=== PATIENT | female | born 1930 | race African-American/Black ===

== ENCOUNTER 2016-12-18 08:49 | Inpatient (IN) | payer MEDICARE, BC, MEDICAID ==
[~2016-12-18] VITALS: Ht 165.1 cm; Wt 68.0 kg
[~2016-12-18 08:49] MED LIST: AMLO10TA4 GT; ASPI-1035 GT; ATOR10TA GT; CLON0.1T GT; DOCU-138 GT; DORZ10DR12 EACHEYE; FERR-63 GT; KEPP250 GT; LACT10SO7 GT; LANS30CA55 GT; MAG355OR39 GT; MEMA10TA11 GT; TRAVO EACHEYE; XALAO EACHEYE
[2016-12-18] MEDS ORDERED: PIPERACILLIN/TAZ 3.375G PREMIX 50 ML IV ONE (09:45)
[2016-12-18] MEDS ORDERED: VANCOMYCIN 1 G PREMIX 200 ML IV ONE (09:45)
[2016-12-18 10:14] LABS: BASOPHILS % 0.6 % (0.0-2.0); HEMATOCRIT. 45.6 % (36.0-48.0); LYMPHOCYTES % 26.1 % (20.0-50.0); MEAN CORPUSCULAR HEMOGLOBIN 27.8 pg (28.0-32.0); MEAN CORPUSCULAR VOLUME 84.3 fL (81.0-99.0); MEAN PLATELET VOLUME 9.8 fl (7.4-10.4); MONOCYTES % 8.7 % (2.0-8.0); NEUTROPHILS % 61.6 % (40.0-76.0); PLATELET 202 x1000/uL (130-400); RED BLOOD CELL COUNT 5.42 mill/uL (4.2-5.4); RED CELL DISTRIBUTION WIDTH 14.7 % (11.6-14.6)
[2016-12-18 10:21] LABS: CHLORIDE 109 mEq/L (98-107); INDEX HEMOLYSI 1 (1-3); INDEX ICTERIC 1 (1-4); INDEX LIPEMIC 1 (1-3)
[2016-12-18 10:32] LABS: ALANINE AMINOTRANSFERASE 19 IU/L (13-61); ALBUMIN 3.6 g/dL (3.4-5.0); ANION GAP 11; CALCIUM 9.2 mg/dL (8.5-10.1); CARBON DIOXIDE 31 mEq/L (21-32); TROPONIN I < 0.02 ng/mL (0.00-0.04); UREA NITROGEN BLOOD 9 mg/dL (7-21); eGFR > 60 mL/min (>60)
[2016-12-18 10:34] LABS: PARTIAL THROMBOPLASTIN TIME 27.8 sec (24.0-34.0); PROTHROMBIN TIME 10.8 sec
[2016-12-18 11:12] LABS: CLARITY URINE CLOUDY (CLEAR); COLOR URINE YELLOW (YELLOW); GLUCOSE URINE NEGATIVE (NEGATIVE); KETONES URINE NEGATIVE (NEGATIVE); LEUKOCYTE ESTERASE URINE NEGATIVE (NEGATIVE); NITRITE URINE NEGATIVE (NEGATIVE); OCCULT BLOOD URINE NEGATIVE (NEGATIVE); PH URINE 7.5 (4.5-8.0); PROTEIN URINE NEGATIVE (NEGATIVE); SPECIFIC GRAVITY URINE 1.011 (1.005-1.030)
[2016-12-18 11:28] LABS: AMORPHOUS SEDIMENT URINE 3+ /lpf; BACTERIA URINE TRACE; RBC URINE NONE SEEN /hpf (0-2); SQUAMOUS EPITHELIAL CELL URINE 2+ /lpf (RARE/1+); WBC URINE 0-2 /hpf (0-2)
[2016-12-18] MEDS: PANTOPRAZOLE SODIUM 40 MG/VIAL IV SCH (12:41)
[2016-12-18] MEDS ORDERED: HYDROMORPHONE HCL/PF 2MG/ML CPJ IV PRN (13:30)
[2016-12-18] MEDS ORDERED: GUAIFENESIN 200MG/10ML SUGAR FREE UDC PO PRN (13:30)
[2016-12-18] MEDS ORDERED: DOCUSATE SODIUM 100MG CAPSULE PO PRN (13:30)
[2016-12-18] MEDS ORDERED: LORAZEPAM 2MG/ML CPJ IV PRN (13:30)
[2016-12-18] MEDS ORDERED: MAGNESIUM/ALUMINUM HYDROXIDE/SIMETHICONE 30ML UDC PO PRN (13:30)
[2016-12-18] MEDS ORDERED: DIPHENHYDRAMINE 50MG/ML VIAL IV PRN (13:30)
[2016-12-18] MEDS ORDERED: CLONIDINE 0.1MG TABLET PO PRN (13:30)
[2016-12-18] MEDS ORDERED: ONDANSETRON HCL 4MG/2ML VIAL IV PRN (13:30)
[2016-12-18] MEDS ORDERED: ACETAMINOPHEN 325MG TABLET PO PRN (13:30)
[2016-12-18] MEDS ORDERED: HYDROCODONE/ACETAMINOPHEN 5/325MG TABLET PO PRN (13:30)
[2016-12-18] MEDS ORDERED: IPRATROPIUM/ALBUTEROL 0.5-3(2.5)MG/3ML NEB INH PRN (13:30)
[2016-12-18] MEDS ORDERED: IBUPROFEN 600MG TABLET PO ONE (13:45)
[2016-12-18] MEDS ORDERED: NA PHOS,M-B/NA PHOS,DI-BA ENEMA 118ML PR PRN (14:30)
[2016-12-18] MEDS ORDERED: ENOXAPARIN 40MG/0.4ML SYR SUBCUT SCH (15:00)
[2016-12-18 16:00] VITALS: BP 128/82
[2016-12-18] MEDS: DEXT 5%/0.45% NACL 1000ML 1,000 ML IV SCH (16:39)
[2016-12-18] MEDS: PIPERACILLIN/TAZ 3.375G PREMIX 50 ML IV SCH (19:02)
[2016-12-18 19:13] LABS: CHLORIDE 111 mEq/L (98-107); INDEX HEMOLYSI 1 (1-3); INDEX ICTERIC 1 (1-4); INDEX LIPEMIC 1 (1-3)
[2016-12-18 19:19] LABS: ANION GAP 11; CALCIUM 8.8 mg/dL (8.5-10.1); CARBON DIOXIDE 27 mEq/L (21-32); UREA NITROGEN BLOOD 9 mg/dL (7-21); eGFR > 60 mL/min (>60)
[2016-12-18 20:00] VITALS: BP_SYST 117; BP_SYST 140; BP_DIAS 77; BP_DIAS 86
[2016-12-19] VITALS: BP 140/86
[2016-12-19] MEDS: PIPERACILLIN/TAZ 3.375G PREMIX 50 ML IV SCH ×3 (02:01→19:02)
[2016-12-19 04:00] VITALS: BP 135/90
[2016-12-19] MEDS ORDERED: CEFAZOLIN 1000MG PREMIX 50 ML IV NR (05:00)
[2016-12-19 07:19] LABS: INR 1.1; PARTIAL THROMBOPLASTIN TIME 25.6 sec (24.0-34.0)
[2016-12-19 07:27] LABS: BASOPHILS % 0.6 % (0.0-2.0); EOSINOPHILS % 2.6 % (0.0-5.0); HEMATOCRIT. 41.9 % (36.0-48.0); HEMOGLOBIN. 13.5 g/dL (12.0-16.0); LYMPHOCYTES % 25.3 % (20.0-50.0); MEAN CORPUSCULAR HEMOGLOBIN 27.4 pg (28.0-32.0); MEAN CORPUSCULAR HGB CONC 32.1 g/dL (31.0-37.0); MEAN CORPUSCULAR VOLUME 85.5 fL (81.0-99.0); MEAN PLATELET VOLUME 10.2 fl (7.4-10.4); MONOCYTES % 7.7 % (2.0-8.0); NEUTROPHILS % 63.8 % (40.0-76.0); PLATELET 190 x1000/uL (130-400); RED CELL DISTRIBUTION WIDTH 15.4 % (11.6-14.6); WHITE BLOOD COUNT 8.4 x1000/uL (4.5-11.0)
[2016-12-19 08:00] VITALS: BP 153/92
[2016-12-19 08:27] LABS: ALANINE AMINOTRANSFERASE 15 IU/L (13-61); ALBUMIN 3.2 g/dL (3.4-5.0); ANION GAP 10; CALCIUM 8.7 mg/dL (8.5-10.1); CARBON DIOXIDE 29 mEq/L (21-32); CHLORIDE 111 mEq/L (98-107); HDL CHOLESTEROL 53 mg/dL (40-59); INDEX HEMOLYSI 4 (1-3); INDEX ICTERIC 1 (1-4); INDEX LIPEMIC 1 (1-3); LDL CHOLESTEROL 87 mg/dL (5-100); TRIGLYCERIDE 131 mg/dL (0-150); UREA NITROGEN BLOOD 7 mg/dL (7-21); eGFR > 60 mL/min (>60)
[2016-12-19] MEDS ORDERED: VANCOMYCIN 1 G PREMIX 200 ML IV SCH (09:00)
[2016-12-19] MEDS: DEXT 5%/0.45% NACL 1000ML 1,000 ML IV SCH ×2 (10:05→22:17)
[2016-12-19] MEDS: VANCOMYCIN 1 G PREMIX 200 ML IV SCH (10:06)
[2016-12-19] MEDS: PANTOPRAZOLE SODIUM 40 MG/VIAL IV SCH (10:07)
[2016-12-19] MEDS ORDERED: SIMETHICONE 40 MG/0.6 ML 30ML ONE ×2 (11:45→13:22)
[2016-12-19] MEDS ORDERED: SODIUM CHLORIDE 0.9% 10ML VIAL ONE (11:45)
[2016-12-19 12:00] VITALS: BP 140/73
[2016-12-19] MEDS ORDERED: FENTANYL CITRATE/PF 50MCG/ML 2ML VIAL ONE (13:22)
[2016-12-19] MEDS ORDERED: MIDAZOLAM HCL 5 MG/5 ML VIAL ONE (13:23)
[2016-12-19] MEDS ORDERED: MIDAZOLAM HCL 2 MG/2 ML VIAL IV PRN (13:36)
[2016-12-19 16:00] VITALS: BP 128/78
[2016-12-19] MEDS ORDERED: LACTULOSE 20G/30ML UDC GT PRN (16:30)
[2016-12-19] MEDS ORDERED: MAGNESIUM/ALUMINUM HYDROXIDE/SIMETHICONE 30ML UDC GT SCH (16:30)
[2016-12-19] MEDS ORDERED: CLONIDINE 0.1MG TABLET GT PRN (16:30)
[2016-12-19] MEDS ORDERED: LANSOPRAZOLE 30MG DR CAPSULE GT SCH (17:20)
[2016-12-19] MEDS: DORZOLAM/TIMOLOL 2.23/0.68% OPHTH DROPS 10ML EACHEYE SCH (19:02)
[2016-12-19 20:00] VITALS: BP 129/64
[2016-12-19] MEDS: ATORVASTATIN CALCIUM 10MG TABLET GT SCH (22:17)
[2016-12-19] MEDS: LEVETIRACETAM 500MG/5ML CUP GT SCH (22:17)
[2016-12-19] MEDS: MEMANTINE HCL 10MG TABLET GT SCH (22:17)
[2016-12-20] VITALS: BP 119/67
[2016-12-20] MEDS: LATANOPROST 0.005% OPHTH DROPS 2.5ML EACHEYE SCH ×2 (01:12→20:10)
[2016-12-20] MEDS: PIPERACILLIN/TAZ 3.375G PREMIX 50 ML IV SCH ×3 (01:12→18:44)
[2016-12-20 04:00] VITALS: BP 142/78
[2016-12-20 08:00] VITALS: BP 186/92
[2016-12-20] MEDS ORDERED: TRAVOPROST EACHEYE SCH (09:00)
[2016-12-20 09:39] LABS: BASOPHILS % 0.7 % (0.0-2.0); HEMATOCRIT. 41.2 % (36.0-48.0); HEMOGLOBIN. 13.3 g/dL (12.0-16.0); LYMPHOCYTES % 23.8 % (20.0-50.0); MEAN CORPUSCULAR HEMOGLOBIN 27.3 pg (28.0-32.0); MEAN CORPUSCULAR HGB CONC 32.3 g/dL (31.0-37.0); MEAN CORPUSCULAR VOLUME 84.5 fL (81.0-99.0); MEAN PLATELET VOLUME 9.8 fl (7.4-10.4); MONOCYTES % 8.1 % (2.0-8.0); NEUTROPHILS % 64.4 % (40.0-76.0); PLATELET 182 x1000/uL (130-400); RED BLOOD CELL COUNT 4.88 mill/uL (4.2-5.4); RED CELL DISTRIBUTION WIDTH 14.8 % (11.6-14.6); WHITE BLOOD COUNT 7.5 x1000/uL (4.5-11.0)
[2016-12-20] MEDS: PANTOPRAZOLE SODIUM 40 MG/VIAL IV SCH (09:47)
[2016-12-20] MEDS: MEMANTINE HCL 10MG TABLET GT SCH ×2 (09:47→20:10)
[2016-12-20] MEDS: VANCOMYCIN 1 G PREMIX 200 ML IV SCH (09:47)
[2016-12-20] MEDS: DOCUSATE SODIUM 100MG CAPSULE GT SCH (09:47)
[2016-12-20] MEDS: LEVETIRACETAM 500MG/5ML CUP GT SCH ×2 (09:48→20:10)
[2016-12-20] MEDS: DORZOLAM/TIMOLOL 2.23/0.68% OPHTH DROPS 10ML EACHEYE SCH ×2 (09:48→18:44)
[2016-12-20] MEDS: AMLODIPINE 10MG TABLET GT SCH (09:48)
[2016-12-20] MEDS: DEXT 5%/0.45% NACL 1000ML 1,000 ML IV SCH (09:54)
[2016-12-20 10:19] LABS: ANION GAP 10; CALCIUM 8.2 mg/dL (8.5-10.1); CARBON DIOXIDE 27 mEq/L (21-32); CHLORIDE 109 mEq/L (98-107); INDEX HEMOLYSI 2 (1-3); INDEX ICTERIC 1 (1-4); INDEX LIPEMIC 1 (1-3); UREA NITROGEN BLOOD 9 mg/dL (7-21); eGFR > 60 mL/min (>60)
[2016-12-20 12:00] VITALS: BP 167/112
[2016-12-20 16:00] VITALS: BP 128/92
[2016-12-20 20:00] VITALS: BP 156/98
[2016-12-20] MEDS ORDERED: POTASSIUM CHLORIDE 20MEQ TABLET SR PO NR (20:00)
[2016-12-20] MEDS: ATORVASTATIN CALCIUM 10MG TABLET GT SCH (20:10)
[2016-12-21] VITALS: BP 155/88
[2016-12-21] MEDS: PIPERACILLIN/TAZ 3.375G PREMIX 50 ML IV SCH ×3 (02:12→17:38)
[2016-12-21] MEDS: DEXT 5%/0.45% NACL 1000ML 1,000 ML IV SCH ×2 (02:13→16:11)
[2016-12-21 04:00] VITALS: BP 149/85
[2016-12-21 06:58] LABS: HEMATOCRIT. 40.5 % (36.0-48.0); HEMOGLOBIN. 13.5 g/dL (12.0-16.0); MEAN CORPUSCULAR HGB CONC 33.4 g/dL (31.0-37.0); PLATELET 194 x1000/uL (130-400); RED BLOOD CELL COUNT 4.82 mill/uL (4.2-5.4); RED CELL DISTRIBUTION WIDTH 14.9 % (11.6-14.6); WHITE BLOOD COUNT 8.4 x1000/uL (4.5-11.0)
[2016-12-21 07:17] LABS: ANION GAP 10; CALCIUM 8.1 mg/dL (8.5-10.1); CARBON DIOXIDE 26 mEq/L (21-32); CHLORIDE 111 mEq/L (98-107); INDEX HEMOLYSI 1 (1-3); INDEX ICTERIC 1 (1-4); INDEX LIPEMIC 1 (1-3); UREA NITROGEN BLOOD 6 mg/dL (7-21); eGFR > 60 mL/min (>60)
[2016-12-21 08:00] VITALS: BP 152/96
[2016-12-21] MEDS: PANTOPRAZOLE SODIUM 40 MG/VIAL IV SCH (08:50)
[2016-12-21] MEDS: MEMANTINE HCL 10MG TABLET GT SCH (08:51)
[2016-12-21] MEDS: VANCOMYCIN 1 G PREMIX 200 ML IV SCH (08:51)
[2016-12-21] MEDS: DORZOLAM/TIMOLOL 2.23/0.68% OPHTH DROPS 10ML EACHEYE SCH ×2 (08:51→17:38)
[2016-12-21] MEDS: DOCUSATE SODIUM 100MG CAPSULE GT SCH (08:51)
[2016-12-21] MEDS: AMLODIPINE 10MG TABLET GT SCH (08:51)
[2016-12-21] MEDS: LEVETIRACETAM 500MG/5ML CUP GT SCH (08:52)
[2016-12-21 10:20] LABS: PLATELET ESTIMATE NORMAL
[2016-12-21 12:00] VITALS: BP 148/83
[2016-12-21 16:00] VITALS: BP 146/77
[2016-12-21 17:58] VITALS: BP 146/77
[2016-12-21] MEDS ORDERED: VANCOMYCIN 750 MG PREMIX 150 ML IV SCH (21:00)
== END 2016-12-21 19:10 | DRG 393 ==
LOC: ER 08:57 → 6EST 10:26
PROVIDERS: ADMIT Internal Medicine; ATTEND Internal Medicine
PROC: 0D20XUZ Change Feeding Device in Upper Intestinal Tract, External Approach (ICD-10-PCS; principal; 2016-12-19 13:00)
DX: K94.23 Gastrostomy malfunction (principal); I63.9 Cerebral infarction, unspecified; L03.311 Cellulitis of abdominal wall; E46 Unspecified protein-calorie malnutrition; E87.0 Hyperosmolality and hypernatremia; E86.0 Dehydration; E78.00 Pure hypercholesterolemia, unspecified; E78.5 Hyperlipidemia, unspecified; F02.80 Dementia in other diseases classified elsewhere, unspecified severity, without behavioral disturbance, psychotic disturbance, mood disturbance, and anxiety; G30.9 Alzheimer's disease, unspecified; K20.9 Esophagitis, unspecified; G40.909 Epilepsy, unspecified, not intractable, without status epilepticus; H40.9 Unspecified glaucoma; I10 Essential (primary) hypertension; I77.810 Thoracic aortic ectasia; Z86.73 Personal history of transient ischemic attack (TIA), and cerebral infarction without residual deficits; Z79.899 Other long term (current) drug therapy; Z68.25 Body mass index [BMI] 25.0-25.9, adult
CPT/HCPCS: 36415; 51702; 71010; 80048; 80053; 80061; 80202; 81001; 83605; 84484; 85007; 85025; 85027; 85610; 85730; 87040; 87070; 87077; 87086; 87186; 87205; 93005; 96365; 96367; 96375; 99285; A4216; C1893; C9113; J0690; J2250; J2543; J3010; J3370

== ENCOUNTER 2016-12-29 08:31 | Inpatient (IN) | payer MEDICARE, BC, MEDICAID ==
[~2016-12-29] VITALS: Ht 154.9 cm; Wt 61.7 kg
[2016-12-29 09:13] LABS: BASOPHILS % 1.1 % (0.0-2.0); EOSINOPHILS % 4.8 % (0.0-5.0); HEMATOCRIT. 42.7 % (36.0-48.0); HEMOGLOBIN. 13.9 g/dL (12.0-16.0); LYMPHOCYTES % 22.4 % (20.0-50.0); MEAN CORPUSCULAR HEMOGLOBIN 27.8 pg (28.0-32.0); MEAN CORPUSCULAR HGB CONC 32.6 g/dL (31.0-37.0); MEAN CORPUSCULAR VOLUME 85.2 fL (81.0-99.0); MEAN PLATELET VOLUME 10.1 fl (7.4-10.4); MONOCYTES % 7.4 % (2.0-8.0); NEUTROPHILS % 64.3 % (40.0-76.0); PLATELET 166 x1000/uL (130-400); RED BLOOD CELL COUNT 5.01 mill/uL (4.2-5.4); RED CELL DISTRIBUTION WIDTH 15.4 % (11.6-14.6); WHITE BLOOD COUNT 9.7 x1000/uL (4.5-11.0)
[2016-12-29 09:23] LABS: ALBUMIN 3.1 g/dL (3.4-5.0); ANION GAP 10; CALCIUM 8.7 mg/dL (8.5-10.1); CARBON DIOXIDE 30 mEq/L (21-32); CHLORIDE 110 mEq/L (98-107); INDEX HEMOLYSI 1 (1-3); INDEX ICTERIC 1 (1-4); INDEX LIPEMIC 1 (1-3); UREA NITROGEN BLOOD 17 mg/dL (7-21)
[2016-12-29 09:28] LABS: ALANINE AMINOTRANSFERASE 19 IU/L (13-61); eGFR > 60 mL/min (>60)
[2016-12-29 09:31] LABS: PROTHROMBIN TIME 10.5 sec
[2016-12-29 10:32] LABS: CLARITY URINE CLOUDY (CLEAR); COLOR URINE YELLOW (YELLOW); GLUCOSE URINE NEGATIVE (NEGATIVE); KETONES URINE NEGATIVE (NEGATIVE); LEUKOCYTE ESTERASE URINE TRACE (NEGATIVE); NITRITE URINE NEGATIVE (NEGATIVE); OCCULT BLOOD URINE NEGATIVE (NEGATIVE); PROTEIN URINE NEGATIVE (NEGATIVE); SPECIFIC GRAVITY URINE 1.022 (1.005-1.030)
[2016-12-29] MEDS ORDERED: HYDROMORPHONE HCL/PF 2MG/ML CPJ IV PRN (10:45)
[2016-12-29] MEDS ORDERED: DOCUSATE SODIUM 100MG CAPSULE PO PRN (10:45)
[2016-12-29] MEDS ORDERED: DIPHENHYDRAMINE 50MG/ML VIAL IV PRN (10:45)
[2016-12-29] MEDS ORDERED: IPRATROPIUM/ALBUTEROL 0.5-3(2.5)MG/3ML NEB INH PRN (10:45)
[2016-12-29] MEDS ORDERED: ACETAMINOPHEN 325MG TABLET PO PRN (10:45)
[2016-12-29] MEDS ORDERED: ONDANSETRON HCL 4MG/2ML VIAL IV PRN (10:45)
[2016-12-29] MEDS ORDERED: MAGNESIUM/ALUMINUM HYDROXIDE/SIMETHICONE 30ML UDC PO PRN (10:45)
[2016-12-29] MEDS ORDERED: CLONIDINE 0.1MG TABLET PO PRN (10:45)
[2016-12-29] MEDS ORDERED: NA PHOS,M-B/NA PHOS,DI-BA ENEMA 118ML PR PRN (10:45)
[2016-12-29] MEDS ORDERED: GUAIFENESIN 200MG/10ML SUGAR FREE UDC PO PRN (10:45)
[2016-12-29] MEDS ORDERED: LORAZEPAM 2MG/ML CPJ IV PRN (10:45)
[2016-12-29] MEDS ORDERED: HYDROCODONE/ACETAMINOPHEN 5/325MG TABLET PO PRN (10:45)
[2016-12-29 10:46] LABS: SQUAMOUS EPITHELIAL CELL URINE 1+ /lpf (RARE/1+)
[2016-12-29 10:47] LABS: RBC URINE 0-2 /hpf (0-2)
[2016-12-29 10:48] LABS: AMORPHOUS SEDIMENT URINE 2+ /lpf; BACTERIA URINE 1+
[2016-12-29 10:57] VITALS: BP 142/87
[2016-12-29 12:00] VITALS: BP 142/87
[2016-12-29] MEDS: ENOXAPARIN 40MG/0.4ML SYR SUBCUT SCH (12:00)
[2016-12-29 16:00] VITALS: BP 177/103
[2016-12-29 20:00] VITALS: BP 147/99
[2016-12-29] MEDS ORDERED: MAGNESIUM/ALUMINUM HYDROXIDE/SIMETHICONE 30ML UDC GT PRN (20:15)
[2016-12-29] MEDS ORDERED: CLONIDINE 0.1MG TABLET GT PRN (20:15)
[2016-12-29] MEDS: LEVETIRACETAM 250MG TABLET GT SCH (20:15)
[2016-12-29] MEDS ORDERED: AMLODIPINE 10MG TABLET GT SCH (20:30)
[2016-12-29] MEDS: MEMANTINE HCL 10MG TABLET GT SCH (21:00)
[2016-12-29] MEDS: ATORVASTATIN CALCIUM 10MG TABLET PO SCH (21:00)
[2016-12-30] VITALS: BP 137/96
[2016-12-30 04:00] VITALS: BP 145/98
[2016-12-30] MEDS: DEXT 5%/0.45% NACL 1000ML 1,000 ML IV SCH ×2 (04:37→22:44)
[2016-12-30 08:00] VITALS: BP 134/99
[2016-12-30] MEDS: LEVETIRACETAM 250MG TABLET GT SCH ×2 (08:15→22:43)
[2016-12-30] MEDS: AMLODIPINE 10MG TABLET PO SCH (09:00)
[2016-12-30] MEDS: ENOXAPARIN 40MG/0.4ML SYR SUBCUT SCH (09:00)
[2016-12-30 10:11] LABS: BASOPHILS % 0.5 % (0.0-2.0); EOSINOPHILS % 2.5 % (0.0-5.0); HEMATOCRIT. 43.9 % (36.0-48.0); HEMOGLOBIN. 14.1 g/dL (12.0-16.0); LYMPHOCYTES % 21.5 % (20.0-50.0); MEAN CORPUSCULAR HEMOGLOBIN 27.5 pg (28.0-32.0); MEAN CORPUSCULAR HGB CONC 32.2 g/dL (31.0-37.0); MEAN CORPUSCULAR VOLUME 85.6 fL (81.0-99.0); MEAN PLATELET VOLUME 10.8 fl (7.4-10.4); MONOCYTES % 6.9 % (2.0-8.0); NEUTROPHILS % 68.6 % (40.0-76.0); PLATELET 164 x1000/uL (130-400); RED BLOOD CELL COUNT 5.13 mill/uL (4.2-5.4); RED CELL DISTRIBUTION WIDTH 15.2 % (11.6-14.6); WHITE BLOOD COUNT 7.9 x1000/uL (4.5-11.0)
[2016-12-30] MEDS: MEMANTINE HCL 10MG TABLET GT SCH ×2 (10:39→22:43)
[2016-12-30 10:45] LABS: ALANINE AMINOTRANSFERASE 17 IU/L (13-61); ALBUMIN 2.9 g/dL (3.4-5.0); ANION GAP 11; CALCIUM 8.4 mg/dL (8.5-10.1); CARBON DIOXIDE 25 mEq/L (21-32); CHLORIDE 113 mEq/L (98-107); HDL CHOLESTEROL 51 mg/dL (40-59); INDEX HEMOLYSI 1 (1-3); INDEX ICTERIC 1 (1-4); INDEX LIPEMIC 1 (1-3); LDL CHOLESTEROL 112 mg/dL (5-100); TRIGLYCERIDE 111 mg/dL (0-150); UREA NITROGEN BLOOD 10 mg/dL (7-21); eGFR > 60 mL/min (>60)
[2016-12-30 12:00] VITALS: BP 138/99
[2016-12-30] MEDS ORDERED: DIATR MEGLU/DIATRIZOATE SOLN 120ML ONE (13:22)
[2016-12-30 16:00] VITALS: BP 127/85
[2016-12-30] MEDS: ATORVASTATIN CALCIUM 10MG TABLET PO SCH (22:43)
[2016-12-30] MEDS: ENOXAPARIN 30MG/0.3ML SYR SUBCUT SCH (22:43)
[2016-12-31 00:03] VITALS: BP 148/93
[2016-12-31 04:00] VITALS: BP 154/98
[2016-12-31 07:31] LABS: BASOPHILS % 0.5 % (0.0-2.0); EOSINOPHILS % 1.7 % (0.0-5.0); HEMATOCRIT. 44.7 % (36.0-48.0); HEMOGLOBIN. 14.6 g/dL (12.0-16.0); LYMPHOCYTES % 23.8 % (20.0-50.0); MEAN CORPUSCULAR HEMOGLOBIN 27.6 pg (28.0-32.0); MEAN CORPUSCULAR HGB CONC 32.6 g/dL (31.0-37.0); MEAN CORPUSCULAR VOLUME 84.7 fL (81.0-99.0); MEAN PLATELET VOLUME 11.1 fl (7.4-10.4); MONOCYTES % 6.1 % (2.0-8.0); NEUTROPHILS % 67.9 % (40.0-76.0); PLATELET 189 x1000/uL (130-400); RED BLOOD CELL COUNT 5.27 mill/uL (4.2-5.4); RED CELL DISTRIBUTION WIDTH 15.3 % (11.6-14.6); WHITE BLOOD COUNT 7.5 x1000/uL (4.5-11.0)
[2016-12-31 07:58] LABS: ANION GAP 13; CALCIUM 9.2 mg/dL (8.5-10.1); CARBON DIOXIDE 25 mEq/L (21-32); CHLORIDE 112 mEq/L (98-107); INDEX HEMOLYSI 1 (1-3); INDEX ICTERIC 1 (1-4); INDEX LIPEMIC 1 (1-3); UREA NITROGEN BLOOD 11 mg/dL (7-21); eGFR > 60 mL/min (>60)
[2016-12-31 08:00] VITALS: BP 139/77
[2016-12-31] MEDS: LEVETIRACETAM 250MG TABLET GT SCH ×2 (08:53→22:24)
[2016-12-31] MEDS: AMLODIPINE 10MG TABLET PO SCH (08:53)
[2016-12-31] MEDS: DOCUSATE SODIUM 100MG CAPSULE GT SCH (08:53)
[2016-12-31] MEDS: MEMANTINE HCL 10MG TABLET GT SCH ×2 (08:53→22:27)
[2016-12-31 12:00] VITALS: BP 145/95
[2016-12-31] MEDS ORDERED: PROPOFOL 200MG/20ML VIAL IV ONE (12:51)
[2016-12-31] MEDS ORDERED: FENTANYL CITRATE/PF 50MCG/ML 2ML VIAL ONE (12:52)
[2016-12-31] MEDS ORDERED: MIDAZOLAM HCL 2 MG/2 ML VIAL ONE (12:52)
[2016-12-31] MEDS: DEXT 5%/0.45% NACL 1000ML 1,000 ML IV SCH (14:16)
[2016-12-31 16:00] VITALS: BP 146/88
[2016-12-31] MEDS ORDERED: ACETAMINOPHEN 325MG TABLET GT PRN (16:46)
[2016-12-31] MEDS ORDERED: AMLODIPINE 10MG TABLET GT SCH (16:55)
[2016-12-31] MEDS ORDERED: ATORVASTATIN CALCIUM 10MG TABLET GT SCH (16:56)
[2016-12-31] MEDS ORDERED: CLONIDINE 0.1MG TABLET GT PRN (16:59)
[2016-12-31] MEDS ORDERED: GUAIFENESIN 200MG/10ML SUGAR FREE UDC GT PRN (17:00)
[2016-12-31 20:04] VITALS: BP 152/97
[2016-12-31] MEDS: ENOXAPARIN 30MG/0.3ML SYR SUBCUT SCH (22:24)
[2016-12-31] MEDS: ATORVASTATIN CALCIUM 10MG TABLET GT SCH (22:24)
[2017-01-01 00:10] VITALS: BP 159/97
[2017-01-01 03:59] VITALS: BP 155/108
[2017-01-01 08:00] VITALS: BP 131/92
[2017-01-01] MEDS: DOCUSATE SODIUM 100MG CAPSULE GT SCH (09:57)
[2017-01-01] MEDS: LEVETIRACETAM 250MG TABLET GT SCH ×2 (09:57→22:09)
[2017-01-01] MEDS: AMLODIPINE 10MG TABLET GT SCH (09:58)
[2017-01-01] MEDS: MEMANTINE HCL 10MG TABLET GT SCH ×2 (09:58→22:09)
[2017-01-01 12:00] VITALS: BP 146/101
[2017-01-01 16:00] VITALS: BP 132/90
[2017-01-01] MEDS: ATORVASTATIN CALCIUM 10MG TABLET GT SCH (22:09)
[2017-01-01] MEDS: ENOXAPARIN 30MG/0.3ML SYR SUBCUT SCH (22:11)
[2017-01-02] VITALS: BP 140/82
[2017-01-02 04:00] VITALS: BP 148/75
[2017-01-02] MEDS: DEXT 5%/0.45% NACL 1000ML 1,000 ML IV SCH ×2 (06:50→09:19)
[2017-01-02 08:00] VITALS: BP 152/84
[2017-01-02] MEDS: DOCUSATE SODIUM 100MG CAPSULE GT SCH (08:52)
[2017-01-02] MEDS: LEVETIRACETAM 250MG TABLET GT SCH (08:53)
[2017-01-02] MEDS: MEMANTINE HCL 10MG TABLET GT SCH (08:53)
[2017-01-02] MEDS: AMLODIPINE 10MG TABLET GT SCH (08:53)
[2017-01-02 12:00] VITALS: BP 128/85
[2017-01-02 12:11] VITALS: BP 128/85
== END 2017-01-02 14:00 | DRG 919 ==
LOC: ER 08:41 → 6EST 08:57
PROVIDERS: ADMIT Internal Medicine; ATTEND Internal Medicine
PROC: 0DJ08ZZ Inspection of Upper Intestinal Tract, Via Natural or Artificial Opening Endoscopic (ICD-10-PCS; 2016-12-31)
PROC: 0D20XUZ Change Feeding Device in Upper Intestinal Tract, External Approach (ICD-10-PCS; principal; 2016-12-31 11:30)
DX: T85.528A Displacement of other gastrointestinal prosthetic devices, implants and grafts, initial encounter (principal); E43 Unspecified severe protein-calorie malnutrition; E78.5 Hyperlipidemia, unspecified; F02.80 Dementia in other diseases classified elsewhere, unspecified severity, without behavioral disturbance, psychotic disturbance, mood disturbance, and anxiety; I10 Essential (primary) hypertension; E86.0 Dehydration; G30.9 Alzheimer's disease, unspecified; F01.50 Vascular dementia, unspecified severity, without behavioral disturbance, psychotic disturbance, mood disturbance, and anxiety; G40.909 Epilepsy, unspecified, not intractable, without status epilepticus; I25.10 Atherosclerotic heart disease of native coronary artery without angina pectoris; Y83.3 Surgical operation with formation of external stoma as the cause of abnormal reaction of the patient, or of later complication, without mention of misadventure at the time of the procedure; Z93.1 Gastrostomy status; Z86.73 Personal history of transient ischemic attack (TIA), and cerebral infarction without residual deficits; Z74.01 Bed confinement status; Z68.25 Body mass index [BMI] 25.0-25.9, adult; Y92.89 Other specified places as the place of occurrence of the external cause
CPT/HCPCS: 36415; 74000; 80048; 80053; 80061; 81001; 85025; 85610; 87493; 99285; A6261; C1893; J1650; J2250; J2704; J3010; Q9963

== ENCOUNTER 2017-01-08 13:18 | Emergency (ER) | payer MEDICARE, BC, MEDICAID ==
[~2017-01-08] VITALS: Ht 165.1 cm; Wt 65.0 kg
[2017-01-08] MEDS ORDERED: LIDOCAINE HCL/EPINEPHRINE 1%-EPI 1:100,000 20 ML VIAL MC ONE (14:00)
[2017-01-08 16:49] VITALS: BP 119/74
== END 2017-01-08 17:07 | disposition home or self-care (01) ==
LOC: ER 13:32
DX: L02.413 Cutaneous abscess of right upper limb (principal); M62.48 Contracture of muscle, other site; R03.0 Elevated blood-pressure reading, without diagnosis of hypertension; G93.40 Encephalopathy, unspecified; R13.10 Dysphagia, unspecified; E78.00 Pure hypercholesterolemia, unspecified; K21.9 Gastro-esophageal reflux disease without esophagitis; H40.9 Unspecified glaucoma; D64.9 Anemia, unspecified; Z79.82 Long term (current) use of aspirin; Z79.899 Other long term (current) drug therapy
CPT/HCPCS: 10060; 99283; J3490

== ENCOUNTER 2017-04-16 11:00 | Inpatient (IN) | payer MEDICARE, BC ==
[~2017-04-16] VITALS: Ht 162.6 cm; Wt 83.5 kg
[2017-04-16] VITALS (14 sets, daily range): BP systolic 79–121; BP diastolic 34–73
[~2017-04-16 11:00] MED LIST changes: -AMLO10TA4 GT; -ASPI-1035 GT; +ASPI-1159 GT; -ATOR10TA GT; -LACT10SO7 GT; -MAG355OR39 GT
[2017-04-16] MEDS ORDERED: SODIUM CHLORIDE 0.9% 1,000 ML IV ONE (11:20)
[2017-04-16] MEDS ORDERED: ACETAMINOPHEN 650MG SUPP PR STA (11:20)
[2017-04-16] MEDS ORDERED: PIPERACILLIN/TAZ 3.375G PREMIX 50 ML IV ONE (11:30)
[2017-04-16] MEDS ORDERED: VANCOMYCIN 1 G PREMIX 200 ML IV ONE (11:30)
[2017-04-16 11:45] LABS: BASOPHILS % 0.6 % (0.0-2.0); HEMATOCRIT. 47.2 % (36.0-48.0); HEMOGLOBIN. 14.2 g/dL (12.0-16.0); LYMPHOCYTES % 11.2 % (20.0-50.0); MEAN CORPUSCULAR HEMOGLOBIN 26.5 pg (28.0-32.0); MEAN CORPUSCULAR VOLUME 88.1 fL (81.0-99.0); MEAN PLATELET VOLUME 11.4 fl (7.4-10.4); MONOCYTES % 4.2 % (2.0-8.0); PLATELET 228 x1000/uL (130-400); RED BLOOD CELL COUNT 5.35 mill/uL (4.2-5.4); RED CELL DISTRIBUTION WIDTH 21.9 % (11.6-14.6)
[2017-04-16 11:54] LABS: INR 1.2; PROTHROMBIN TIME 12.4 sec
[2017-04-16 12:01] LABS: CARBON DIOXIDE 26 mEq/L (21-32); CHLORIDE 128 mEq/L (98-107)
[2017-04-16 12:08] LABS: TROPONIN I 0.62 ng/mL (0.00-0.04)
[2017-04-16 12:23] LABS: BG BASE EXCESS -1.5 mmol/L (-2.0-2.0); BG CARBOXYHEMOGLOBIN 0.2 % (0.5-1.5); BG DEOXYHEMOGLOBIN 0.9 % (0.0-5.0); BG FRACTION INSPIRED OXYGEN 99.8; BG HCO3 ACT 19.4 mmol/L (22.0-26.0); BG METHEMOGLOBIN 0.2 % (0.0-1.5); BG OXYGEN SATURATION 99.1 % (92.0-98.5); BG OXYHEMOGLOBIN 98.7 % (94.0-97.0); BG PCO2 23.6 mmHg (35.0-45.0); BG PH 7.533 (7.350-7.450); BG PO2 183.7 mmHg (75.0-100.0); BG SAMPLE SITE RIGHT RADIAL; BG TOTAL HEMOGLOBIN 13.1 g/dL (12.0-18.0); BG VENT MODE MASK - NRB
[2017-04-16] MEDS ORDERED: KETOROLAC 15MG/ML VIAL IV ONE (14:15)
[2017-04-16] MEDS ORDERED: LEVOFLOXACIN 500MG PREMIX 100 ML IV SCH (14:45)
[2017-04-16] MEDS ORDERED: IPRATROPIUM/ALBUTEROL 0.5-3(2.5)MG/3ML NEB HHN PRN (14:45)
[2017-04-16] MEDS ORDERED: ACETAMINOPHEN 650MG SUPP PR ONE (16:00)
[2017-04-16 16:15] LABS: CLARITY URINE CLOUDY (CLEAR); COLOR URINE DARK YELLOW (YELLOW); GLUCOSE URINE NEGATIVE (NEGATIVE); KETONES URINE TRACE (NEGATIVE); LEUKOCYTE ESTERASE URINE 2+ (NEGATIVE); NITRITE URINE NEGATIVE (NEGATIVE); OCCULT BLOOD URINE NEGATIVE (NEGATIVE); PROTEIN URINE 2+ (NEGATIVE); SPECIFIC GRAVITY URINE 1.024 (1.005-1.030)
[2017-04-16] MEDS ORDERED: ZOSYN IVPB XX SCH (17:15)
[2017-04-16] MEDS: PIPERACILLIN/TAZ 3.375G PREMIX 50 ML IV SCH (21:10)
[2017-04-16] MEDS ORDERED: SODIUM CHLORIDE 0.9% 500 ML IV ONE (22:45)
[2017-04-16] MEDS ORDERED: SODIUM CHLORIDE 0.9% 1,000 ML IV SCH (22:50)
[2017-04-17] VITALS (12 sets, daily range): BP systolic 96–132; BP diastolic 54–74
[2017-04-17] MEDS: PIPERACILLIN/TAZ 3.375G PREMIX 50 ML IV SCH ×4 (03:19→21:55)
[2017-04-17] MEDS: VANCOMYCIN 750 MG PREMIX 150 ML IV SCH ×2 (04:36→23:08)
[2017-04-17] MEDS ORDERED: DIATR MEGLU/DIATRIZOATE SOLN 30ML PO SCH (09:00)
[2017-04-17] MEDS: PANTOPRAZOLE SODIUM 40 MG/VIAL IV SCH (09:14)
[2017-04-17] MEDS: DEXTROSE 5% WATER 1,000 ML IV SCH (09:15)
[2017-04-17 09:58] LABS: HEMATOCRIT. 33.2 % (36.0-48.0); HEMOGLOBIN. 10.1 g/dL (12.0-16.0); MEAN CORPUSCULAR HEMOGLOBIN 26.7 pg (28.0-32.0); MEAN CORPUSCULAR VOLUME 87.9 fL (81.0-99.0); MEAN PLATELET VOLUME 11.4 fl (7.4-10.4); PLATELET 121 x1000/uL (130-400); RED BLOOD CELL COUNT 3.78 mill/uL (4.2-5.4); RED CELL DISTRIBUTION WIDTH 21.2 % (11.6-14.6)
[2017-04-17 10:10] LABS: CHLORIDE 133 mEq/L (98-107)
[2017-04-17 10:17] LABS: CARBON DIOXIDE 24 mEq/L (21-32)
[2017-04-17 11:40] LABS: NUCLEATED RED BLOOD CELLS 1 /100 WBC
[2017-04-17 12:24] LABS: T4 FREE 0.86 ng/dL (0.76-1.46)
[2017-04-17] MEDS: ENOXAPARIN 40MG/0.4ML SYR SUBCUT SCH (14:53)
[2017-04-17 16:29] LABS: CREATINE KINASE MB FRACTION 2.7 ng/mL (0.5-3.6); TROPONIN I 0.26 ng/mL (0.00-0.04)
[2017-04-18] VITALS (19 sets, daily range): BP systolic 90–147; BP diastolic 53–75
[2017-04-18 00:57] LABS: CREATINE KINASE MB FRACTION 2.4 ng/mL (0.5-3.6); TROPONIN I 0.22 ng/mL (0.00-0.04)
[2017-04-18] MEDS: DEXTROSE 5% WATER 1,000 ML IV SCH ×3 (03:44→20:49)
[2017-04-18] MEDS: PIPERACILLIN/TAZ 3.375G PREMIX 50 ML IV SCH ×4 (03:46→22:58)
[2017-04-18 06:58] LABS: BASOPHILS % 0.3 % (0.0-2.0); EOSINOPHILS % 1.4 % (0.0-5.0); HEMATOCRIT. 32.6 % (36.0-48.0); HEMOGLOBIN. 9.8 g/dL (12.0-16.0); LYMPHOCYTES % 9.9 % (20.0-50.0); MEAN CORPUSCULAR HEMOGLOBIN 26.6 pg (28.0-32.0); MEAN CORPUSCULAR VOLUME 88.3 fL (81.0-99.0); MEAN PLATELET VOLUME 11.4 fl (7.4-10.4); MONOCYTES % 2.7 % (2.0-8.0); NEUTROPHILS % 85.7 % (40.0-76.0); PLATELET 104 x1000/uL (130-400); RED CELL DISTRIBUTION WIDTH 21.2 % (11.6-14.6)
[2017-04-18 08:01] LABS: CARBON DIOXIDE 24 mEq/L (21-32); CHLORIDE 124 mEq/L (98-107)
[2017-04-18 08:03] LABS: CREATINE KINASE 528 IU/L (26-192); CREATINE KINASE MB FRACTION 1.7 ng/mL (0.5-3.6); TROPONIN I 0.12 ng/mL (0.00-0.04)
[2017-04-18] MEDS: ENOXAPARIN 40MG/0.4ML SYR SUBCUT SCH (08:47)
[2017-04-18] MEDS ORDERED: POTASSIUM CHLORIDE 20MEQ TABLET SR PO NR (09:15)
[2017-04-18] MEDS ORDERED: POTASSIUM CHLORIDE INJ 40 MEQ in DEXT 5% WATER 250 ML IV SCH (10:00)
[2017-04-18] MEDS: VANCOMYCIN 750 MG PREMIX 150 ML IV SCH (18:06)
[2017-04-19] VITALS (12 sets, daily range): BP systolic 107–149; BP diastolic 54–93
[2017-04-19] MEDS ORDERED: POTASSIUM CHLORIDE 20MEQ TABLET SR PO SCH
[2017-04-19] MEDS ORDERED: POTASSIUM CHLORIDE 20MEQ/PACKET PO SCH
[2017-04-19] MEDS: PIPERACILLIN/TAZ 3.375G PREMIX 50 ML IV SCH ×2 (03:56→09:20)
[2017-04-19 06:25] LABS: CARBON DIOXIDE 25 mEq/L (21-32); CHLORIDE 118 mEq/L (98-107)
[2017-04-19 06:29] LABS: BASOPHILS % 0.5 % (0.0-2.0); EOSINOPHILS % 2.9 % (0.0-5.0); HEMATOCRIT. 32.3 % (36.0-48.0); LYMPHOCYTES % 10.7 % (20.0-50.0); MEAN CORPUSCULAR VOLUME 86.7 fL (81.0-99.0); MEAN PLATELET VOLUME 11.7 fl (7.4-10.4); MONOCYTES % 2.7 % (2.0-8.0); NEUTROPHILS % 83.2 % (40.0-76.0); PLATELET 116 x1000/uL (130-400); RED BLOOD CELL COUNT 3.72 mill/uL (4.2-5.4); RED CELL DISTRIBUTION WIDTH 20.8 % (11.6-14.6)
[2017-04-19] MEDS: PANTOPRAZOLE SODIUM 40 MG/VIAL IV SCH (08:02)
[2017-04-19] MEDS: ENOXAPARIN 40MG/0.4ML SYR SUBCUT SCH (08:02)
[2017-04-19] MEDS ORDERED: POTASSIUM CHLORIDE INJ 60 MEQ in DEXT 5% WATER 500 ML IV SCH (09:00)
[2017-04-19] MEDS ORDERED: MEROPENEM 1,000 MG in SODIUM CHLORIDE 0.9% 100 ML IV SCH (11:00)
[2017-04-19] MEDS: MEROPENEM 1,000 MG in SODIUM CHLORIDE 0.9% 100 ML IV SCH ×2 (11:24→23:09)
[2017-04-19] MEDS ORDERED: DIATR MEGLU/DIATRIZOATE SOLN 120ML ONE (13:44)
[2017-04-19] MEDS: DEXTROSE 5% WATER 1,000 ML IV SCH (17:01)
[2017-04-19] MEDS: POTASSIUM CHLORIDE 20MEQ/PACKET PO SCH (23:20)
[2017-04-20] VITALS (12 sets, daily range): BP systolic 119–146; BP diastolic 69–83
[2017-04-20] MEDS: DEXTROSE 5% WATER 1,000 ML IV SCH ×3 (02:09→22:02)
[2017-04-20] MEDS: POTASSIUM CHLORIDE 20MEQ/PACKET PO SCH (06:12)
[2017-04-20 06:29] LABS: BASOPHILS % 0.6 % (0.0-2.0); EOSINOPHILS % 2.4 % (0.0-5.0); HEMATOCRIT. 34.9 % (36.0-48.0); HEMOGLOBIN. 10.8 g/dL (12.0-16.0); LYMPHOCYTES % 14.1 % (20.0-50.0); MEAN CORPUSCULAR HEMOGLOBIN 26.6 pg (28.0-32.0); MEAN CORPUSCULAR VOLUME 85.7 fL (81.0-99.0); MONOCYTES % 4.5 % (2.0-8.0); NEUTROPHILS % 78.4 % (40.0-76.0); PLATELET 128 x1000/uL (130-400); RED BLOOD CELL COUNT 4.07 mill/uL (4.2-5.4); RED CELL DISTRIBUTION WIDTH 20.9 % (11.6-14.6)
[2017-04-20 06:52] LABS: CARBON DIOXIDE 26 mEq/L (21-32); CHLORIDE 115 mEq/L (98-107)
[2017-04-20] MEDS: PANTOPRAZOLE SODIUM 40 MG/VIAL IV SCH (09:56)
[2017-04-20] MEDS: POTASSIUM CHLORIDE 20MEQ TABLET SR PO SCH (09:56)
[2017-04-20] MEDS: ENOXAPARIN 40MG/0.4ML SYR SUBCUT SCH (09:57)
[2017-04-20] MEDS ORDERED: POTASSIUM PHOS,M-BASIC-D-BASIC 15 MMOL in DEXT 5% WATER 245 ML IV SCH (10:00)
[2017-04-20] MEDS ORDERED: MAGNESIUM 2 G PREMIX 50 ML IV SCH (10:00)
[2017-04-20] MEDS: MEROPENEM 1,000 MG in SODIUM CHLORIDE 0.9% 100 ML IV SCH ×2 (12:19→22:00)
[2017-04-21] VITALS (17 sets, daily range): BP systolic 2–148; BP diastolic 1–86
[2017-04-21 06:56] LABS: BASOPHILS % 0.4 % (0.0-2.0); EOSINOPHILS % 1.5 % (0.0-5.0); HEMATOCRIT. 32.9 % (36.0-48.0); HEMOGLOBIN. 10.3 g/dL (12.0-16.0); LYMPHOCYTES % 16.8 % (20.0-50.0); MEAN CORPUSCULAR HEMOGLOBIN 26.7 pg (28.0-32.0); MEAN CORPUSCULAR VOLUME 85.3 fL (81.0-99.0); MONOCYTES % 5.7 % (2.0-8.0); NEUTROPHILS % 75.6 % (40.0-76.0); RED BLOOD CELL COUNT 3.86 mill/uL (4.2-5.4); RED CELL DISTRIBUTION WIDTH 20.8 % (11.6-14.6)
[2017-04-21 07:06] LABS: CARBON DIOXIDE 27 mEq/L (21-32); CHLORIDE 111 mEq/L (98-107); PHOSPHORUS 1.1 mg/dL (2.5-4.9)
[2017-04-21] MEDS: ENOXAPARIN 40MG/0.4ML SYR SUBCUT SCH (08:40)
[2017-04-21] MEDS: POTASSIUM CHLORIDE 20MEQ TABLET SR PO SCH ×2 (08:40→18:22)
[2017-04-21] MEDS: PANTOPRAZOLE SODIUM 40 MG/VIAL IV SCH (08:40)
[2017-04-21] MEDS: DEXTROSE 5% WATER 1,000 ML IV SCH (08:45)
[2017-04-21] MEDS: MEROPENEM 1,000 MG in SODIUM CHLORIDE 0.9% 100 ML IV SCH ×2 (11:13→22:47)
[2017-04-21] MEDS ORDERED: KCL 20MEQ/100ML PREMIX 100 ML IV NR (12:30)
[2017-04-21] MEDS ORDERED: POTASSIUM PHOS,M-BASIC-D-BASIC 20 MMOL in DEXT 5% WATER 243.3333 ML IV NR (15:00)
[2017-04-21] MEDS: POTASSIUM CHLORIDE INJ 40 MEQ in DEXTROSE 5% WATER 1,000 ML IV SCH (15:20)
[2017-04-22] VITALS (16 sets, daily range): BP systolic 95–147; BP diastolic 60–77
[2017-04-22 07:44] LABS: CARBON DIOXIDE 26 mEq/L (21-32); CHLORIDE 114 mEq/L (98-107); PHOSPHORUS 1.3 mg/dL (2.5-4.9)
[2017-04-22] MEDS: ENOXAPARIN 40MG/0.4ML SYR SUBCUT SCH (08:34)
[2017-04-22] MEDS: PANTOPRAZOLE SODIUM 40 MG/VIAL IV SCH (08:34)
[2017-04-22] MEDS: POTASSIUM CHLORIDE 20MEQ TABLET SR PO SCH ×2 (08:35→17:00)
[2017-04-22 09:21] LABS: BASOPHILS % 0.5 % (0.0-2.0); EOSINOPHILS % 2.2 % (0.0-5.0); HEMATOCRIT. 32.7 % (36.0-48.0); HEMOGLOBIN. 10.1 g/dL (12.0-16.0); LYMPHOCYTES % 20.6 % (20.0-50.0); MEAN CORPUSCULAR HEMOGLOBIN 26.6 pg (28.0-32.0); MEAN CORPUSCULAR VOLUME 85.7 fL (81.0-99.0); MEAN PLATELET VOLUME 10.7 fl (7.4-10.4); MONOCYTES % 8.3 % (2.0-8.0); NEUTROPHILS % 68.4 % (40.0-76.0); PLATELET 172 x1000/uL (130-400); RED BLOOD CELL COUNT 3.82 mill/uL (4.2-5.4); RED CELL DISTRIBUTION WIDTH 21.1 % (11.6-14.6)
[2017-04-22] MEDS: POTASSIUM CHLORIDE INJ 40 MEQ in DEXTROSE 5% WATER 1,000 ML IV SCH (11:19)
[2017-04-22] MEDS: MEROPENEM 1,000 MG in SODIUM CHLORIDE 0.9% 100 ML IV SCH (11:19)
[2017-04-22] MEDS ORDERED: POTASSIUM-SODIUM PHOSPHATE POWDER PACKET PO SCH (12:45)
[2017-04-22] MEDS ORDERED: POTASSIUM PHOS,M-BASIC-D-BASIC 20 MMOL in DEXT 5% WATER 243.3333 ML IV NR (14:30)
[2017-04-22] MEDS ORDERED: LORAZEPAM 2MG/ML CPJ IV NR (21:00)
[2017-04-22] MEDS ORDERED: LORAZEPAM 1MG TABLET PO NR (21:15)
== END 2017-04-22 22:30 | DRG 871 ==
LOC: ER 11:02 → 5EST 12:56 → EDBEDREQ 12:57 → EDBEDREQTM 12:57 → ENRESERV 15:20
PROVIDERS: ADMIT Internal Medicine; ATTEND Internal Medicine
PROC: 02HV33Z Insertion of Infusion Device into Superior Vena Cava, Percutaneous Approach (ICD-10-PCS; principal; 2017-04-17)
PROC: B548ZZA Ultrasonography of Superior Vena Cava, Guidance (ICD-10-PCS; 2017-04-17)
DX: A41.59 Other Gram-negative sepsis (principal); E43 Unspecified severe protein-calorie malnutrition; G93.41 Metabolic encephalopathy; J15.0 Pneumonia due to Klebsiella pneumoniae; I50.33 Acute on chronic diastolic (congestive) heart failure; E87.0 Hyperosmolality and hypernatremia; N17.9 Acute kidney failure, unspecified; N39.0 Urinary tract infection, site not specified; D64.9 Anemia, unspecified; D69.6 Thrombocytopenia, unspecified; E11.9 Type 2 diabetes mellitus without complications; E78.00 Pure hypercholesterolemia, unspecified; E78.5 Hyperlipidemia, unspecified; E83.39 Other disorders of phosphorus metabolism; E83.42 Hypomagnesemia; E86.0 Dehydration; E86.1 Hypovolemia; E87.6 Hypokalemia; F03.90 Unspecified dementia, unspecified severity, without behavioral disturbance, psychotic disturbance, mood disturbance, and anxiety; G40.909 Epilepsy, unspecified, not intractable, without status epilepticus; I11.0 Hypertensive heart disease with heart failure; I25.10 Atherosclerotic heart disease of native coronary artery without angina pectoris; H40.9 Unspecified glaucoma; J44.9 Chronic obstructive pulmonary disease, unspecified; K21.9 Gastro-esophageal reflux disease without esophagitis; R47.02 Dysphasia; Z86.73 Personal history of transient ischemic attack (TIA), and cerebral infarction without residual deficits; Z74.01 Bed confinement status; I25.2 Old myocardial infarction; Z68.31 Body mass index [BMI] 31.0-31.9, adult; Z79.899 Other long term (current) drug therapy
CPT/HCPCS: 36415; 36569; 36600; 51702; 70450; 71010; 74000; 74176; 76700; 76937; 80048; 80053; 80061; 80202; 81001; 82375; 82550; 82553; 82805; 83036; 83605; 83690; 83735; 83880; 84100; 84132; 84295; 84439; 84443; 84484; 85025; 85379; 85610; 87040; 87077; 87086; 87186; 87804; 93005; 93306; 93970; 96365; 96368; 96375; 99291; C1725; C9113; J1650; J1885; J2185; J2543; J3370; J3475; J3480; J3490; J7030; J7040; J7050; J7060; J7070; J7620; Q9963; A4315

== ENCOUNTER 2017-04-25 09:28 | Emergency (ER) | payer MEDICARE, BC ==
[~2017-04-25] VITALS: Ht 167.6 cm; Wt 90.0 kg
[2017-04-25] MEDS ORDERED: DIATR MEGLU/DIATRIZOATE SOLN 120ML ONE (13:51)
[2017-04-25 14:19] VITALS: BP 145/95
== END 2017-04-25 14:05 | disposition home or self-care (01) ==
LOC: ER 09:41
DX: K94.23 Gastrostomy malfunction (principal); F03.90 Unspecified dementia, unspecified severity, without behavioral disturbance, psychotic disturbance, mood disturbance, and anxiety; H40.9 Unspecified glaucoma; K21.9 Gastro-esophageal reflux disease without esophagitis; I10 Essential (primary) hypertension; E78.00 Pure hypercholesterolemia, unspecified; R56.9 Unspecified convulsions; Z79.82 Long term (current) use of aspirin
CPT/HCPCS: 74000; 99283; Q9963

== ENCOUNTER 2017-06-30 12:10 | Inpatient (IN) | payer MEDICARE, BC ==
[~2017-06-30] VITALS: Ht 167.6 cm; Wt 79.4 kg
[~2017-06-30 12:10] MED LIST changes: -MEMA10TA11 GT; +MEMA10TA2 GT
[2017-06-30] MEDS ORDERED: ACETAMINOPHEN 650MG SUPP PR ONE (12:45)
[2017-06-30] MEDS ORDERED: PIPERACILLIN/TAZ 3.375G PREMIX 50 ML IV ONE (12:45)
[2017-06-30] MEDS ORDERED: VANCOMYCIN 1 G PREMIX 200 ML IV ONE (12:45)
[2017-06-30] MEDS ORDERED: SODIUM CHLORIDE 0.9% 1000ML BAG (SEPSIS BOLUS) IV ONE (12:45)
[2017-06-30 13:33] LABS: BASOPHILS % 1.2 % (0.0-2.0); EOSINOPHILS % 0.5 % (0.0-5.0); HEMATOCRIT. 42.8 % (36.0-48.0); HEMOGLOBIN. 13.5 g/dL (12.0-16.0); LYMPHOCYTES % 17.8 % (20.0-50.0); MEAN CORPUSCULAR HEMOGLOBIN 26.5 pg (28.0-32.0); MEAN CORPUSCULAR VOLUME 83.6 fL (81.0-99.0); MONOCYTES % 5.1 % (2.0-8.0); NEUTROPHILS % 75.4 % (40.0-76.0); PLATELET 220 x1000/uL (130-400); RED BLOOD CELL COUNT 5.12 mill/uL (4.2-5.4); RED CELL DISTRIBUTION WIDTH 18.6 % (11.6-14.6)
[2017-06-30 13:38] LABS: PROTHROMBIN TIME 10.5 sec (9.4-11.6)
[2017-06-30 13:46] LABS: CARBON DIOXIDE 35 mEq/L (21-32); CHLORIDE 107 mEq/L (98-107)
[2017-06-30 13:48] LABS: CREATINE KINASE 82 IU/L (26-192); TROPONIN I 0.05 ng/mL (0.00-0.04)
[2017-06-30 14:07] LABS: BG BASE EXCESS 6.9 mmol/L (-2.0-2.0); BG CARBOXYHEMOGLOBIN 1.3 % (0.5-1.5); BG FRACTION INSPIRED OXYGEN 26; BG HCO3 ACT 31.6 mmol/L (22.0-26.0); BG METHEMOGLOBIN 0.3 % (0.0-1.5); BG OXYHEMOGLOBIN 95.4 % (94.0-97.0); BG PCO2 45.5 mmHg (35.0-45.0); BG PO2 92.2 mmHg (75.0-100.0); BG SAMPLE SITE LEFT RADIAL; BG TOTAL HEMOGLOBIN 13.3 g/dL (12.0-18.0); BG VENT MODE NASAL CANNULA
[2017-06-30 14:28] LABS: GLUCOSE URINE NEGATIVE (NEGATIVE); KETONES URINE NEGATIVE (NEGATIVE); LEUKOCYTE ESTERASE URINE 1+ (NEGATIVE); NITRITE URINE NEGATIVE (NEGATIVE); OCCULT BLOOD URINE 2+ (NEGATIVE); PH URINE 6.5 (4.5-8.0); PROTEIN URINE 1+ (NEGATIVE); SPECIFIC GRAVITY URINE 1.019 (1.005-1.030)
[2017-06-30 14:29] LABS: CLARITY URINE CLEAR (CLEAR); COLOR URINE YELLOW (YELLOW)
[2017-06-30] MEDS ORDERED: MORPHINE SULFATE 4 MG/ML CPJ (NOT FOR IM USE) IV PRN (16:30)
[2017-06-30] MEDS ORDERED: NITROGLYCERIN 0.4MG TABLET SL SL PRN (16:30)
[2017-06-30] MEDS ORDERED: DOCUSATE SODIUM 100MG CAPSULE PO PRN (16:30)
[2017-06-30] MEDS ORDERED: PIPERACILLIN/TAZ 3.375G PREMIX 50 ML IV SCH (16:30)
[2017-06-30] MEDS ORDERED: CLONIDINE 0.1MG TABLET PO PRN (16:30)
[2017-06-30] MEDS ORDERED: VANCOMYCIN 1 G PREMIX 200 ML IV SCH (16:30)
[2017-06-30] MEDS ORDERED: DIPHENHYDRAMINE 50MG/ML VIAL IV PRN (16:30)
[2017-06-30] MEDS ORDERED: GUAIFENESIN 200MG/10ML SUGAR FREE UDC PO PRN (16:30)
[2017-06-30] MEDS ORDERED: TRAMADOL 50MG TABLET PO PRN (16:30)
[2017-06-30] MEDS ORDERED: ZOLPIDEM TARTRATE 5MG TABLET PO PRN (16:30)
[2017-06-30] MEDS ORDERED: NA PHOS,M-B/NA PHOS,DI-BA ENEMA 118ML PR PRN (16:30)
[2017-06-30] MEDS ORDERED: MAGNESIUM/ALUMINUM HYDROXIDE/SIMETHICONE 30ML UDC PO PRN (16:30)
[2017-06-30] MEDS ORDERED: ONDANSETRON HCL 4MG/2ML VIAL IV PRN (16:30)
[2017-06-30] MEDS ORDERED: IPRATROPIUM/ALBUTEROL 0.5-3(2.5)MG/3ML NEB INH PRN (16:30)
[2017-06-30] MEDS ORDERED: DEXTROSE 50% WATER 50ML SYRINGE IV PRN (17:45)
[2017-06-30] MEDS: INSULIN LISPRO 100 UNITS/ML SUBCUT SCH ×2 (18:20→21:00)
[2017-06-30 20:00] VITALS: BP 179/100
[2017-06-30] MEDS ORDERED: METOPROLOL TARTRATE 25MG TABLET PO SCH (21:00)
[2017-06-30] MEDS ORDERED: LEVETIRACETAM 500MG TABLET PO SCH (21:00)
[2017-06-30] MEDS: GUAIFENESIN/DM 600MG/30MG ER TAB 12HR PO SCH (21:28)
[2017-06-30] MEDS: BLOOD SUGAR DIAGNOSTIC STRIP TEST SCH (21:33)
[2017-06-30 22:00] VITALS: BP_SYST 145; BP_SYST 171; BP_DIAS 100; BP_DIAS 103
[2017-06-30] MEDS ORDERED: VANCOMYCIN 750 MG PREMIX 150 ML IV NR (22:00)
[2017-06-30] MEDS: DEXT 5%/0.45% NACL KCL 20MEQ/L 1,000 ML IV SCH (23:06)
[2017-07-01] VITALS (15 sets, daily range): BP systolic 114–168; BP diastolic 62–104
[2017-07-01] MEDS: PIPERACILLIN/TAZ 3.375G PREMIX 50 ML IV SCH ×4 (00:29→17:05)
[2017-07-01 01:09] LABS: CREATINE KINASE MB FRACTION 1.8 ng/mL (0.5-3.6); TROPONIN I 0.03 ng/mL (0.00-0.04)
[2017-07-01] MEDS: BLOOD SUGAR DIAGNOSTIC STRIP TEST SCH ×3 (07:26→17:02)
[2017-07-01 07:58] LABS: BASOPHILS % 0.7 % (0.0-2.0); EOSINOPHILS % 1.2 % (0.0-5.0); HEMATOCRIT. 36.9 % (36.0-48.0); HEMOGLOBIN. 11.7 g/dL (12.0-16.0); LYMPHOCYTES % 13.9 % (20.0-50.0); MEAN CORPUSCULAR HEMOGLOBIN 26.5 pg (28.0-32.0); MEAN CORPUSCULAR VOLUME 83.7 fL (81.0-99.0); NEUTROPHILS % 79.2 % (40.0-76.0); PLATELET 165 x1000/uL (130-400); RED BLOOD CELL COUNT 4.41 mill/uL (4.2-5.4); RED CELL DISTRIBUTION WIDTH 19.1 % (11.6-14.6)
[2017-07-01] MEDS: INSULIN LISPRO 100 UNITS/ML SUBCUT SCH ×3 (08:00→17:08)
[2017-07-01] MEDS: GUAIFENESIN/DM 600MG/30MG ER TAB 12HR PO SCH ×2 (08:51→21:01)
[2017-07-01] MEDS: ASPIRIN 325MG TABLET PO SCH (08:58)
[2017-07-01] MEDS: ZINC SULFATE 220 MG ( 50 ) CAPSULE GT SCH (08:58)
[2017-07-01] MEDS: LEVETIRACETAM 500MG/5ML CUP GT SCH ×2 (08:58→20:59)
[2017-07-01] MEDS: FAMOTIDINE 20MG/2ML VIAL IV SCH (08:59)
[2017-07-01] MEDS: ENOXAPARIN 40MG/0.4ML SYR SUBCUT SCH (08:59)
[2017-07-01] MEDS: METOPROLOL TARTRATE 25MG TABLET GT SCH ×2 (08:59→21:01)
[2017-07-01] MEDS ORDERED: ZINC SULFATE 220 MG ( 50 ) CAPSULE PO SCH (09:00)
[2017-07-01] MEDS ORDERED: MAGNESIUM/ALUMINUM HYDROXIDE/SIMETHICONE 30ML UDC GT PRN (09:00)
[2017-07-01] MEDS ORDERED: ASPIRIN 325MG EC TABLET PO SCH (09:00)
[2017-07-01 09:22] LABS: CARBON DIOXIDE 31 mEq/L (21-32); CHLORIDE 112 mEq/L (98-107); CREATINE KINASE 93 IU/L (26-192); TROPONIN I 0.02 ng/mL (0.00-0.04)
[2017-07-01] MEDS ORDERED: TRAMADOL 50MG TABLET GT PRN (10:30)
[2017-07-01] MEDS ORDERED: POTASSIUM CHLORIDE 20MEQ/PACKET PO SCH (11:00)
[2017-07-01] MEDS: DEXT 5%/0.45% NACL KCL 20MEQ/L 1,000 ML IV SCH ×2 (11:20→22:43)
[2017-07-01] MEDS ORDERED: GUAIFENESIN 200MG/10ML SUGAR FREE UDC GT PRN (12:30)
[2017-07-01] MEDS: VANCOMYCIN 1 G PREMIX 200 ML IV SCH (17:42)
[2017-07-01] MEDS ORDERED: ZOLPIDEM TARTRATE 5MG TABLET GT PRN (21:00)
[2017-07-02] VITALS (10 sets, daily range): BP systolic 121–164; BP diastolic 68–100
[2017-07-02] MEDS: PIPERACILLIN/TAZ 3.375G PREMIX 50 ML IV SCH ×2 (00:15→06:38)
[2017-07-02] MEDS: INSULIN LISPRO 100 UNITS/ML SUBCUT SCH ×4 (06:00→17:56)
[2017-07-02] MEDS: BLOOD SUGAR DIAGNOSTIC STRIP TEST SCH ×4 (06:48→17:50)
[2017-07-02] MEDS: CLONIDINE 0.1MG TABLET GT PRN ×2 (07:15→16:43)
[2017-07-02] MEDS: ASPIRIN 325MG TABLET PO SCH (08:31)
[2017-07-02] MEDS: LEVETIRACETAM 500MG/5ML CUP GT SCH ×2 (08:31→20:49)
[2017-07-02] MEDS: GUAIFENESIN/DM 600MG/30MG ER TAB 12HR PO SCH ×2 (08:32→20:49)
[2017-07-02] MEDS: METOPROLOL TARTRATE 25MG TABLET GT SCH ×2 (08:32→20:49)
[2017-07-02] MEDS: ZINC SULFATE 220 MG ( 50 ) CAPSULE GT SCH (08:32)
[2017-07-02] MEDS: ENOXAPARIN 40MG/0.4ML SYR SUBCUT SCH (08:33)
[2017-07-02] MEDS: FAMOTIDINE 20MG/2ML VIAL IV SCH (08:33)
[2017-07-02] MEDS: VANCOMYCIN 1 G PREMIX 200 ML IV SCH (15:14)
[2017-07-02] MEDS: DEXT 5%/0.45% NACL KCL 20MEQ/L 1,000 ML IV SCH (15:26)
[2017-07-02] MEDS: MEROPENEM 1000MG in NORMAL SALINE 100ML IV SCH (16:35)
[2017-07-03] VITALS (12 sets, daily range): BP systolic 125–168; BP diastolic 68–92
[2017-07-03] MEDS: DEXT 5%/0.45% NACL KCL 20MEQ/L 1,000 ML IV SCH ×2 (03:24→16:47)
[2017-07-03] MEDS: MEROPENEM 1000MG in NORMAL SALINE 100ML IV SCH ×2 (04:44→16:47)
[2017-07-03] MEDS: INSULIN LISPRO 100 UNITS/ML SUBCUT SCH ×4 (05:22→17:17)
[2017-07-03] MEDS: BLOOD SUGAR DIAGNOSTIC STRIP TEST SCH ×5 (05:22→23:59)
[2017-07-03] MEDS: VANCOMYCIN 1 G PREMIX 200 ML IV SCH (06:04)
[2017-07-03] MEDS: FAMOTIDINE 20MG/2ML VIAL IV SCH (08:35)
[2017-07-03] MEDS: ENOXAPARIN 40MG/0.4ML SYR SUBCUT SCH (08:36)
[2017-07-03] MEDS: ZINC SULFATE 220 MG ( 50 ) CAPSULE GT SCH (08:36)
[2017-07-03] MEDS: LEVETIRACETAM 500MG/5ML CUP GT SCH ×2 (08:36→20:11)
[2017-07-03] MEDS: ASPIRIN 325MG TABLET PO SCH (08:36)
[2017-07-03] MEDS: METOPROLOL TARTRATE 25MG TABLET GT SCH ×2 (08:37→20:12)
[2017-07-03] MEDS: GUAIFENESIN/DM 600MG/30MG ER TAB 12HR PO SCH ×2 (08:37→20:12)
[2017-07-03] MEDS: CLONIDINE 0.1MG TABLET GT PRN (14:47)
[2017-07-04] VITALS (12 sets, daily range): BP systolic 131–184; BP diastolic 74–104
[2017-07-04] MEDS: VANCOMYCIN 1 G PREMIX 200 ML IV SCH (00:01)
[2017-07-04] MEDS: CLONIDINE 0.1MG TABLET GT PRN ×3 (00:20→17:32)
[2017-07-04] MEDS: MEROPENEM 1000MG in NORMAL SALINE 100ML IV SCH ×2 (03:07→16:23)
[2017-07-04] MEDS: BLOOD SUGAR DIAGNOSTIC STRIP TEST SCH ×2 (05:23→12:00)
[2017-07-04] MEDS: INSULIN LISPRO 100 UNITS/ML SUBCUT SCH ×3 (05:23→12:00)
[2017-07-04] MEDS: DEXT 5%/0.45% NACL KCL 20MEQ/L 1,000 ML IV SCH (06:50)
[2017-07-04] MEDS: FAMOTIDINE 20MG/2ML VIAL IV SCH (08:45)
[2017-07-04] MEDS: ZINC SULFATE 220 MG ( 50 ) CAPSULE GT SCH (08:45)
[2017-07-04] MEDS: ASPIRIN 325MG TABLET PO SCH (08:45)
[2017-07-04] MEDS: METOPROLOL TARTRATE 25MG TABLET GT SCH (08:45)
[2017-07-04] MEDS: LEVETIRACETAM 500MG/5ML CUP GT SCH (08:45)
[2017-07-04] MEDS: GUAIFENESIN/DM 600MG/30MG ER TAB 12HR PO SCH (08:45)
[2017-07-04] MEDS: ENOXAPARIN 40MG/0.4ML SYR SUBCUT SCH (08:46)
[2017-07-04 11:10] LABS: EOSINOPHILS % 1.6 % (0.0-5.0); HEMATOCRIT. 35.5 % (36.0-48.0); HEMOGLOBIN. 11.4 g/dL (12.0-16.0); LYMPHOCYTES % 19.1 % (20.0-50.0); MEAN CORPUSCULAR HEMOGLOBIN 26.6 pg (28.0-32.0); MEAN PLATELET VOLUME 9.3 fl (7.4-10.4); NEUTROPHILS % 73.3 % (40.0-76.0); PLATELET 124 x1000/uL (130-400); RED BLOOD CELL COUNT 4.28 mill/uL (4.2-5.4); RED CELL DISTRIBUTION WIDTH 18.8 % (11.6-14.6)
[2017-07-04 11:32] LABS: CARBON DIOXIDE 32 mEq/L (21-32); CHLORIDE 108 mEq/L (98-107)
[2017-07-04] MEDS ORDERED: POTASSIUM CHLORIDE 20MEQ/PACKET PO SCH (13:15)
[2017-07-04] MEDS ORDERED: DEXT 5%/0.45% NACL KCL 40MEQ/L 1,000 ML IV SCH (14:00)
[2017-07-04] MEDS ORDERED: VANCOMYCIN 1 G PREMIX 200 ML IV SCH (17:00)
== END 2017-07-04 18:00 | DRG 871 ==
LOC: ER 12:17 → ENRESERV 15:16 → CANRESERV 15:16 → 5EST 15:28 → EDBEDREQTM 15:31 → EDBEDREQ 15:31 → SUPCPDRO 16:27 → ENRESERV 18:03
PROVIDERS: ADMIT Internal Medicine; ATTEND Internal Medicine
PROC: 05HA33Z Insertion of Infusion Device into Left Brachial Vein, Percutaneous Approach (ICD-10-PCS; principal; 2017-07-02)
PROC: B54NZZA Ultrasonography of Left Upper Extremity Veins, Guidance (ICD-10-PCS; 2017-07-02)
DX: A41.9 Sepsis, unspecified organism (principal); J18.9 Pneumonia, unspecified organism; J96.00 Acute respiratory failure, unspecified whether with hypoxia or hypercapnia; G92 Toxic encephalopathy; E87.0 Hyperosmolality and hypernatremia; N39.0 Urinary tract infection, site not specified; E44.0 Moderate protein-calorie malnutrition; I11.9 Hypertensive heart disease without heart failure; F03.90 Unspecified dementia, unspecified severity, without behavioral disturbance, psychotic disturbance, mood disturbance, and anxiety; E11.9 Type 2 diabetes mellitus without complications; B96.20 Unspecified Escherichia coli [E. coli] as the cause of diseases classified elsewhere; E87.1 Hypo-osmolality and hyponatremia; Y95 Nosocomial condition; E87.6 Hypokalemia; G40.909 Epilepsy, unspecified, not intractable, without status epilepticus; Z74.01 Bed confinement status; Z79.4 Long term (current) use of insulin; Z79.899 Other long term (current) drug therapy
CPT/HCPCS: 36415; 36569; 36600; 51702; 70450; 71010; 76937; 80053; 80061; 80202; 81001; 82375; 82550; 82553; 82805; 82962; 83036; 83605; 83880; 84132; 84484; 85025; 85610; 87040; 87077; 87086; 87186; 93005; 93306; 93970; 96361; 96365; 96367; 99285; C1725; J1650; J2185; J2543; J3370; J3490; J7030; J7050; A4315

== ENCOUNTER 2017-07-08 05:46 | Inpatient (IN) | payer MEDICARE, BC ==
[~2017-07-08] VITALS: Ht 165.1 cm; Wt 80.3 kg
[2017-07-08] VITALS (58 sets, daily range): BP systolic 67–129; BP diastolic 44–79
[2017-07-08] MEDS ORDERED: PIPERACILLIN/TAZ 3.375G PREMIX 50 ML IV ONE (06:15)
[2017-07-08] MEDS ORDERED: VANCOMYCIN 1 G PREMIX 200 ML IV ONE (06:15)
[2017-07-08] MEDS ORDERED: SUCCINYLCHOLINE CHLORIDE 200MG/10ML VIAL IV ONE ×2 (06:15→09:05)
[2017-07-08] MEDS ORDERED: PROPOFOL 10MG/ML 100ML 100 ML IV ONE (06:15)
[2017-07-08] MEDS ORDERED: ETOMIDATE 2MG/ML 10ML VIAL IV ONE ×2 (06:15→09:05)
[2017-07-08] MEDS ORDERED: SODIUM CHLORIDE 0.9% 1000ML BAG (SEPSIS BOLUS) IV ONE (06:15)
[2017-07-08 07:03] LABS: BG BASE EXCESS 3.8 mmol/L (-2.0-2.0); BG CARBOXYHEMOGLOBIN 0.4 % (0.5-1.5); BG DEOXYHEMOGLOBIN 1.3 % (0.0-5.0); BG FRACTION INSPIRED OXYGEN 50; BG HCO3 ACT 25.9 mmol/L (22.0-26.0); BG METHEMOGLOBIN 0.3 % (0.0-1.5); BG OXYGEN SATURATION 98.7 % (92.0-98.5); BG PCO2 31.3 mmHg (35.0-45.0); BG PH 7.535 (7.350-7.450); BG PO2 139.1 mmHg (75.0-100.0); BG SAMPLE SITE RIGHT BRACHIAL; BG TIDAL VOLUME(mL) 550 mL; BG TOTAL HEMOGLOBIN 13.8 g/dL (12.0-18.0); BG VENT MODE VENT - A/C; BG VENT RATE 12 set
[2017-07-08 07:14] LABS: BASOPHILS % 0.7 % (0.0-2.0); EOSINOPHILS % 0.1 % (0.0-5.0); LYMPHOCYTES % 15.5 % (20.0-50.0); MEAN CORPUSCULAR HEMOGLOBIN 26.4 pg (28.0-32.0); MEAN CORPUSCULAR VOLUME 83.7 fL (81.0-99.0); MEAN PLATELET VOLUME 9.4 fl (7.4-10.4); MONOCYTES % 8.7 % (2.0-8.0); PLATELET 168 x1000/uL (130-400); RED BLOOD CELL COUNT 4.53 mill/uL (4.2-5.4)
[2017-07-08 07:26] LABS: INR 1.1; PROTHROMBIN TIME 11.5 sec (9.4-11.6)
[2017-07-08 07:38] LABS: CARBON DIOXIDE 30 mEq/L (21-32); CHLORIDE 110 mEq/L (98-107)
[2017-07-08] MEDS ORDERED: PROPOFOL 10MG/ML 100ML 100 ML IV PRN (10:45)
[2017-07-08] MEDS ORDERED: ALBUTEROL (0.5%) 2.5MG/0.5ML NEB HHN PRN (10:45)
[2017-07-08] MEDS ORDERED: NOREPINEPHRINE 8 MG in DEXT 5% WATER 242 ML IV PRN (10:45)
[2017-07-08] MEDS ORDERED: KCL 20MEQ/100ML PREMIX 100 ML IV NR (12:00)
[2017-07-08 12:03] LABS: CLARITY URINE CLOUDY (CLEAR); COLOR URINE DARK YELLOW (YELLOW); GLUCOSE URINE NEGATIVE (NEGATIVE); KETONES URINE TRACE (NEGATIVE); LEUKOCYTE ESTERASE URINE TRACE (NEGATIVE); NITRITE URINE NEGATIVE (NEGATIVE); OCCULT BLOOD URINE 2+ (NEGATIVE); PROTEIN URINE 1+ (NEGATIVE); SPECIFIC GRAVITY URINE 1.035 (1.005-1.030)
[2017-07-08] MEDS: IPRATROPIUM/ALBUTEROL 0.5-3(2.5)MG/3ML NEB HHN SCH ×3 (12:19→20:27)
[2017-07-08] MEDS: DEXT 5%/0.45% NACL KCL 20MEQ/L 1,000 ML IV SCH (12:30)
[2017-07-08] MEDS ORDERED: VANCOMYCIN 500 MG PREMIX 100 ML IV SCH (13:00)
[2017-07-08] MEDS: ENOXAPARIN 60MG/0.6ML SYR SUBCUT SCH (13:59)
[2017-07-08] MEDS: PIPERACILLIN/TAZ 3.375G PREMIX 50 ML IV SCH ×2 (15:33→23:53)
[2017-07-08 16:00] LABS: CREATINE KINASE MB FRACTION 1.7 ng/mL (0.5-3.6); TROPONIN I 0.28 ng/mL (0.00-0.04)
[2017-07-08] MEDS ORDERED: HYDROCODONE/ACETAMINOPHEN 5/325MG TABLET PO PRN (18:45)
[2017-07-08] MEDS ORDERED: ONDANSETRON HCL 4MG/2ML VIAL IV PRN (18:45)
[2017-07-08] MEDS ORDERED: LORAZEPAM 2MG/ML CPJ IV PRN (19:15)
[2017-07-08] MEDS: ACETAMINOPHEN 650MG/20.3ML UDC PEG PRN (20:35)
[2017-07-08] MEDS ORDERED: PANTOPRAZOLE SODIUM 40 MG/VIAL IV NR (20:45)
[2017-07-08] MEDS ORDERED: LEVETIRACETAM 500 MG in SODIUM CHLORIDE 0.9% 100 ML IV NR (21:00)
[2017-07-08] MEDS ORDERED: LEVETIRACETAM 500 MG in SODIUM CHLORIDE 0.9% 100 ML IV SCH (21:00)
[2017-07-08] MEDS ORDERED: ENOXAPARIN 40MG/0.4ML SYR SUBCUT SCH (21:00)
[2017-07-08] MEDS ORDERED: INSULIN LISPRO 100 UNITS/ML SUBCUT SCH (21:00)
[2017-07-08] MEDS ORDERED: SODIUM CHLORIDE 0.45% 1,000 ML IV SCH (23:00)
[2017-07-08 23:38] LABS: CREATINE KINASE MB FRACTION 0.9 ng/mL (0.5-3.6); TROPONIN I 0.15 ng/mL (0.00-0.04)
[2017-07-09] VITALS (90 sets, daily range): BP systolic 90–158; BP diastolic 51–91
[2017-07-09] MEDS: BLOOD SUGAR DIAGNOSTIC STRIP TEST SCH ×5 (00:01→23:13)
[2017-07-09] MEDS: INSULIN LISPRO 100 UNITS/ML SUBCUT SCH ×5 (00:03→23:13)
[2017-07-09] MEDS: DEXT 5%/0.45% NACL KCL 20MEQ/L 1,000 ML IV SCH ×2 (00:42→14:07)
[2017-07-09] MEDS: ENOXAPARIN 60MG/0.6ML SYR SUBCUT SCH (00:43)
[2017-07-09 05:46] LABS: BASOPHILS % 0.8 % (0.0-2.0); HEMATOCRIT. 31.9 % (36.0-48.0); HEMOGLOBIN. 10.1 g/dL (12.0-16.0); LYMPHOCYTES % 22.5 % (20.0-50.0); MEAN CORPUSCULAR HEMOGLOBIN 26.6 pg (28.0-32.0); MEAN CORPUSCULAR VOLUME 83.9 fL (81.0-99.0); MEAN PLATELET VOLUME 10.7 fl (7.4-10.4); MONOCYTES % 8.7 % (2.0-8.0); PLATELET 125 x1000/uL (130-400)
[2017-07-09] MEDS ORDERED: VANCOMYCIN 750 MG PREMIX 150 ML IV SCH (06:00)
[2017-07-09 06:11] LABS: CARBON DIOXIDE 28 mEq/L (21-32); CHLORIDE 107 mEq/L (98-107)
[2017-07-09 06:18] LABS: CREATINE KINASE 156 IU/L (26-192); CREATINE KINASE MB FRACTION 0.7 ng/mL (0.5-3.6); TROPONIN I 0.09 ng/mL (0.00-0.04)
[2017-07-09 06:37] LABS: CLARITY URINE CLOUDY (CLEAR); COLOR URINE DARK YELLOW (YELLOW); GLUCOSE URINE NEGATIVE (NEGATIVE); KETONES URINE TRACE (NEGATIVE); LEUKOCYTE ESTERASE URINE NEGATIVE (NEGATIVE); NITRITE URINE NEGATIVE (NEGATIVE); OCCULT BLOOD URINE NEGATIVE (NEGATIVE); PROTEIN URINE 1+ (NEGATIVE); SPECIFIC GRAVITY URINE 1.036 (1.005-1.030)
[2017-07-09 07:19] LABS: *AMPHETAMINES SCREEN URINE NEGATIVE (NEGATIVE); *BARBITURATES SCREEN URINE NEGATIVE (NEGATIVE); *BENZODIAZEPINES SCREEN URINE PRESUMTIVE POSITIVE (NEGATIVE); *COCAINE SCREEN URINE NEGATIVE (NEGATIVE); CANNABINOID URINE SCREEN NEGATIVE (NEGATIVE); METHADONE URINE SCREEN NEGATIVE (NEGATIVE); OPIATES URINE SCREEN NEGATIVE (NEGATIVE); PHENCYCLIDINE URINE SCREEN NEGATIVE (NEGATIVE)
[2017-07-09] MEDS: PIPERACILLIN/TAZ 3.375G PREMIX 50 ML IV SCH ×3 (08:26→23:58)
[2017-07-09] MEDS: FOLIC ACID 1MG TABLET PO SCH (08:26)
[2017-07-09] MEDS: LEVETIRACETAM 500MG/5ML CUP PO SCH ×2 (08:26→21:08)
[2017-07-09] MEDS: PANTOPRAZOLE SODIUM 40 MG/VIAL IV SCH (08:26)
[2017-07-09] MEDS: IPRATROPIUM/ALBUTEROL 0.5-3(2.5)MG/3ML NEB HHN SCH ×4 (08:33→19:49)
[2017-07-09] MEDS ORDERED: LORAZEPAM 2MG/ML CPJ IV PRN (11:45)
[2017-07-09] MEDS ORDERED: MORPHINE SULFATE 4 MG/ML CPJ (NOT FOR IM USE) IV PRN ×2 (11:45)
[2017-07-09] MEDS: DEXTROSE 50% WATER 50ML SYRINGE IV PRN ×2 (12:20→18:13)
[2017-07-09 12:27] LABS: BG CARBOXYHEMOGLOBIN 0.3 % (0.5-1.5); BG DEOXYHEMOGLOBIN 1.1 % (0.0-5.0); BG FRACTION INSPIRED OXYGEN 55; BG HCO3 ACT 26.8 mmol/L (22.0-26.0); BG METHEMOGLOBIN 0.5 % (0.0-1.5); BG OXYGEN SATURATION 98.9 % (92.0-98.5); BG OXYHEMOGLOBIN 98.1 % (94.0-97.0); BG PCO2 37.6 mmHg (35.0-45.0); BG PO2 204.9 mmHg (75.0-100.0); BG SAMPLE SITE RIGHT BRACHIAL; BG TIDAL VOLUME(mL) 550 mL; BG TOTAL HEMOGLOBIN 10.6 g/dL (12.0-18.0); BG VENT MODE VENT - A/C; BG VENT RATE 8 set
[2017-07-09] MEDS ORDERED: POTASSIUM CHLORIDE 20MEQ/PACKET PO NR (18:00)
[2017-07-09] MEDS ORDERED: PROPOFOL 10MG/ML 100ML 100 ML IV PRN (18:00)
[2017-07-09] MEDS: ACETAMINOPHEN 650MG/20.3ML UDC PEG PRN (19:47)
[2017-07-09] MEDS ORDERED: DEXTROSE 5% WATER 1,000 ML IV SCH (20:00)
[2017-07-09] MEDS: VANCOMYCIN 1 G PREMIX 200 ML IV SCH (21:08)
[2017-07-09] MEDS: ENOXAPARIN 40MG/0.4ML SYR SUBCUT SCH (21:09)
[2017-07-10] VITALS (45 sets, daily range): BP systolic 90–156; BP diastolic 39–99
[2017-07-10] MEDS: INSULIN LISPRO 100 UNITS/ML SUBCUT SCH ×3 (06:00→18:00)
[2017-07-10] MEDS: DEXTROSE 50% WATER 50ML SYRINGE IV PRN ×3 (06:12→18:43)
[2017-07-10] MEDS: BLOOD SUGAR DIAGNOSTIC STRIP TEST SCH ×3 (06:15→18:00)
[2017-07-10] MEDS ORDERED: DEXT 10% WATER 1,000 ML IV ONE (07:15)
[2017-07-10 08:03] LABS: BG BASE EXCESS 3.9 mmol/L (-2.0-2.0); BG CARBOXYHEMOGLOBIN 0.2 % (0.5-1.5); BG HCO3 ACT 27.5 mmol/L (22.0-26.0); BG METHEMOGLOBIN 0.3 % (0.0-1.5); BG OXYHEMOGLOBIN 97.5 % (94.0-97.0); BG PCO2 37.5 mmHg (35.0-45.0); BG PH 7.483 (7.350-7.450); BG PO2 117.7 mmHg (75.0-100.0); BG SAMPLE SITE RIGHT RADIAL; BG TIDAL VOLUME(mL) 500 mL; BG TOTAL HEMOGLOBIN 9.9 g/dL (12.0-18.0); BG VENT MODE VENT - A/C; BG VENT RATE 8 set
[2017-07-10] MEDS: IPRATROPIUM/ALBUTEROL 0.5-3(2.5)MG/3ML NEB HHN SCH ×4 (08:04→20:20)
[2017-07-10] MEDS: PIPERACILLIN/TAZ 3.375G PREMIX 50 ML IV SCH ×2 (08:31→16:48)
[2017-07-10] MEDS: VANCOMYCIN 1 G PREMIX 200 ML IV SCH ×2 (08:50→21:27)
[2017-07-10] MEDS: PANTOPRAZOLE SODIUM 40 MG/VIAL IV SCH (08:50)
[2017-07-10] MEDS: LEVETIRACETAM 500MG/5ML CUP PO SCH ×2 (08:50→21:26)
[2017-07-10] MEDS: FOLIC ACID 1MG TABLET PO SCH (08:50)
[2017-07-10 08:51] LABS: CARBON DIOXIDE 26 mEq/L (21-32); CHLORIDE 105 mEq/L (98-107)
[2017-07-10 08:56] LABS: BASOPHILS % 0.9 % (0.0-2.0); EOSINOPHILS % 2.7 % (0.0-5.0); HEMATOCRIT. 30.7 % (36.0-48.0); HEMOGLOBIN. 9.7 g/dL (12.0-16.0); LYMPHOCYTES % 18.3 % (20.0-50.0); MEAN CORPUSCULAR HEMOGLOBIN 26.6 pg (28.0-32.0); MEAN CORPUSCULAR VOLUME 84.8 fL (81.0-99.0); MEAN PLATELET VOLUME 10.6 fl (7.4-10.4); MONOCYTES % 5.7 % (2.0-8.0); NEUTROPHILS % 72.4 % (40.0-76.0); PLATELET 125 x1000/uL (130-400); RED BLOOD CELL COUNT 3.62 mill/uL (4.2-5.4); RED CELL DISTRIBUTION WIDTH 19.3 % (11.6-14.6)
[2017-07-10] MEDS ORDERED: FENTANYL CITRATE/PF 500 MCG in SODIUM CHLORIDE 0.9% 40 ML IV PRN (09:30)
[2017-07-10] MEDS ORDERED: MIDAZOLAM HCL 100 MG in DEXT 5% WATER 80 ML IV PRN (09:30)
[2017-07-10] MEDS ORDERED: PHENYTOIN SODIUM 500 MG in SODIUM CHLORIDE 0.9% 50 ML IV SCH (10:00)
[2017-07-10] MEDS: PHENYTOIN SODIUM 100MG/2ML VIAL IV SCH ×2 (14:20→21:27)
[2017-07-10] MEDS: THIAMINE HCL 100MG TABLET PO SCH (14:20)
[2017-07-10] MEDS: ENOXAPARIN 40MG/0.4ML SYR SUBCUT SCH (21:27)
[2017-07-11] VITALS (43 sets, daily range): BP systolic 92–170; BP diastolic 52–95
[2017-07-11] MEDS: PIPERACILLIN/TAZ 3.375G PREMIX 50 ML IV SCH ×4 (00:25→21:58)
[2017-07-11] MEDS: BLOOD SUGAR DIAGNOSTIC STRIP TEST SCH ×3 (05:26→11:57)
[2017-07-11] MEDS: PHENYTOIN SODIUM 100MG/2ML VIAL IV SCH ×3 (05:35→21:57)
[2017-07-11] MEDS: DEXTROSE 50% WATER 50ML SYRINGE IV PRN ×2 (05:35→12:06)
[2017-07-11] MEDS: INSULIN LISPRO 100 UNITS/ML SUBCUT SCH ×4 (05:36→12:00)
[2017-07-11 06:09] LABS: CARBON DIOXIDE 28 mEq/L (21-32); CHLORIDE 108 mEq/L (98-107)
[2017-07-11] MEDS: PANTOPRAZOLE SODIUM 40 MG/VIAL IV SCH (08:19)
[2017-07-11] MEDS: FOLIC ACID 1MG TABLET PO SCH (08:20)
[2017-07-11] MEDS: LEVETIRACETAM 500MG/5ML CUP PO SCH ×2 (08:20→21:57)
[2017-07-11] MEDS: THIAMINE HCL 100MG TABLET PO SCH (08:20)
[2017-07-11] MEDS: POTASSIUM CHLORIDE 20MEQ TABLET SR PO SCH ×3 (08:20→16:41)
[2017-07-11 08:24] LABS: BG BASE EXCESS 4.1 mmol/L (-2.0-2.0); BG CARBOXYHEMOGLOBIN 0.3 % (0.5-1.5); BG DEOXYHEMOGLOBIN 1.4 % (0.0-5.0); BG FRACTION INSPIRED OXYGEN 40; BG HCO3 ACT 27.9 mmol/L (22.0-26.0); BG METHEMOGLOBIN 0.1 % (0.0-1.5); BG OXYGEN SATURATION 98.6 % (92.0-98.5); BG OXYHEMOGLOBIN 98.2 % (94.0-97.0); BG PCO2 38.4 mmHg (35.0-45.0); BG PH 7.479 (7.350-7.450); BG PO2 146.6 mmHg (75.0-100.0); BG SAMPLE SITE RIGHT RADIAL; BG TIDAL VOLUME(mL) 500 mL; BG TOTAL HEMOGLOBIN 9.2 g/dL (12.0-18.0); BG VENT MODE VENT - A/C; BG VENT RATE 8 set
[2017-07-11] MEDS: IPRATROPIUM/ALBUTEROL 0.5-3(2.5)MG/3ML NEB HHN SCH ×4 (08:49→20:55)
[2017-07-11] MEDS: VANCOMYCIN 1 G PREMIX 200 ML IV SCH (09:05)
[2017-07-11] MEDS: ACETYLCYSTEINE 100MG/ML 10% VIAL 4ML INH SCH ×3 (12:00→20:56)
[2017-07-11] MEDS: VANCOMYCIN 750 MG PREMIX 150 ML IV SCH (21:58)
[2017-07-11] MEDS: ENOXAPARIN 40MG/0.4ML SYR SUBCUT SCH (21:58)
[2017-07-12] VITALS (39 sets, daily range): BP systolic 113–161; BP diastolic 62–121
[2017-07-12] MEDS: ACETYLCYSTEINE 100MG/ML 10% VIAL 4ML INH SCH ×5 (00:45→20:27)
[2017-07-12] MEDS: IPRATROPIUM/ALBUTEROL 0.5-3(2.5)MG/3ML NEB HHN SCH ×4 (00:46→20:27)
[2017-07-12] MEDS: INSULIN LISPRO 100 UNITS/ML SUBCUT SCH ×6 (03:03→23:28)
[2017-07-12] MEDS: PIPERACILLIN/TAZ 3.375G PREMIX 50 ML IV SCH ×4 (04:00→22:07)
[2017-07-12] MEDS: ALBUTEROL (0.083%) 2.5MG/3ML NEB HHN PRN (04:47)
[2017-07-12] MEDS: BLOOD SUGAR DIAGNOSTIC STRIP TEST SCH ×5 (05:48→23:28)
[2017-07-12] MEDS: PHENYTOIN SODIUM 100MG/2ML VIAL IV SCH ×3 (05:48→22:07)
[2017-07-12] MEDS: POTASSIUM CHLORIDE 20MEQ TABLET SR PO SCH ×2 (09:07→13:39)
[2017-07-12] MEDS: THIAMINE HCL 100MG TABLET PO SCH (09:07)
[2017-07-12] MEDS: PANTOPRAZOLE SODIUM 40 MG/VIAL IV SCH (09:07)
[2017-07-12] MEDS: VANCOMYCIN 750 MG PREMIX 150 ML IV SCH ×2 (09:07→20:25)
[2017-07-12] MEDS: FOLIC ACID 1MG TABLET PO SCH (09:07)
[2017-07-12] MEDS: LEVETIRACETAM 500MG/5ML CUP PO SCH ×2 (09:08→20:25)
[2017-07-12] MEDS: CLONIDINE 0.1MG TABLET GT PRN (13:39)
[2017-07-12] MEDS: ENOXAPARIN 40MG/0.4ML SYR SUBCUT SCH (20:26)
[2017-07-13] VITALS (35 sets, daily range): BP systolic 123–169; BP diastolic 70–93
[2017-07-13] MEDS: ACETYLCYSTEINE 100MG/ML 10% VIAL 4ML INH SCH ×7 (00:11→20:12)
[2017-07-13] MEDS: ALBUTEROL (0.083%) 2.5MG/3ML NEB HHN PRN ×2 (00:11→04:22)
[2017-07-13] MEDS: PIPERACILLIN/TAZ 3.375G PREMIX 50 ML IV SCH ×4 (03:38→22:06)
[2017-07-13 05:55] LABS: BASOPHILS % 0.5 % (0.0-2.0); EOSINOPHILS % 1.5 % (0.0-5.0); HEMATOCRIT. 27.1 % (36.0-48.0); HEMOGLOBIN. 8.5 g/dL (12.0-16.0); LYMPHOCYTES % 13.3 % (20.0-50.0); MEAN CORPUSCULAR HEMOGLOBIN 26.7 pg (28.0-32.0); MEAN CORPUSCULAR VOLUME 84.6 fL (81.0-99.0); MEAN PLATELET VOLUME 10.1 fl (7.4-10.4); NEUTROPHILS % 78.7 % (40.0-76.0); PLATELET 162 x1000/uL (130-400); RED CELL DISTRIBUTION WIDTH 19.5 % (11.6-14.6)
[2017-07-13] MEDS: INSULIN LISPRO 100 UNITS/ML SUBCUT SCH ×3 (06:00→17:54)
[2017-07-13] MEDS: BLOOD SUGAR DIAGNOSTIC STRIP TEST SCH ×3 (06:05→17:53)
[2017-07-13] MEDS: PHENYTOIN SODIUM 100MG/2ML VIAL IV SCH ×3 (06:05→22:06)
[2017-07-13] MEDS: CLONIDINE 0.1MG TABLET GT PRN ×2 (06:06→22:06)
[2017-07-13 06:54] LABS: CARBON DIOXIDE 27 mEq/L (21-32); CHLORIDE 113 mEq/L (98-107)
[2017-07-13] MEDS: IPRATROPIUM/ALBUTEROL 0.5-3(2.5)MG/3ML NEB HHN SCH ×4 (08:15→20:13)
[2017-07-13] MEDS: VANCOMYCIN 750 MG PREMIX 150 ML IV SCH ×2 (09:01→20:31)
[2017-07-13] MEDS: THIAMINE HCL 100MG TABLET PO SCH (09:01)
[2017-07-13] MEDS: LEVETIRACETAM 500MG/5ML CUP PO SCH ×2 (09:01→20:31)
[2017-07-13] MEDS: PANTOPRAZOLE SODIUM 40 MG/VIAL IV SCH (09:01)
[2017-07-13] MEDS: FOLIC ACID 1MG TABLET PO SCH (09:01)
[2017-07-13] MEDS: ACETAMINOPHEN 650MG/20.3ML UDC PEG PRN (18:06)
[2017-07-13] MEDS: ENOXAPARIN 40MG/0.4ML SYR SUBCUT SCH (20:32)
[2017-07-14] VITALS (44 sets, daily range): BP systolic 125–178; BP diastolic 75–108
[2017-07-14] MEDS: ALBUTEROL (0.083%) 2.5MG/3ML NEB HHN PRN ×2 (00:24→04:36)
[2017-07-14] MEDS: ACETYLCYSTEINE 100MG/ML 10% VIAL 4ML INH SCH ×6 (00:24→20:33)
[2017-07-14] MEDS: PIPERACILLIN/TAZ 3.375G PREMIX 50 ML IV SCH ×4 (03:41→22:57)
[2017-07-14] MEDS: CLONIDINE 0.1MG TABLET GT PRN ×4 (04:38→23:59)
[2017-07-14] MEDS: BLOOD SUGAR DIAGNOSTIC STRIP TEST SCH ×4 (05:16→18:15)
[2017-07-14] MEDS: PHENYTOIN SODIUM 100MG/2ML VIAL IV SCH ×3 (05:17→22:10)
[2017-07-14] MEDS: INSULIN LISPRO 100 UNITS/ML SUBCUT SCH ×4 (05:17→18:00)
[2017-07-14 05:40] LABS: BASOPHILS % 0.6 % (0.0-2.0); EOSINOPHILS % 2.6 % (0.0-5.0); HEMATOCRIT. 30.5 % (36.0-48.0); HEMOGLOBIN. 9.7 g/dL (12.0-16.0); LYMPHOCYTES % 15.8 % (20.0-50.0); MEAN CORPUSCULAR HEMOGLOBIN 26.9 pg (28.0-32.0); MEAN CORPUSCULAR VOLUME 84.9 fL (81.0-99.0); MEAN PLATELET VOLUME 9.9 fl (7.4-10.4); MONOCYTES % 8.6 % (2.0-8.0); NEUTROPHILS % 72.4 % (40.0-76.0); PLATELET 197 x1000/uL (130-400); RED CELL DISTRIBUTION WIDTH 19.5 % (11.6-14.6)
[2017-07-14 05:57] LABS: CARBON DIOXIDE 29 mEq/L (21-32); CHLORIDE 112 mEq/L (98-107)
[2017-07-14 08:33] LABS: BG BASE EXCESS 1.6 mmol/L (-2.0-2.0); BG CARBOXYHEMOGLOBIN 0.1 % (0.5-1.5); BG DEOXYHEMOGLOBIN 1.7 % (0.0-5.0); BG FRACTION INSPIRED OXYGEN 30; BG HCO3 ACT 25.6 mmol/L (22.0-26.0); BG METHEMOGLOBIN 0.3 % (0.0-1.5); BG OXYGEN SATURATION 98.3 % (92.0-98.5); BG OXYHEMOGLOBIN 97.9 % (94.0-97.0); BG PCO2 37.7 mmHg (35.0-45.0); BG PO2 119.9 mmHg (75.0-100.0); BG SAMPLE SITE RIGHT RADIAL; BG TIDAL VOLUME(mL) 500 mL; BG TOTAL HEMOGLOBIN 9.7 g/dL (12.0-18.0); BG VENT MODE VENT - A/C; BG VENT RATE 8 set
[2017-07-14] MEDS: THIAMINE HCL 100MG TABLET PO SCH (08:48)
[2017-07-14] MEDS: FOLIC ACID 1MG TABLET PO SCH (08:48)
[2017-07-14] MEDS: LEVETIRACETAM 500MG/5ML CUP PO SCH ×2 (08:48→20:34)
[2017-07-14] MEDS: PANTOPRAZOLE SODIUM 40 MG/VIAL IV SCH (08:48)
[2017-07-14] MEDS: VANCOMYCIN 750 MG PREMIX 150 ML IV SCH ×2 (08:49→20:34)
[2017-07-14] MEDS: IPRATROPIUM/ALBUTEROL 0.5-3(2.5)MG/3ML NEB HHN SCH ×4 (08:58→20:32)
[2017-07-14] MEDS: ENOXAPARIN 40MG/0.4ML SYR SUBCUT SCH (20:33)
[2017-07-15] VITALS (46 sets, daily range): BP systolic 114–179; BP diastolic 67–96
[2017-07-15] MEDS: ACETYLCYSTEINE 100MG/ML 10% VIAL 4ML INH SCH ×6 (00:37→20:35)
[2017-07-15] MEDS: ALBUTEROL (0.083%) 2.5MG/3ML NEB HHN PRN ×2 (00:38→05:01)
[2017-07-15] MEDS: PIPERACILLIN/TAZ 3.375G PREMIX 50 ML IV SCH ×4 (04:13→22:51)
[2017-07-15] MEDS: LORAZEPAM 2MG/ML CPJ IV PRN ×2 (05:36→19:18)
[2017-07-15] MEDS: PHENYTOIN SODIUM 100MG/2ML VIAL IV SCH ×3 (05:50→22:51)
[2017-07-15] MEDS: BLOOD SUGAR DIAGNOSTIC STRIP TEST SCH ×4 (05:50→17:44)
[2017-07-15] MEDS: INSULIN LISPRO 100 UNITS/ML SUBCUT SCH ×4 (06:00→17:44)
[2017-07-15] MEDS: CLONIDINE 0.1MG TABLET GT PRN (06:02)
[2017-07-15 08:01] LABS: BG BASE EXCESS 2.1 mmol/L (-2.0-2.0); BG CARBOXYHEMOGLOBIN 0.3 % (0.5-1.5); BG DEOXYHEMOGLOBIN 1.7 % (0.0-5.0); BG FRACTION INSPIRED OXYGEN 30; BG HCO3 ACT 25.2 mmol/L (22.0-26.0); BG METHEMOGLOBIN 0.1 % (0.0-1.5); BG OXYGEN SATURATION 98.3 % (92.0-98.5); BG OXYHEMOGLOBIN 97.9 % (94.0-97.0); BG PCO2 33.2 mmHg (35.0-45.0); BG PH 7.498 (7.350-7.450); BG SAMPLE SITE LEFT RADIAL; BG TIDAL VOLUME(mL) 500 mL; BG TOTAL HEMOGLOBIN 9.3 g/dL (12.0-18.0); BG VENT MODE VENT - A/C; BG VENT RATE 8 set
[2017-07-15] MEDS: PANTOPRAZOLE SODIUM 40 MG/VIAL IV SCH (08:21)
[2017-07-15] MEDS: LEVETIRACETAM 500MG/5ML CUP PO SCH ×2 (08:21→20:09)
[2017-07-15] MEDS: FOLIC ACID 1MG TABLET PO SCH (08:21)
[2017-07-15] MEDS: THIAMINE HCL 100MG TABLET PO SCH (08:21)
[2017-07-15] MEDS: VANCOMYCIN 750 MG PREMIX 150 ML IV SCH (08:22)
[2017-07-15] MEDS: IPRATROPIUM/ALBUTEROL 0.5-3(2.5)MG/3ML NEB HHN SCH ×4 (08:25→20:35)
[2017-07-15] MEDS ORDERED: MORPHINE SULFATE 2 MG/ML CPJ (NOT FOR IM USE) IV PRN (10:00)
[2017-07-15] MEDS: AMLODIPINE 10MG TABLET PO SCH (10:49)
[2017-07-15 10:57] LABS: EOSINOPHILS % 1.9 % (0.0-5.0); HEMATOCRIT. 29.6 % (36.0-48.0); HEMOGLOBIN. 9.3 g/dL (12.0-16.0); LYMPHOCYTES % 15.5 % (20.0-50.0); MEAN CORPUSCULAR HEMOGLOBIN 26.8 pg (28.0-32.0); MEAN CORPUSCULAR VOLUME 85.5 fL (81.0-99.0); MEAN PLATELET VOLUME 10.2 fl (7.4-10.4); NEUTROPHILS % 74.6 % (40.0-76.0); PLATELET 231 x1000/uL (130-400); RED BLOOD CELL COUNT 3.47 mill/uL (4.2-5.4); RED CELL DISTRIBUTION WIDTH 19.9 % (11.6-14.6)
[2017-07-15 11:04] LABS: CARBON DIOXIDE 24 mEq/L (21-32); CHLORIDE 110 mEq/L (98-107)
[2017-07-15] MEDS ORDERED: POTASSIUM CHLORIDE 20MEQ/PACKET PEG SCH (13:30)
[2017-07-15] MEDS ORDERED: VANCOMYCIN 1 G PREMIX 200 ML IV SCH (16:00)
[2017-07-15] MEDS: ENOXAPARIN 40MG/0.4ML SYR SUBCUT SCH (20:06)
[2017-07-15] MEDS: ACETAMINOPHEN 650MG/20.3ML UDC PEG PRN (20:09)
[2017-07-16] VITALS (49 sets, daily range): BP systolic 111–183; BP diastolic 60–146
[2017-07-16] MEDS: BLOOD SUGAR DIAGNOSTIC STRIP TEST SCH ×4 (00:11→17:48)
[2017-07-16] MEDS: DEXT 5%/0.45% NACL 1000ML 1,000 ML IV SCH ×2 (00:13→15:28)
[2017-07-16] MEDS: ACETYLCYSTEINE 100MG/ML 10% VIAL 4ML INH SCH ×4 (00:13→12:03)
[2017-07-16] MEDS: PIPERACILLIN/TAZ 3.375G PREMIX 50 ML IV SCH ×4 (04:25→22:19)
[2017-07-16] MEDS: MORPHINE SULFATE 4 MG/ML CPJ (NOT FOR IM USE) IV PRN ×2 (05:10→14:46)
[2017-07-16] MEDS: INSULIN LISPRO 100 UNITS/ML SUBCUT SCH ×4 (05:42→18:00)
[2017-07-16] MEDS: VANCOMYCIN 1 G PREMIX 200 ML IV SCH ×2 (06:19→23:00)
[2017-07-16] MEDS: PHENYTOIN SODIUM 100MG/2ML VIAL IV SCH ×3 (06:21→22:02)
[2017-07-16] MEDS: PANTOPRAZOLE SODIUM 40 MG/VIAL IV SCH (08:10)
[2017-07-16] MEDS: AMLODIPINE 10MG TABLET PO SCH (08:17)
[2017-07-16] MEDS: LEVETIRACETAM 500MG/5ML CUP PO SCH ×2 (08:17→21:13)
[2017-07-16] MEDS: FOLIC ACID 1MG TABLET PO SCH (08:17)
[2017-07-16] MEDS: THIAMINE HCL 100MG TABLET PO SCH (08:17)
[2017-07-16] MEDS: IPRATROPIUM/ALBUTEROL 0.5-3(2.5)MG/3ML NEB HHN SCH ×4 (08:21→20:02)
[2017-07-16] MEDS: CLONIDINE 0.1MG TABLET GT PRN (09:02)
[2017-07-16] MEDS ORDERED: PHENYTOIN SODIUM 1,000 MG in SODIUM CHLORIDE 0.9% 100 ML IV NR (16:30)
[2017-07-16] MEDS ORDERED: VECURONIUM BROMIDE 10 MG/VIAL IV ONE (17:22)
[2017-07-16] MEDS ORDERED: SODIUM CHLORIDE 0.9% 10ML VIAL ONE (17:22)
[2017-07-16] MEDS: DEXTROSE 50% WATER 50ML SYRINGE IV PRN (17:50)
[2017-07-16] MEDS: ENOXAPARIN 40MG/0.4ML SYR SUBCUT SCH (21:13)
[2017-07-17] VITALS (24 sets, daily range): BP systolic 116–174; BP diastolic 64–99
[2017-07-17] MEDS: MORPHINE SULFATE 4 MG/ML CPJ (NOT FOR IM USE) IV PRN (03:59)
[2017-07-17] MEDS: PIPERACILLIN/TAZ 3.375G PREMIX 50 ML IV SCH ×4 (04:02→21:24)
[2017-07-17] MEDS: BLOOD SUGAR DIAGNOSTIC STRIP TEST SCH ×4 (05:43→17:18)
[2017-07-17] MEDS: PHENYTOIN SODIUM 100MG/2ML VIAL IV SCH ×3 (05:43→21:23)
[2017-07-17] MEDS: INSULIN LISPRO 100 UNITS/ML SUBCUT SCH ×4 (06:00→18:15)
[2017-07-17 06:18] LABS: BASOPHILS % 0.4 % (0.0-2.0); EOSINOPHILS % 2.7 % (0.0-5.0); HEMATOCRIT. 31.7 % (36.0-48.0); LYMPHOCYTES % 10.9 % (20.0-50.0); MEAN CORPUSCULAR HEMOGLOBIN 27.1 pg (28.0-32.0); MEAN CORPUSCULAR VOLUME 86.3 fL (81.0-99.0); MEAN PLATELET VOLUME 9.4 fl (7.4-10.4); MONOCYTES % 7.4 % (2.0-8.0); NEUTROPHILS % 78.6 % (40.0-76.0); PLATELET 273 x1000/uL (130-400); RED BLOOD CELL COUNT 3.68 mill/uL (4.2-5.4); RED CELL DISTRIBUTION WIDTH 20.6 % (11.6-14.6)
[2017-07-17 06:34] LABS: CARBON DIOXIDE 26 mEq/L (21-32); CHLORIDE 111 mEq/L (98-107); PHOSPHORUS 1.7 mg/dL (2.5-4.9)
[2017-07-17] MEDS: DEXT 5%/0.45% NACL 1000ML 1,000 ML IV SCH ×2 (07:00→15:09)
[2017-07-17] MEDS: AMLODIPINE 10MG TABLET PO SCH (08:14)
[2017-07-17] MEDS: LEVETIRACETAM 500MG/5ML CUP PO SCH ×2 (08:14→20:44)
[2017-07-17] MEDS: THIAMINE HCL 100MG TABLET PO SCH (08:14)
[2017-07-17] MEDS: FOLIC ACID 1MG TABLET PO SCH (08:14)
[2017-07-17] MEDS: CLONIDINE 0.1MG TABLET GT PRN ×2 (08:14→14:24)
[2017-07-17] MEDS: PANTOPRAZOLE SODIUM 40 MG/VIAL IV SCH (08:14)
[2017-07-17] MEDS: IPRATROPIUM/ALBUTEROL 0.5-3(2.5)MG/3ML NEB HHN SCH ×4 (08:34→20:05)
[2017-07-17 09:23] LABS: BG BASE EXCESS 2.2 mmol/L (-2.0-2.0); BG CARBOXYHEMOGLOBIN 0.5 % (0.5-1.5); BG DEOXYHEMOGLOBIN 2.3 % (0.0-5.0); BG FRACTION INSPIRED OXYGEN 30; BG HCO3 ACT 25.7 mmol/L (22.0-26.0); BG METHEMOGLOBIN 0.3 % (0.0-1.5); BG OXYGEN SATURATION 97.7 % (92.0-98.5); BG OXYHEMOGLOBIN 96.9 % (94.0-97.0); BG PCO2 35.5 mmHg (35.0-45.0); BG PH 7.477 (7.350-7.450); BG PO2 97.1 mmHg (75.0-100.0); BG SAMPLE SITE RIGHT RADIAL; BG TIDAL VOLUME(mL) 500 mL; BG TOTAL HEMOGLOBIN 9.9 g/dL (12.0-18.0); BG VENT MODE VENT - A/C; BG VENT RATE 8 set
[2017-07-17] MEDS: VANCOMYCIN 1 G PREMIX 200 ML IV SCH (16:01)
[2017-07-17] MEDS: ENOXAPARIN 40MG/0.4ML SYR SUBCUT SCH (20:44)
[2017-07-18] VITALS (14 sets, daily range): BP systolic 140–166; BP diastolic 67–99
[2017-07-18] MEDS: DEXT 5%/0.45% NACL 1000ML 1,000 ML IV SCH ×2 (02:55→17:00)
[2017-07-18] MEDS: PIPERACILLIN/TAZ 3.375G PREMIX 50 ML IV SCH ×4 (03:28→21:50)
[2017-07-18] MEDS: PHENYTOIN SODIUM 100MG/2ML VIAL IV SCH ×3 (05:49→21:57)
[2017-07-18] MEDS: CLONIDINE 0.1MG TABLET GT PRN (05:51)
[2017-07-18] MEDS: INSULIN LISPRO 100 UNITS/ML SUBCUT SCH ×4 (06:00→17:34)
[2017-07-18] MEDS: BLOOD SUGAR DIAGNOSTIC STRIP TEST SCH ×4 (06:03→17:00)
[2017-07-18 07:12] LABS: CARBON DIOXIDE 26 mEq/L (21-32); CHLORIDE 111 mEq/L (98-107)
[2017-07-18] MEDS: IPRATROPIUM/ALBUTEROL 0.5-3(2.5)MG/3ML NEB HHN SCH ×4 (08:40→19:59)
[2017-07-18] MEDS: THIAMINE HCL 100MG TABLET PO SCH (10:46)
[2017-07-18] MEDS: LEVETIRACETAM 500MG/5ML CUP PO SCH ×2 (10:46→20:33)
[2017-07-18] MEDS: FOLIC ACID 1MG TABLET PO SCH (10:46)
[2017-07-18] MEDS: PANTOPRAZOLE SODIUM 40 MG/VIAL IV SCH (10:46)
[2017-07-18] MEDS: AMLODIPINE 10MG TABLET PO SCH (10:46)
[2017-07-18] MEDS ORDERED: POTASSIUM CHLORIDE 20MEQ/PACKET PO SCH (13:30)
[2017-07-18] MEDS: VANCOMYCIN 1 G PREMIX 200 ML IV SCH (14:52)
[2017-07-18] MEDS: ENOXAPARIN 40MG/0.4ML SYR SUBCUT SCH (20:33)
[2017-07-18] MEDS: ACETAMINOPHEN 650MG/20.3ML UDC PEG PRN (20:35)
[2017-07-19] VITALS (14 sets, daily range): BP systolic 133–172; BP diastolic 71–91
[2017-07-19] MEDS: BLOOD SUGAR DIAGNOSTIC STRIP TEST SCH ×6 (05:53→23:09)
[2017-07-19] MEDS: INSULIN LISPRO 100 UNITS/ML SUBCUT SCH ×5 (06:00→23:10)
[2017-07-19] MEDS: PHENYTOIN SODIUM 100MG/2ML VIAL IV SCH ×3 (06:01→22:59)
[2017-07-19 07:10] LABS: BASOPHILS % 0.6 % (0.0-2.0); EOSINOPHILS % 2.8 % (0.0-5.0); HEMATOCRIT. 29.8 % (36.0-48.0); HEMOGLOBIN. 9.6 g/dL (12.0-16.0); LYMPHOCYTES % 20.8 % (20.0-50.0); MEAN CORPUSCULAR VOLUME 83.7 fL (81.0-99.0); MEAN PLATELET VOLUME 9.1 fl (7.4-10.4); MONOCYTES % 7.2 % (2.0-8.0); NEUTROPHILS % 68.6 % (40.0-76.0); PLATELET 280 x1000/uL (130-400); RED BLOOD CELL COUNT 3.56 mill/uL (4.2-5.4)
[2017-07-19] MEDS: IPRATROPIUM/ALBUTEROL 0.5-3(2.5)MG/3ML NEB HHN SCH ×4 (08:13→20:32)
[2017-07-19 08:33] LABS: CARBON DIOXIDE 25 mEq/L (21-32); CHLORIDE 110 mEq/L (98-107)
[2017-07-19 09:09] LABS: PHOSPHORUS 0.9 mg/dL (2.5-4.9)
[2017-07-19] MEDS: PANTOPRAZOLE SODIUM 40 MG/VIAL IV SCH (09:12)
[2017-07-19] MEDS: DEXT 5%/0.45% NACL 1000ML 1,000 ML IV SCH ×2 (09:12→20:31)
[2017-07-19] MEDS: LEVETIRACETAM 500MG/5ML CUP PO SCH ×2 (09:13→20:02)
[2017-07-19] MEDS: FOLIC ACID 1MG TABLET PO SCH (09:14)
[2017-07-19] MEDS: THIAMINE HCL 100MG TABLET PO SCH (09:14)
[2017-07-19] MEDS: AMLODIPINE 10MG TABLET PO SCH (09:14)
[2017-07-19] MEDS: CLONIDINE 0.1MG TABLET GT PRN ×2 (10:35→16:56)
[2017-07-19] MEDS: POTASSIUM CHLORIDE 20MEQ/PACKET GT SCH ×2 (10:35→20:01)
[2017-07-19] MEDS ORDERED: MAGNESIUM 2 G PREMIX 50 ML IV NR (12:00)
[2017-07-19] MEDS ORDERED: POTASSIUM PHOS,M-BASIC-D-BASIC 20 MMOL in DEXT 5% WATER 243.3333 ML IV NR (12:30)
[2017-07-19] MEDS: ENOXAPARIN 40MG/0.4ML SYR SUBCUT SCH (20:03)
[2017-07-20] VITALS (12 sets, daily range): BP systolic 140–167; BP diastolic 74–90
[2017-07-20] MEDS: CLONIDINE 0.1MG TABLET GT PRN ×2 (00:59→19:16)
[2017-07-20] MEDS: BLOOD SUGAR DIAGNOSTIC STRIP TEST SCH ×3 (06:00→18:59)
[2017-07-20] MEDS: INSULIN LISPRO 100 UNITS/ML SUBCUT SCH ×3 (06:00→18:00)
[2017-07-20] MEDS: PHENYTOIN SODIUM 100MG/2ML VIAL IV SCH ×3 (06:50→21:08)
[2017-07-20] MEDS: IPRATROPIUM/ALBUTEROL 0.5-3(2.5)MG/3ML NEB HHN SCH ×4 (08:01→20:23)
[2017-07-20] MEDS: FOLIC ACID 1MG TABLET PO SCH (09:00)
[2017-07-20] MEDS: THIAMINE HCL 100MG TABLET PO SCH (09:00)
[2017-07-20] MEDS: PANTOPRAZOLE SODIUM 40 MG/VIAL IV SCH (10:34)
[2017-07-20] MEDS: AMLODIPINE 10MG TABLET PO SCH (10:35)
[2017-07-20] MEDS: LEVETIRACETAM 500MG/5ML CUP PO SCH ×2 (10:36→20:36)
[2017-07-20] MEDS: DEXT 5%/0.45% NACL 1000ML 1,000 ML IV SCH (10:37)
[2017-07-20] MEDS: ACETAMINOPHEN 650MG/20.3ML UDC PEG PRN ×2 (10:38→20:37)
[2017-07-20] MEDS: ENOXAPARIN 40MG/0.4ML SYR SUBCUT SCH (20:37)
[2017-07-21] VITALS (15 sets, daily range): BP systolic 139–171; BP diastolic 75–95
[2017-07-21] MEDS: DEXT 5%/0.45% NACL 1000ML 1,000 ML IV SCH (00:37)
[2017-07-21] MEDS: BLOOD SUGAR DIAGNOSTIC STRIP TEST SCH ×5 (00:37→23:01)
[2017-07-21] MEDS: PHENYTOIN SODIUM 100MG/2ML VIAL IV SCH ×3 (05:05→21:12)
[2017-07-21] MEDS: INSULIN LISPRO 100 UNITS/ML SUBCUT SCH ×5 (05:09→23:02)
[2017-07-21 06:46] LABS: BASOPHILS % 0.7 % (0.0-2.0); EOSINOPHILS % 3.3 % (0.0-5.0); HEMATOCRIT. 31.7 % (36.0-48.0); HEMOGLOBIN. 10.3 g/dL (12.0-16.0); LYMPHOCYTES % 15.9 % (20.0-50.0); MEAN CORPUSCULAR HEMOGLOBIN 27.5 pg (28.0-32.0); MEAN CORPUSCULAR VOLUME 84.7 fL (81.0-99.0); MEAN PLATELET VOLUME 9.1 fl (7.4-10.4); MONOCYTES % 5.6 % (2.0-8.0); NEUTROPHILS % 74.5 % (40.0-76.0); PLATELET 331 x1000/uL (130-400); RED BLOOD CELL COUNT 3.74 mill/uL (4.2-5.4); RED CELL DISTRIBUTION WIDTH 19.9 % (11.6-14.6)
[2017-07-21 07:18] LABS: CARBON DIOXIDE 25 mEq/L (21-32); CHLORIDE 108 mEq/L (98-107)
[2017-07-21] MEDS: IPRATROPIUM/ALBUTEROL 0.5-3(2.5)MG/3ML NEB HHN SCH ×4 (07:48→20:49)
[2017-07-21] MEDS: PANTOPRAZOLE SODIUM 40 MG/VIAL IV SCH (09:19)
[2017-07-21] MEDS: LEVETIRACETAM 500MG/5ML CUP PO SCH ×2 (09:19→21:11)
[2017-07-21] MEDS: FOLIC ACID 1MG TABLET PO SCH (09:20)
[2017-07-21] MEDS: THIAMINE HCL 100MG TABLET PO SCH (09:20)
[2017-07-21] MEDS: AMLODIPINE 10MG TABLET PO SCH (09:20)
[2017-07-21] MEDS: CLONIDINE 0.1MG TABLET GT PRN ×3 (09:21→21:34)
[2017-07-21] MEDS: ACETAMINOPHEN 650MG/20.3ML UDC PEG PRN (12:39)
[2017-07-21] MEDS: POTASSIUM CHLORIDE 20MEQ/PACKET GT SCH (12:47)
[2017-07-21] MEDS: CEFEPIME 1,000 MG in DEXTROSE 5% WATER 50 ML IV SCH ×2 (16:02→22:44)
[2017-07-21] MEDS: ENOXAPARIN 40MG/0.4ML SYR SUBCUT SCH (21:12)
[2017-07-22] VITALS (9 sets, daily range): BP systolic 148–181; BP diastolic 83–94
[2017-07-22] MEDS: ACETAMINOPHEN 650MG/20.3ML UDC PEG PRN ×3 (03:21→21:44)
[2017-07-22] MEDS: INSULIN LISPRO 100 UNITS/ML SUBCUT SCH ×3 (05:14→18:00)
[2017-07-22] MEDS: PHENYTOIN SODIUM 100MG/2ML VIAL IV SCH ×3 (05:14→21:44)
[2017-07-22] MEDS: BLOOD SUGAR DIAGNOSTIC STRIP TEST SCH ×3 (05:14→18:14)
[2017-07-22] MEDS: IPRATROPIUM/ALBUTEROL 0.5-3(2.5)MG/3ML NEB HHN SCH ×4 (07:55→20:18)
[2017-07-22] MEDS: POTASSIUM CHLORIDE 20MEQ/PACKET GT SCH (08:53)
[2017-07-22] MEDS: THIAMINE HCL 100MG TABLET PO SCH (08:53)
[2017-07-22] MEDS: FOLIC ACID 1MG TABLET PO SCH (08:53)
[2017-07-22] MEDS: PANTOPRAZOLE SODIUM 40 MG/VIAL IV SCH (08:53)
[2017-07-22] MEDS ORDERED: POTASSIUM CHLORIDE 20MEQ/PACKET GT SCH (09:00)
[2017-07-22] MEDS: AMLODIPINE 10MG TABLET PO SCH (09:51)
[2017-07-22] MEDS: CEFEPIME 1,000 MG in DEXTROSE 5% WATER 50 ML IV SCH ×2 (09:51→21:45)
[2017-07-22] MEDS: LEVETIRACETAM 500MG/5ML CUP PO SCH ×2 (12:09→21:44)
[2017-07-22 17:25] LABS: BASOPHILS % 0.9 % (0.0-2.0); EOSINOPHILS % 3.1 % (0.0-5.0); HEMATOCRIT. 33.7 % (36.0-48.0); HEMOGLOBIN. 10.7 g/dL (12.0-16.0); LYMPHOCYTES % 18.8 % (20.0-50.0); MEAN CORPUSCULAR HEMOGLOBIN 27.1 pg (28.0-32.0); MEAN CORPUSCULAR VOLUME 85.4 fL (81.0-99.0); MEAN PLATELET VOLUME 8.6 fl (7.4-10.4); MONOCYTES % 7.6 % (2.0-8.0); NEUTROPHILS % 69.6 % (40.0-76.0); PLATELET 367 x1000/uL (130-400); RED BLOOD CELL COUNT 3.94 mill/uL (4.2-5.4); RED CELL DISTRIBUTION WIDTH 20.2 % (11.6-14.6)
[2017-07-22 17:48] LABS: CARBON DIOXIDE 27 mEq/L (21-32); CHLORIDE 115 mEq/L (98-107)
[2017-07-22] MEDS: ENOXAPARIN 40MG/0.4ML SYR SUBCUT SCH (21:44)
[2017-07-23] VITALS (12 sets, daily range): BP systolic 132–158; BP diastolic 65–94
[2017-07-23] MEDS: BLOOD SUGAR DIAGNOSTIC STRIP TEST SCH ×5 (00:21→23:22)
[2017-07-23] MEDS: CLONIDINE 0.1MG TABLET GT PRN (03:49)
[2017-07-23] MEDS: ACETAMINOPHEN 650MG/20.3ML UDC PEG PRN ×3 (04:13→23:09)
[2017-07-23] MEDS: PHENYTOIN SODIUM 100MG/2ML VIAL IV SCH ×3 (05:48→21:55)
[2017-07-23 06:00] LABS: BASOPHILS % 0.6 % (0.0-2.0); EOSINOPHILS % 2.2 % (0.0-5.0); HEMATOCRIT. 36.2 % (36.0-48.0); HEMOGLOBIN. 11.4 g/dL (12.0-16.0); LYMPHOCYTES % 18.9 % (20.0-50.0); MEAN CORPUSCULAR HEMOGLOBIN 26.9 pg (28.0-32.0); MEAN CORPUSCULAR VOLUME 85.2 fL (81.0-99.0); MEAN PLATELET VOLUME 9.2 fl (7.4-10.4); MONOCYTES % 7.2 % (2.0-8.0); NEUTROPHILS % 71.1 % (40.0-76.0); PLATELET 386 x1000/uL (130-400); RED BLOOD CELL COUNT 4.25 mill/uL (4.2-5.4); RED CELL DISTRIBUTION WIDTH 20.6 % (11.6-14.6)
[2017-07-23] MEDS: INSULIN LISPRO 100 UNITS/ML SUBCUT SCH ×5 (06:11→23:22)
[2017-07-23 06:29] LABS: CARBON DIOXIDE 26 mEq/L (21-32); CHLORIDE 113 mEq/L (98-107)
[2017-07-23 07:28] LABS: CLARITY URINE CLEAR (CLEAR); COLOR URINE YELLOW (YELLOW); GLUCOSE URINE NEGATIVE (NEGATIVE); KETONES URINE NEGATIVE (NEGATIVE); LEUKOCYTE ESTERASE URINE NEGATIVE (NEGATIVE); NITRITE URINE NEGATIVE (NEGATIVE); OCCULT BLOOD URINE NEGATIVE (NEGATIVE); PH URINE 5.5 (4.5-8.0); PROTEIN URINE TRACE (NEGATIVE); SPECIFIC GRAVITY URINE 1.016 (1.005-1.030); UROBILINOGEN URINE 0.2 E.U./dL (0.2-1.0)
[2017-07-23] MEDS: AMLODIPINE 10MG TABLET PO SCH (08:17)
[2017-07-23] MEDS: LEVETIRACETAM 500MG/5ML CUP PO SCH ×2 (08:17→20:24)
[2017-07-23] MEDS: POTASSIUM CHLORIDE 20MEQ/PACKET GT SCH (08:17)
[2017-07-23] MEDS: THIAMINE HCL 100MG TABLET PO SCH (08:17)
[2017-07-23] MEDS: PANTOPRAZOLE SODIUM 40 MG/VIAL IV SCH (08:17)
[2017-07-23] MEDS: CEFEPIME 1,000 MG in DEXTROSE 5% WATER 50 ML IV SCH ×2 (08:18→20:21)
[2017-07-23] MEDS: FOLIC ACID 1MG TABLET PO SCH (08:18)
[2017-07-23] MEDS: IPRATROPIUM/ALBUTEROL 0.5-3(2.5)MG/3ML NEB HHN SCH ×4 (09:00→20:05)
[2017-07-23] MEDS: ENOXAPARIN 40MG/0.4ML SYR SUBCUT SCH (20:24)
[2017-07-24] VITALS (11 sets, daily range): BP systolic 124–152; BP diastolic 64–101
[2017-07-24] MEDS: INSULIN LISPRO 100 UNITS/ML SUBCUT SCH ×4 (05:05→23:22)
[2017-07-24] MEDS: BLOOD SUGAR DIAGNOSTIC STRIP TEST SCH ×4 (05:05→23:22)
[2017-07-24] MEDS: PHENYTOIN SODIUM 100MG/2ML VIAL IV SCH ×3 (05:17→21:03)
[2017-07-24] MEDS: IPRATROPIUM/ALBUTEROL 0.5-3(2.5)MG/3ML NEB HHN SCH ×4 (08:05→20:07)
[2017-07-24] MEDS: FOLIC ACID 1MG TABLET PO SCH (09:41)
[2017-07-24] MEDS: POTASSIUM CHLORIDE 20MEQ/PACKET GT SCH (09:41)
[2017-07-24] MEDS: THIAMINE HCL 100MG TABLET PO SCH (09:41)
[2017-07-24] MEDS: PANTOPRAZOLE SODIUM 40 MG/VIAL IV SCH (09:41)
[2017-07-24] MEDS: AMLODIPINE 10MG TABLET PO SCH (09:41)
[2017-07-24] MEDS: LEVETIRACETAM 500MG/5ML CUP PO SCH ×2 (09:42→21:03)
[2017-07-24] MEDS: CEFEPIME 1,000 MG in DEXTROSE 5% WATER 50 ML IV SCH ×2 (09:52→21:03)
[2017-07-24] MEDS: ENOXAPARIN 40MG/0.4ML SYR SUBCUT SCH (21:03)
[2017-07-24] MEDS: ACETAMINOPHEN 650MG/20.3ML UDC PEG PRN (21:09)
[2017-07-25] VITALS (15 sets, daily range): BP systolic 118–173; BP diastolic 64–87
[2017-07-25] MEDS: CLONIDINE 0.1MG TABLET GT PRN (00:40)
[2017-07-25] MEDS: PHENYTOIN SODIUM 100MG/2ML VIAL IV SCH ×3 (06:20→21:33)
[2017-07-25] MEDS: INSULIN LISPRO 100 UNITS/ML SUBCUT SCH ×4 (06:20→23:41)
[2017-07-25] MEDS: BLOOD SUGAR DIAGNOSTIC STRIP TEST SCH ×4 (06:20→23:41)
[2017-07-25] MEDS: IPRATROPIUM/ALBUTEROL 0.5-3(2.5)MG/3ML NEB HHN SCH ×4 (08:25→21:04)
[2017-07-25] MEDS: THIAMINE HCL 100MG TABLET PO SCH (09:00)
[2017-07-25] MEDS: PANTOPRAZOLE SODIUM 40 MG/VIAL IV SCH (10:02)
[2017-07-25] MEDS: POTASSIUM CHLORIDE 20MEQ/PACKET GT SCH (10:02)
[2017-07-25] MEDS: ACETAMINOPHEN 650MG/20.3ML UDC PEG PRN (10:02)
[2017-07-25] MEDS: AMLODIPINE 10MG TABLET PO SCH (10:02)
[2017-07-25] MEDS: METOPROLOL TARTRATE 50MG TABLET PO SCH ×2 (10:03→21:33)
[2017-07-25] MEDS: FOLIC ACID 1MG TABLET PO SCH (10:03)
[2017-07-25] MEDS: CEFEPIME 1,000 MG in DEXTROSE 5% WATER 50 ML IV SCH ×2 (10:06→21:33)
[2017-07-25 10:50] LABS: BG BASE EXCESS 1.3 mmol/L (-2.0-2.0); BG CARBOXYHEMOGLOBIN 0.1 % (0.5-1.5); BG DEOXYHEMOGLOBIN 3.6 % (0.0-5.0); BG FRACTION INSPIRED OXYGEN 30; BG HCO3 ACT 24.2 mmol/L (22.0-26.0); BG METHEMOGLOBIN 0.2 % (0.0-1.5); BG OXYGEN SATURATION 96.4 % (92.0-98.5); BG OXYHEMOGLOBIN 96.1 % (94.0-97.0); BG PCO2 32.7 mmHg (35.0-45.0); BG PH 7.487 (7.350-7.450); BG PO2 82.9 mmHg (75.0-100.0); BG SAMPLE SITE RIGHT RADIAL; BG TIDAL VOLUME(mL) 450 mL; BG TOTAL HEMOGLOBIN 11.6 g/dL (12.0-18.0); BG VENT MODE VENT - A/C; BG VENT RATE 8 set
[2017-07-25 10:52] LABS: CREATINE KINASE 44 IU/L (26-192)
[2017-07-25] MEDS: LEVETIRACETAM 500MG/5ML CUP PO SCH ×2 (12:01→21:33)
[2017-07-25] MEDS: METRONIDAZOLE 500 MG PREMIX 100 ML IV SCH ×2 (12:01→19:32)
[2017-07-25] MEDS: ENOXAPARIN 40MG/0.4ML SYR SUBCUT SCH (21:33)
[2017-07-26] VITALS (12 sets, daily range): BP systolic 110–128; BP diastolic 54–76
[2017-07-26] MEDS: METRONIDAZOLE 500 MG PREMIX 100 ML IV SCH ×3 (02:00→18:03)
[2017-07-26] MEDS: PHENYTOIN SODIUM 100MG/2ML VIAL IV SCH ×3 (05:44→21:05)
[2017-07-26] MEDS: BLOOD SUGAR DIAGNOSTIC STRIP TEST SCH ×4 (05:44→23:35)
[2017-07-26] MEDS: INSULIN LISPRO 100 UNITS/ML SUBCUT SCH ×4 (05:47→23:35)
[2017-07-26] MEDS: IPRATROPIUM/ALBUTEROL 0.5-3(2.5)MG/3ML NEB HHN SCH ×4 (07:55→20:05)
[2017-07-26] MEDS: ACETAMINOPHEN 650MG/20.3ML UDC PEG PRN ×2 (08:37→14:54)
[2017-07-26] MEDS: AMLODIPINE 10MG TABLET PO SCH (08:37)
[2017-07-26] MEDS: PANTOPRAZOLE SODIUM 40 MG/VIAL IV SCH (08:37)
[2017-07-26] MEDS: CEFEPIME 1,000 MG in DEXTROSE 5% WATER 50 ML IV SCH ×2 (08:37→21:03)
[2017-07-26] MEDS: POTASSIUM CHLORIDE 20MEQ/PACKET GT SCH (08:37)
[2017-07-26] MEDS: METOPROLOL TARTRATE 50MG TABLET PO SCH ×2 (08:38→21:04)
[2017-07-26] MEDS: THIAMINE HCL 100MG TABLET PO SCH (08:38)
[2017-07-26] MEDS: FOLIC ACID 1MG TABLET PO SCH (08:38)
[2017-07-26] MEDS: LEVETIRACETAM 500MG/5ML CUP PO SCH ×2 (09:05→21:03)
[2017-07-26] MEDS ORDERED: VANCOMYCIN 1250MG in DEXTROSE 5% WATER 250ML IV NR (21:00)
[2017-07-26] MEDS: ENOXAPARIN 40MG/0.4ML SYR SUBCUT SCH (21:05)
[2017-07-27] VITALS (10 sets, daily range): BP systolic 94–130; BP diastolic 50–64
[2017-07-27] MEDS: METRONIDAZOLE 500 MG PREMIX 100 ML IV SCH ×2 (03:00→10:38)
[2017-07-27] MEDS: PHENYTOIN SODIUM 100MG/2ML VIAL IV SCH ×3 (06:00→20:37)
[2017-07-27] MEDS: BLOOD SUGAR DIAGNOSTIC STRIP TEST SCH ×3 (06:00→17:24)
[2017-07-27] MEDS: INSULIN LISPRO 100 UNITS/ML SUBCUT SCH ×3 (06:00→17:24)
[2017-07-27] MEDS: IPRATROPIUM/ALBUTEROL 0.5-3(2.5)MG/3ML NEB HHN SCH ×4 (07:45→19:38)
[2017-07-27] MEDS ORDERED: VANCOMYCIN 1 G PREMIX 200 ML IV SCH (08:00)
[2017-07-27] MEDS: PANTOPRAZOLE SODIUM 40 MG/VIAL IV SCH (08:57)
[2017-07-27] MEDS: CEFEPIME 1,000 MG in DEXTROSE 5% WATER 50 ML IV SCH (08:58)
[2017-07-27] MEDS: LEVETIRACETAM 500MG/5ML CUP PO SCH ×2 (08:58→20:37)
[2017-07-27] MEDS: POTASSIUM CHLORIDE 20MEQ/PACKET GT SCH (08:59)
[2017-07-27] MEDS: AMLODIPINE 10MG TABLET PO SCH (09:00)
[2017-07-27] MEDS: METOPROLOL TARTRATE 50MG TABLET PO SCH ×2 (09:00→20:38)
[2017-07-27] MEDS: THIAMINE HCL 100MG TABLET PO SCH (09:02)
[2017-07-27] MEDS: FOLIC ACID 1MG TABLET PO SCH (09:02)
[2017-07-27 09:43] LABS: CARBON DIOXIDE 22 mEq/L (21-32); CHLORIDE 121 mEq/L (98-107); PHOSPHORUS 1.1 mg/dL (2.5-4.9)
[2017-07-27 10:11] LABS: HEMATOCRIT. 35.6 % (36.0-48.0); HEMOGLOBIN. 10.8 g/dL (12.0-16.0); MEAN CORPUSCULAR HEMOGLOBIN 26.8 pg (28.0-32.0); MEAN PLATELET VOLUME 10.3 fl (7.4-10.4); PLATELET 241 x1000/uL (130-400); RED BLOOD CELL COUNT 4.05 mill/uL (4.2-5.4); RED CELL DISTRIBUTION WIDTH 21.1 % (11.6-14.6)
[2017-07-27] MEDS ORDERED: LORAZEPAM 2MG/ML CPJ ONE (12:02)
[2017-07-27] MEDS ORDERED: LORAZEPAM 2MG/ML CPJ IV PRN (12:45)
[2017-07-27] MEDS: ACETAMINOPHEN 650MG/20.3ML UDC PEG PRN (12:50)
[2017-07-27] MEDS ORDERED: PHENYTOIN SODIUM 100MG/2ML VIAL IV ONE (14:00)
[2017-07-27] MEDS ORDERED: NA PHOS,M-B/NA PHOS,DI-BA ENEMA 118ML PR NR (14:00)
[2017-07-27] MEDS ORDERED: MEROPENEM 500 MG in SODIUM CHLORIDE 0.9% 50 ML IV SCH (14:30)
[2017-07-27] MEDS ORDERED: PHENYTOIN SODIUM 500MG in SODIUM CHLORIDE 0.9% 50ML IV NR (15:00)
[2017-07-27] MEDS: ENOXAPARIN 40MG/0.4ML SYR SUBCUT SCH (20:39)
[2017-07-28 04:12] LABS: PLATELET ESTIMATE NORMAL
== END 2017-07-28 00:28 | DRG 4 ==
LOC: ER 05:46 → ENRESERV 07:25 → MICUSO 08:28 → EDBEDREQ 08:31 → EDBEDREQSVC 08:31 → MICUSO 07-17 01:03 → 5EST 07-17 22:38
PROVIDERS: ADMIT Internal Medicine Nephrology; ATTEND Internal Medicine Nephrology
PROC: 5A1955Z Respiratory Ventilation, Greater than 96 Consecutive Hours (ICD-10-PCS; principal; 2017-07-08)
PROC: 0BH17EZ Insertion of Endotracheal Airway into Trachea, Via Natural or Artificial Opening (ICD-10-PCS; 2017-07-08)
PROC: 0B113F4 Bypass Trachea to Cutaneous with Tracheostomy Device, Percutaneous Approach (ICD-10-PCS; 2017-07-16)
PROC: 5A1955Z Respiratory Ventilation, Greater than 96 Consecutive Hours (ICD-10-PCS; 2017-07-16)
DX: A41.9 Sepsis, unspecified organism (principal); J69.0 Pneumonitis due to inhalation of food and vomit; E43 Unspecified severe protein-calorie malnutrition; N17.0 Acute kidney failure with tubular necrosis; G93.41 Metabolic encephalopathy; E87.0 Hyperosmolality and hypernatremia; J96.00 Acute respiratory failure, unspecified whether with hypoxia or hypercapnia; E87.3 Alkalosis; N39.0 Urinary tract infection, site not specified; L89.90 Pressure ulcer of unspecified site, unspecified stage; G40.901 Epilepsy, unspecified, not intractable, with status epilepticus; I13.10 Hypertensive heart and chronic kidney disease without heart failure, with stage 1 through stage 4 chronic kidney disease, or unspecified chronic kidney disease; N18.9 Chronic kidney disease, unspecified; E11.22 Type 2 diabetes mellitus with diabetic chronic kidney disease; L89.899 Pressure ulcer of other site, unspecified stage; E87.6 Hypokalemia; F03.90 Unspecified dementia, unspecified severity, without behavioral disturbance, psychotic disturbance, mood disturbance, and anxiety; H40.9 Unspecified glaucoma; K56.41 Fecal impaction; K21.9 Gastro-esophageal reflux disease without esophagitis; E83.42 Hypomagnesemia; E83.39 Other disorders of phosphorus metabolism; E78.5 Hyperlipidemia, unspecified; E78.1 Pure hyperglyceridemia; D64.9 Anemia, unspecified; Z86.718 Personal history of other venous thrombosis and embolism; Z93.1 Gastrostomy status; Z79.899 Other long term (current) drug therapy; Z74.01 Bed confinement status; Z79.82 Long term (current) use of aspirin; I69.30 Unspecified sequelae of cerebral infarction; Z68.29 Body mass index [BMI] 29.0-29.9, adult
CPT/HCPCS: 31500; 36415; 36600; 51702; 70450; 70551; 71010; 71250; 74176; 80048; 80053; 80185; 80202; 80305; 81001; 82375; 82542; 82550; 82553; 82805; 82962; 83605; 83735; 83880; 84100; 84145; 84478; 84484; 85025; 85610; 85730; 87040; 87070; 87077; 87086; 87186; 93005; 93971; 94002; 94003; 94640; 96365; 96375; 99291; A4216; A6261; C9113; J0330; J0692; J1165; J1650; J1815; J1953; J2060; J2185; J2250; J2270; J2543; J2704; J3010; J3370; J3475; J3480; J3490; J7030; J7040; J7050; J7060; J7070; J7608; J7611; J7620

== ENCOUNTER 2018-12-28 00:05 | Inpatient (IN) | payer MEDICARE, BC ==
[~2018-12-28] VITALS: Ht 165.1 cm; Wt 89.8 kg
[2018-12-28] MEDS ORDERED: VANCOMYCIN 1 G PREMIX 200 ML IV SCH (00:15)
[2018-12-28] MEDS ORDERED: PANTOPRAZOLE 80 MG in SODIUM CHLORIDE 0.9% 100 ML IV SCH ×2 (00:15→00:30)
[2018-12-28] MEDS ORDERED: PANTOPRAZOLE SODIUM 40 MG/VIAL IV ONE (00:15)
[2018-12-28] MEDS ORDERED: PIPERACILLIN/TAZ 3.375G PREMIX 50 ML IV ONE (00:15)
[2018-12-28] MEDS ORDERED: ACETAMINOPHEN 650MG SUPP PR ONE (00:30)
[2018-12-28] MEDS: PANTOPRAZOLE 80 MG in SODIUM CHLORIDE 0.9% 100 ML IV SCH ×2 (00:53→11:21)
[2018-12-28 00:56] LABS: HEMATOCRIT. 33.4 % (36.0-48.0); HEMOGLOBIN. 10.8 g/dL (12.0-16.0); MEAN PLATELET VOLUME 9.7 fl (7.4-10.4); PLATELET 217 x1000/uL (130-400); RED BLOOD CELL COUNT 3.84 mill/uL (4.2-5.4); RED CELL DISTRIBUTION WIDTH 15.5 % (11.6-14.6)
[2018-12-28 00:57] LABS: CHLORIDE 107 mEq/L (98-107)
[2018-12-28 01:00] LABS: PARTIAL THROMBOPLASTIN TIME 31.9 sec (23.4-31.0); PROTHROMBIN TIME 10.2 sec (9.1-11.1)
[2018-12-28 01:21] LABS: BG BASE EXCESS 1.9 mmol/L (-2.0-2.0); BG CARBOXYHEMOGLOBIN 0.3 % (0.5-1.5); BG DEOXYHEMOGLOBIN 2.5 % (0.0-5.0); BG FRACTION INSPIRED OXYGEN 50; BG HCO3 ACT 25.9 mmol/L (22.0-26.0); BG METHEMOGLOBIN 0.2 % (0.0-1.5); BG OXYGEN SATURATION 97.5 % (92.0-98.5); BG PCO2 38.4 mmHg (35.0-45.0); BG PH 7.447 (7.350-7.450); BG PO2 95.5 mmHg (75.0-100.0); BG SAMPLE SITE RIGHT RADIAL; BG TIDAL VOLUME(mL) 500 mL; BG TOTAL HEMOGLOBIN 12.6 g/dL (12.0-18.0); BG VENT MODE VENT - A/C; BG VENT RATE 14 set
[2018-12-28 01:53] LABS: PLATELET ESTIMATE NORMAL
[2018-12-28 03:08] LABS: CLARITY URINE CLOUDY (CLEAR); COLOR URINE YELLOW (YELLOW); KETONES URINE TRACE (NEGATIVE); LEUKOCYTE ESTERASE URINE NEGATIVE (NEGATIVE); NITRITE URINE NEGATIVE (NEGATIVE); OCCULT BLOOD URINE 2+ (NEGATIVE); PROTEIN URINE TRACE (NEGATIVE); SPECIFIC GRAVITY URINE 1.038 (1.005-1.030)
[2018-12-28] MEDS ORDERED: PIPERACILLIN/TAZ 3.375G PREMIX 50 ML IV SCH ×6 (10:30→21:00)
[2018-12-28] MEDS ORDERED: ONDANSETRON HCL 4MG/2ML INJ IV PRN (10:30)
[2018-12-28] MEDS ORDERED: IPRATROPIUM/ALBUTEROL 0.5-3(2.5)MG/3ML NEB INH PRN (10:30)
[2018-12-28] MEDS ORDERED: DEXTROSE 50% WATER 50ML SYRINGE IV PRN (11:45)
[2018-12-28] MEDS: BLOOD SUGAR DIAGNOSTIC STRIP TEST SCH ×2 (12:00→17:47)
[2018-12-28] MEDS: METOCLOPRAMIDE HCL 10MG/2ML VIAL IV SCH ×2 (12:00→18:09)
[2018-12-28] MEDS: INSULIN LISPRO (MEDIUM DOSE) 100 UNITS/ML SUBCUT SCH ×2 (12:00→17:47)
[2018-12-28] MEDS ORDERED: VANCOMYCIN 750 MG PREMIX 150 ML IV SCH (15:00)
[2018-12-28 15:23] VITALS: BP 130/65
[2018-12-28 16:00] VITALS: BP 150/61
[2018-12-28 18:00] VITALS: BP 116/57
[2018-12-28 20:00] VITALS: BP 100/52
[2018-12-28 20:07] LABS: HEMATOCRIT 31.5 % (36.0-48.0); MEAN CORPUSCULAR VOLUME 88.3 fL (81.0-99.0); PLATELET 204 x1000/uL (130-400); RED BLOOD CELL COUNT 3.57 mill/uL (4.2-5.4); RED CELL DISTRIBUTION WIDTH 15.3 % (11.6-14.6)
[2018-12-28] MEDS: PIPERACILLIN/TAZ 3.375G PREMIX 50 ML IV SCH (20:53)
[2018-12-28] MEDS: LATANOPROST 0.005% OPHTH DROPS 2.5ML BOTHEYE SCH (20:53)
[2018-12-28] MEDS: PANTOPRAZOLE SODIUM 40 MG/VIAL IV SCH (20:53)
[2018-12-28 22:00] VITALS: BP 117/67
[2018-12-28] MEDS: VANCOMYCIN 500 MG PREMIX 100 ML IV SCH (22:25)
[2018-12-29] VITALS (13 sets, daily range): BP systolic 116–152; BP diastolic 63–102
[2018-12-29] MEDS: PIPERACILLIN/TAZ 3.375G PREMIX 50 ML IV SCH ×4 (01:42→21:14)
[2018-12-29] MEDS: METOCLOPRAMIDE HCL 10MG/2ML VIAL IV SCH ×5 (01:44→23:19)
[2018-12-29] MEDS: BLOOD SUGAR DIAGNOSTIC STRIP TEST SCH ×5 (05:29→23:19)
[2018-12-29] MEDS: INSULIN LISPRO (MEDIUM DOSE) 100 UNITS/ML SUBCUT SCH ×5 (05:36→23:19)
[2018-12-29 07:42] LABS: HEMATOCRIT. 34.5 % (36.0-48.0); HEMOGLOBIN. 10.9 g/dL (12.0-16.0); MEAN CORPUSCULAR HEMOGLOBIN 27.8 pg (28.0-32.0); MEAN CORPUSCULAR VOLUME 88.4 fL (81.0-99.0); RED BLOOD CELL COUNT 3.91 mill/uL (4.2-5.4)
[2018-12-29 08:03] LABS: CHLORIDE 112 mEq/L (98-107)
[2018-12-29] MEDS: PANTOPRAZOLE SODIUM 40 MG/VIAL IV SCH ×2 (08:26→21:14)
[2018-12-29] MEDS ORDERED: PANTOPRAZOLE SODIUM 40 MG/VIAL IV SCH (09:00)
[2018-12-29 09:31] LABS: PLATELET 224 x1000/uL (130-400)
[2018-12-29 09:35] LABS: PLATELET ESTIMATE NORMAL
[2018-12-29] MEDS: VANCOMYCIN 500 MG PREMIX 100 ML IV SCH ×2 (10:58→22:17)
[2018-12-29] MEDS: LEVETIRACETAM 250MG TABLET GT SCH ×2 (10:58→21:14)
[2018-12-29] MEDS: NYSTATIN POWDER 15GM TOP SCH ×2 (12:38→17:36)
[2018-12-29] MEDS: LATANOPROST 0.005% OPHTH DROPS 2.5ML BOTHEYE SCH (21:15)
[2018-12-30] VITALS (12 sets, daily range): BP systolic 109–163; BP diastolic 50–101
[2018-12-30] MEDS: PIPERACILLIN/TAZ 3.375G PREMIX 50 ML IV SCH ×4 (03:39→20:41)
[2018-12-30] MEDS: INSULIN LISPRO (MEDIUM DOSE) 100 UNITS/ML SUBCUT SCH ×4 (05:30→23:34)
[2018-12-30] MEDS: BLOOD SUGAR DIAGNOSTIC STRIP TEST SCH ×4 (05:30→23:33)
[2018-12-30] MEDS: METOCLOPRAMIDE HCL 10MG/2ML VIAL IV SCH ×4 (05:45→23:01)
[2018-12-30 06:24] LABS: BASOPHILS % 0.8 % (0.0-2.0); EOSINOPHILS % 3.5 % (0.0-5.0); HEMOGLOBIN. 11.9 g/dL (12.0-16.0); LYMPHOCYTES % 21.7 % (20.0-50.0); MEAN CORPUSCULAR HEMOGLOBIN 28.3 pg (28.0-32.0); MEAN CORPUSCULAR VOLUME 87.9 fL (81.0-99.0); MONOCYTES % 7.1 % (2.0-8.0); NEUTROPHILS % 66.9 % (40.0-76.0); RED BLOOD CELL COUNT 4.21 mill/uL (4.2-5.4); RED CELL DISTRIBUTION WIDTH 15.5 % (11.6-14.6)
[2018-12-30 08:07] LABS: CHLORIDE 111 mEq/L (98-107)
[2018-12-30] MEDS: PANTOPRAZOLE SODIUM 40 MG/VIAL IV SCH ×2 (08:40→20:41)
[2018-12-30] MEDS: LEVETIRACETAM 250MG TABLET GT SCH ×2 (08:41→20:41)
[2018-12-30] MEDS: VANCOMYCIN 1 G PREMIX 200 ML IV SCH (12:22)
[2018-12-30] MEDS: NYSTATIN POWDER 15GM TOP SCH ×2 (13:08→17:57)
[2018-12-30] MEDS ORDERED: SODIUM CHLORIDE 0.9% 10ML VIAL ONE (15:14)
[2018-12-30] MEDS ORDERED: SIMETHICONE 40 MG/0.6 ML 30ML ONE (15:15)
[2018-12-30] MEDS: LATANOPROST 0.005% OPHTH DROPS 2.5ML BOTHEYE SCH (20:43)
[2018-12-31] VITALS (12 sets, daily range): BP systolic 102–169; BP diastolic 56–107
[2018-12-31] MEDS: PIPERACILLIN/TAZ 3.375G PREMIX 50 ML IV SCH ×4 (02:22→21:13)
[2018-12-31] MEDS: VANCOMYCIN 1 G PREMIX 200 ML IV SCH ×2 (05:07→22:57)
[2018-12-31] MEDS: METOCLOPRAMIDE HCL 10MG/2ML VIAL IV SCH ×4 (05:12→23:00)
[2018-12-31] MEDS: BLOOD SUGAR DIAGNOSTIC STRIP TEST SCH ×4 (05:46→23:12)
[2018-12-31] MEDS: INSULIN LISPRO (MEDIUM DOSE) 100 UNITS/ML SUBCUT SCH ×4 (05:46→23:12)
[2018-12-31] MEDS: LEVETIRACETAM 250MG TABLET GT SCH ×2 (09:00→21:13)
[2018-12-31] MEDS: NYSTATIN POWDER 15GM TOP SCH ×3 (09:19→16:42)
[2018-12-31] MEDS: PANTOPRAZOLE SODIUM 40 MG/VIAL IV SCH (09:19)
[2018-12-31] MEDS ORDERED: MIDAZOLAM HCL 5 MG/5 ML VIAL ONE (12:04)
[2018-12-31] MEDS ORDERED: FENTANYL CITRATE/PF 50MCG/ML 2ML VIAL ONE (12:04)
[2018-12-31] MEDS ORDERED: DIPHENHYDRAMINE 50MG/ML VIAL ONE (12:04)
[2018-12-31] MEDS ORDERED: MIDAZOLAM HCL 5 MG/5 ML VIAL IV PRN (12:40)
[2018-12-31] MEDS ORDERED: FENTANYL CITRATE/PF 50MCG/ML 2ML VIAL IV PRN (12:41)
[2018-12-31] MEDS ORDERED: PANTOPRAZOLE SODIUM 40 MG/VIAL IV SCH (18:00)
[2018-12-31] MEDS: SUCRALFATE 1 G/10 ML UDC PEG SCH ×2 (18:53→23:00)
[2018-12-31] MEDS: LATANOPROST 0.005% OPHTH DROPS 2.5ML BOTHEYE SCH (21:14)
[2018-12-31] MEDS ORDERED: CLONIDINE 0.1MG TABLET GT PRN (22:00)
[2018-12-31] MEDS: HYDRALAZINE HCL 50MG TABLET GT SCH (22:57)
[2019-01-01] VITALS (13 sets, daily range): BP systolic 83–157; BP diastolic 38–74
[2019-01-01] MEDS: LORAZEPAM 2MG/ML CPJ IV PRN (01:40)
[2019-01-01] MEDS: PIPERACILLIN/TAZ 3.375G PREMIX 50 ML IV SCH ×2 (03:52→08:04)
[2019-01-01] MEDS: SUCRALFATE 1 G/10 ML UDC PEG SCH ×4 (05:10→23:43)
[2019-01-01] MEDS: INSULIN LISPRO (MEDIUM DOSE) 100 UNITS/ML SUBCUT SCH ×4 (05:10→23:44)
[2019-01-01] MEDS: METOCLOPRAMIDE HCL 10MG/2ML VIAL IV SCH ×4 (05:10→23:43)
[2019-01-01] MEDS: BLOOD SUGAR DIAGNOSTIC STRIP TEST SCH ×4 (05:10→23:44)
[2019-01-01] MEDS: HYDRALAZINE HCL 50MG TABLET GT SCH ×3 (06:00→21:37)
[2019-01-01 07:19] LABS: HEMATOCRIT. 37.3 % (36.0-48.0); HEMOGLOBIN. 11.8 g/dL (12.0-16.0); MEAN CORPUSCULAR HEMOGLOBIN 27.5 pg (28.0-32.0); MEAN CORPUSCULAR VOLUME 86.9 fL (81.0-99.0); MEAN PLATELET VOLUME 9.7 fl (7.4-10.4); PLATELET 227 x1000/uL (130-400); RED CELL DISTRIBUTION WIDTH 15.4 % (11.6-14.6)
[2019-01-01] MEDS: LEVETIRACETAM 250MG TABLET GT SCH ×2 (08:03→21:37)
[2019-01-01] MEDS: ACETAMINOPHEN 325MG TABLET GT PRN (08:03)
[2019-01-01] MEDS: PANTOPRAZOLE SODIUM 40 MG/VIAL IV SCH (08:04)
[2019-01-01] MEDS: NYSTATIN POWDER 15GM TOP SCH ×3 (08:04→17:34)
[2019-01-01 08:07] LABS: CHLORIDE 109 mEq/L (98-107)
[2019-01-01 10:45] LABS: PLATELET ESTIMATE NORMAL
[2019-01-01] MEDS: MEROPENEM 1,000 MG in SODIUM CHLORIDE 0.9% 100 ML IV SCH ×2 (16:26→21:42)
[2019-01-01] MEDS: LATANOPROST 0.005% OPHTH DROPS 2.5ML BOTHEYE SCH (21:38)
[2019-01-02] VITALS (12 sets, daily range): BP systolic 107–156; BP diastolic 55–90
[2019-01-02] MEDS: HYDRALAZINE HCL 50MG TABLET GT SCH ×3 (05:35→21:41)
[2019-01-02] MEDS: METOCLOPRAMIDE HCL 10MG/2ML VIAL IV SCH ×4 (05:35→23:39)
[2019-01-02] MEDS: SUCRALFATE 1 G/10 ML UDC PEG SCH ×4 (05:36→23:39)
[2019-01-02] MEDS: MEROPENEM 1,000 MG in SODIUM CHLORIDE 0.9% 100 ML IV SCH ×3 (05:37→21:54)
[2019-01-02] MEDS: BLOOD SUGAR DIAGNOSTIC STRIP TEST SCH ×3 (05:49→17:25)
[2019-01-02] MEDS: INSULIN LISPRO (MEDIUM DOSE) 100 UNITS/ML SUBCUT SCH ×4 (05:50→23:46)
[2019-01-02] MEDS: LEVETIRACETAM 250MG TABLET GT SCH ×2 (08:50→21:40)
[2019-01-02] MEDS: PANTOPRAZOLE SODIUM 40 MG/VIAL IV SCH (08:50)
[2019-01-02] MEDS: NYSTATIN POWDER 15GM TOP SCH ×3 (08:54→17:34)
[2019-01-02] MEDS ORDERED: POTASSIUM CHLORIDE 20MEQ/PACKET PO SCH (09:00)
[2019-01-02 10:07] LABS: HEMATOCRIT. 31.4 % (36.0-48.0); HEMOGLOBIN. 9.9 g/dL (12.0-16.0); MEAN CORPUSCULAR HEMOGLOBIN 27.5 pg (28.0-32.0); MEAN CORPUSCULAR VOLUME 86.9 fL (81.0-99.0); MEAN PLATELET VOLUME 9.9 fl (7.4-10.4); PLATELET 153 x1000/uL (130-400); RED BLOOD CELL COUNT 3.61 mill/uL (4.2-5.4); RED CELL DISTRIBUTION WIDTH 15.7 % (11.6-14.6)
[2019-01-02 10:19] LABS: CHLORIDE 111 mEq/L (98-107)
[2019-01-02 10:30] LABS: TOTAL IRON BINDING CAPACITY 293 ug/dL (250-450)
[2019-01-02] MEDS: FERROUS SULFATE 300MG/5ML UDC PO SCH ×2 (12:53→17:34)
[2019-01-02 13:47] LABS: PLATELET ESTIMATE NORMAL
[2019-01-02] MEDS: IPRATROPIUM/ALBUTEROL 0.5-3(2.5)MG/3ML NEB HHN SCH ×2 (13:59→21:01)
[2019-01-02] MEDS: ACETYLCYSTEINE 200MG/ML 20% VIAL 4ML INH SCH (13:59)
[2019-01-02] MEDS: SORBITOL 70% SOLN 30ML PO SCH ×2 (15:11→17:40)
[2019-01-02] MEDS: DOCUSATE SODIUM SUGAR FREE 100MG/10ML UDC NG SCH (15:12)
[2019-01-02] MEDS: LORAZEPAM 2MG/ML CPJ IV PRN (15:23)
[2019-01-02] MEDS: DEXT 5%/0.45% NACL 1000ML 1,000 ML IV SCH (17:37)
[2019-01-02] MEDS: LATANOPROST 0.005% OPHTH DROPS 2.5ML BOTHEYE SCH (21:42)
[2019-01-03] VITALS (15 sets, daily range): BP systolic 102–174; BP diastolic 51–95
[2019-01-03] MEDS: ACETYLCYSTEINE 200MG/ML 20% VIAL 4ML INH SCH ×3 (02:07→21:00)
[2019-01-03] MEDS: IPRATROPIUM/ALBUTEROL 0.5-3(2.5)MG/3ML NEB HHN SCH ×4 (02:08→20:30)
[2019-01-03] MEDS: INSULIN LISPRO (MEDIUM DOSE) 100 UNITS/ML SUBCUT SCH ×3 (06:00→17:25)
[2019-01-03] MEDS: HYDRALAZINE HCL 50MG TABLET GT SCH ×3 (06:00→21:52)
[2019-01-03] MEDS: BLOOD SUGAR DIAGNOSTIC STRIP TEST SCH ×5 (06:00→23:57)
[2019-01-03] MEDS: METOCLOPRAMIDE HCL 10MG/2ML VIAL IV SCH ×4 (06:45→23:57)
[2019-01-03] MEDS: MEROPENEM 1,000 MG in SODIUM CHLORIDE 0.9% 100 ML IV SCH ×3 (06:46→21:52)
[2019-01-03] MEDS: SUCRALFATE 1 G/10 ML UDC PEG SCH ×4 (06:46→23:56)
[2019-01-03] MEDS: DOCUSATE SODIUM SUGAR FREE 100MG/10ML UDC NG SCH (08:31)
[2019-01-03] MEDS: PANTOPRAZOLE SODIUM 40 MG/VIAL IV SCH (08:31)
[2019-01-03] MEDS: FERROUS SULFATE 300MG/5ML UDC PO SCH ×3 (08:31→17:46)
[2019-01-03] MEDS: LEVETIRACETAM 250MG TABLET GT SCH ×2 (08:31→21:52)
[2019-01-03] MEDS: ACETAMINOPHEN 325MG TABLET GT PRN ×2 (08:32→14:08)
[2019-01-03] MEDS: LORAZEPAM 2MG/ML CPJ IV PRN (08:32)
[2019-01-03] MEDS: NYSTATIN POWDER 15GM TOP SCH ×3 (08:32→17:57)
[2019-01-03 09:15] LABS: CHLORIDE 114 mEq/L (98-107)
[2019-01-03 09:18] LABS: HEMATOCRIT. 38.3 % (36.0-48.0); HEMOGLOBIN. 12.4 g/dL (12.0-16.0); MEAN CORPUSCULAR HEMOGLOBIN 28.1 pg (28.0-32.0); MEAN CORPUSCULAR VOLUME 86.5 fL (81.0-99.0); PLATELET 219 x1000/uL (130-400); RED BLOOD CELL COUNT 4.42 mill/uL (4.2-5.4); RED CELL DISTRIBUTION WIDTH 15.7 % (11.6-14.6)
[2019-01-03] MEDS: DEXT 5%/0.45% NACL 1000ML 1,000 ML IV SCH (10:10)
[2019-01-03 13:37] LABS: PLATELET ESTIMATE NORMAL
[2019-01-03] MEDS: ACETAMINOPHEN 650MG SUPP PR PRN (15:28)
[2019-01-03] MEDS: VANCOMYCIN 1 G PREMIX 200 ML IV SCH (17:51)
[2019-01-03] MEDS: LATANOPROST 0.005% OPHTH DROPS 2.5ML BOTHEYE SCH (21:53)
[2019-01-04] VITALS (14 sets, daily range): BP systolic 119–156; BP diastolic 52–94
[2019-01-04] MEDS: INSULIN LISPRO (MEDIUM DOSE) 100 UNITS/ML SUBCUT SCH ×4 (06:00→17:46)
[2019-01-04] MEDS: DEXT 5%/0.45% NACL 1000ML 1,000 ML IV SCH (06:26)
[2019-01-04] MEDS: MEROPENEM 1,000 MG in SODIUM CHLORIDE 0.9% 100 ML IV SCH (06:26)
[2019-01-04] MEDS: SUCRALFATE 1 G/10 ML UDC PEG SCH ×4 (06:27→23:31)
[2019-01-04] MEDS: METOCLOPRAMIDE HCL 10MG/2ML VIAL IV SCH ×4 (06:27→23:31)
[2019-01-04] MEDS: HYDRALAZINE HCL 50MG TABLET GT SCH ×3 (06:27→22:16)
[2019-01-04] MEDS: BLOOD SUGAR DIAGNOSTIC STRIP TEST SCH ×4 (06:28→23:31)
[2019-01-04] MEDS: IPRATROPIUM/ALBUTEROL 0.5-3(2.5)MG/3ML NEB HHN SCH ×3 (08:32→20:22)
[2019-01-04] MEDS: ACETYLCYSTEINE 200MG/ML 20% VIAL 4ML INH SCH (08:33)
[2019-01-04 09:25] LABS: CHLORIDE 114 mEq/L (98-107)
[2019-01-04 09:36] LABS: CREATINE KINASE 255 IU/L (26-192)
[2019-01-04 09:37] LABS: BASOPHILS % 0.3 % (0.0-2.0); EOSINOPHILS % 0.5 % (0.0-5.0); HEMOGLOBIN. 9.5 g/dL (12.0-16.0); LYMPHOCYTES % 16.3 % (20.0-50.0); MEAN CORPUSCULAR HEMOGLOBIN 27.7 pg (28.0-32.0); MEAN CORPUSCULAR VOLUME 87.5 fL (81.0-99.0); MEAN PLATELET VOLUME 9.7 fl (7.4-10.4); MONOCYTES % 6.1 % (2.0-8.0); NEUTROPHILS % 76.8 % (40.0-76.0); PLATELET 191 x1000/uL (130-400); RED BLOOD CELL COUNT 3.42 mill/uL (4.2-5.4); RED CELL DISTRIBUTION WIDTH 15.6 % (11.6-14.6)
[2019-01-04] MEDS: LEVETIRACETAM 250MG TABLET GT SCH ×2 (09:59→20:39)
[2019-01-04] MEDS: FERROUS SULFATE 300MG/5ML UDC PO SCH ×3 (09:59→17:38)
[2019-01-04] MEDS: PANTOPRAZOLE SODIUM 40 MG/VIAL IV SCH (09:59)
[2019-01-04] MEDS: NYSTATIN POWDER 15GM TOP SCH ×3 (10:00→17:38)
[2019-01-04] MEDS: DOCUSATE SODIUM SUGAR FREE 100MG/10ML UDC NG SCH (10:00)
[2019-01-04] MEDS: VANCOMYCIN 1 G PREMIX 200 ML IV SCH (12:00)
[2019-01-04] MEDS ORDERED: CEFTRIAXONE 2 G PREMIX 50 ML IV SCH (13:00)
[2019-01-04] MEDS: CEFTRIAXONE 2 G in DEXTROSE 5% WATER 50 ML IV SCH (13:41)
[2019-01-04] MEDS ORDERED: DEXT 5%/0.45% NACL KCL 20MEQ/L 1,000 ML IV ONE (19:45)
[2019-01-04] MEDS: LATANOPROST 0.005% OPHTH DROPS 2.5ML BOTHEYE SCH (20:39)
[2019-01-04] MEDS: DEXT 5%/0.45% NACL KCL 20MEQ/L 1,000 ML IV SCH (20:39)
[2019-01-04] MEDS: ACETAMINOPHEN 325MG TABLET GT PRN (21:26)
[2019-01-05] VITALS (14 sets, daily range): BP systolic 110–165; BP diastolic 54–95
[2019-01-05] MEDS: IPRATROPIUM/ALBUTEROL 0.5-3(2.5)MG/3ML NEB HHN SCH ×5 (01:18→20:54)
[2019-01-05] MEDS: HYDRALAZINE HCL 50MG TABLET GT SCH ×3 (05:49→21:46)
[2019-01-05] MEDS: SUCRALFATE 1 G/10 ML UDC PEG SCH ×4 (05:49→23:51)
[2019-01-05] MEDS: METOCLOPRAMIDE HCL 10MG/2ML VIAL IV SCH ×4 (05:49→23:51)
[2019-01-05] MEDS: BLOOD SUGAR DIAGNOSTIC STRIP TEST SCH ×4 (05:50→23:51)
[2019-01-05] MEDS: INSULIN LISPRO (MEDIUM DOSE) 100 UNITS/ML SUBCUT SCH ×4 (06:00→17:23)
[2019-01-05] MEDS: FERROUS SULFATE 300MG/5ML UDC PO SCH ×3 (08:31→17:24)
[2019-01-05] MEDS: LEVETIRACETAM 250MG TABLET GT SCH (08:31)
[2019-01-05] MEDS: DOCUSATE SODIUM SUGAR FREE 100MG/10ML UDC NG SCH (08:31)
[2019-01-05] MEDS: PANTOPRAZOLE SODIUM 40 MG/VIAL IV SCH (08:31)
[2019-01-05] MEDS: NYSTATIN POWDER 15GM TOP SCH ×3 (08:32→17:24)
[2019-01-05] MEDS: DEXT 5%/0.45% NACL KCL 20MEQ/L 1,000 ML IV SCH (08:32)
[2019-01-05] MEDS: ACETYLCYSTEINE 200MG/ML 20% VIAL 4ML INH SCH ×2 (09:14→15:18)
[2019-01-05 09:56] LABS: HEMATOCRIT. 33.4 % (36.0-48.0); MEAN CORPUSCULAR HEMOGLOBIN 28.8 pg (28.0-32.0); MEAN CORPUSCULAR VOLUME 87.8 fL (81.0-99.0); RED BLOOD CELL COUNT 3.81 mill/uL (4.2-5.4); RED CELL DISTRIBUTION WIDTH 15.7 % (11.6-14.6)
[2019-01-05 10:02] LABS: CHLORIDE 114 mEq/L (98-107)
[2019-01-05] MEDS: DEXT 5%/0.45% NACL KCL 40MEQ/L 1,000 ML IV SCH (11:26)
[2019-01-05] MEDS: CEFTRIAXONE 2 G in DEXTROSE 5% WATER 50 ML IV SCH (13:19)
[2019-01-05 14:04] LABS: PLATELET 196 x1000/uL (130-400)
[2019-01-05 14:07] LABS: PLATELET ESTIMATE NORMAL
[2019-01-05] MEDS: ACETAMINOPHEN 325MG TABLET GT PRN (20:05)
[2019-01-05] MEDS: LEVETIRACETAM 250 MG in SODIUM CHLORIDE 0.9% 100 ML IV SCH (21:44)
[2019-01-05] MEDS: LATANOPROST 0.005% OPHTH DROPS 2.5ML BOTHEYE SCH (21:44)
[2019-01-06] VITALS (16 sets, daily range): BP systolic 110–165; BP diastolic 47–89
[2019-01-06] MEDS: IPRATROPIUM/ALBUTEROL 0.5-3(2.5)MG/3ML NEB HHN SCH ×4 (00:29→21:23)
[2019-01-06] MEDS: ACETYLCYSTEINE 200MG/ML 20% VIAL 4ML INH SCH (00:30)
[2019-01-06] MEDS: DEXT 5%/0.45% NACL KCL 40MEQ/L 1,000 ML IV SCH ×2 (03:47→12:12)
[2019-01-06] MEDS: INSULIN LISPRO (MEDIUM DOSE) 100 UNITS/ML SUBCUT SCH ×4 (06:00→17:09)
[2019-01-06] MEDS: BLOOD SUGAR DIAGNOSTIC STRIP TEST SCH ×3 (06:00→17:09)
[2019-01-06 06:18] LABS: BASOPHILS % 0.3 % (0.0-2.0); EOSINOPHILS % 2.5 % (0.0-5.0); HEMATOCRIT. 31.3 % (36.0-48.0); HEMOGLOBIN. 10.1 g/dL (12.0-16.0); MEAN CORPUSCULAR HEMOGLOBIN 28.1 pg (28.0-32.0); MEAN CORPUSCULAR VOLUME 86.9 fL (81.0-99.0); MEAN PLATELET VOLUME 9.1 fl (7.4-10.4); NEUTROPHILS % 65.2 % (40.0-76.0); PLATELET 198 x1000/uL (130-400); RED CELL DISTRIBUTION WIDTH 15.6 % (11.6-14.6)
[2019-01-06] MEDS: METOCLOPRAMIDE HCL 10MG/2ML VIAL IV SCH ×3 (06:37→17:08)
[2019-01-06] MEDS: SUCRALFATE 1 G/10 ML UDC PEG SCH ×3 (06:38→17:08)
[2019-01-06] MEDS: HYDRALAZINE HCL 50MG TABLET GT SCH ×3 (06:39→20:51)
[2019-01-06 07:35] LABS: CHLORIDE 113 mEq/L (98-107)
[2019-01-06 07:47] LABS: PHOSPHORUS 1.4 mg/dL (2.5-4.9)
[2019-01-06] MEDS: DOCUSATE SODIUM SUGAR FREE 100MG/10ML UDC NG SCH (08:54)
[2019-01-06] MEDS: PANTOPRAZOLE SODIUM 40 MG/VIAL IV SCH (08:54)
[2019-01-06] MEDS: FERROUS SULFATE 300MG/5ML UDC PO SCH ×3 (08:54→17:08)
[2019-01-06] MEDS: NYSTATIN POWDER 15GM TOP SCH ×3 (08:55→17:08)
[2019-01-06] MEDS: LEVETIRACETAM 250 MG in SODIUM CHLORIDE 0.9% 100 ML IV SCH ×2 (09:56→20:51)
[2019-01-06] MEDS ORDERED: POTASSIUM PHOS,M-BASIC-D-BASIC 20 MMOL in DEXT 5% WATER 243.3333 ML IV SCH (14:00)
[2019-01-06] MEDS: CEFTRIAXONE 2 G in DEXTROSE 5% WATER 50 ML IV SCH (14:24)
[2019-01-06] MEDS: ACETAMINOPHEN 325MG TABLET GT PRN (16:44)
[2019-01-06] MEDS: LATANOPROST 0.005% OPHTH DROPS 2.5ML BOTHEYE SCH (20:51)
[2019-01-07] VITALS (12 sets, daily range): BP systolic 124–170; BP diastolic 63–98
[2019-01-07] MEDS: DEXT 5%/0.45% NACL KCL 40MEQ/L 1,000 ML IV SCH ×3 (02:01→23:48)
[2019-01-07] MEDS: SUCRALFATE 1 G/10 ML UDC PEG SCH ×5 (02:02→23:47)
[2019-01-07] MEDS: METOCLOPRAMIDE HCL 10MG/2ML VIAL IV SCH ×5 (02:02→23:47)
[2019-01-07] MEDS: ACETYLCYSTEINE 200MG/ML 20% VIAL 4ML INH SCH ×2 (02:40→20:25)
[2019-01-07] MEDS: IPRATROPIUM/ALBUTEROL 0.5-3(2.5)MG/3ML NEB HHN SCH ×4 (02:40→20:27)
[2019-01-07] MEDS: BLOOD SUGAR DIAGNOSTIC STRIP TEST SCH ×5 (05:35→23:47)
[2019-01-07] MEDS: HYDRALAZINE HCL 50MG TABLET GT SCH ×3 (05:35→20:55)
[2019-01-07] MEDS: INSULIN LISPRO (MEDIUM DOSE) 100 UNITS/ML SUBCUT SCH ×5 (06:00→23:47)
[2019-01-07 06:26] LABS: BASOPHILS % 0.4 % (0.0-2.0); EOSINOPHILS % 1.8 % (0.0-5.0); HEMATOCRIT. 34.1 % (36.0-48.0); HEMOGLOBIN. 10.9 g/dL (12.0-16.0); LYMPHOCYTES % 18.8 % (20.0-50.0); MEAN CORPUSCULAR HEMOGLOBIN 28.2 pg (28.0-32.0); MEAN CORPUSCULAR VOLUME 87.7 fL (81.0-99.0); MEAN PLATELET VOLUME 9.7 fl (7.4-10.4); MONOCYTES % 7.4 % (2.0-8.0); NEUTROPHILS % 71.6 % (40.0-76.0); PLATELET 219 x1000/uL (130-400); RED BLOOD CELL COUNT 3.89 mill/uL (4.2-5.4); RED CELL DISTRIBUTION WIDTH 15.6 % (11.6-14.6)
[2019-01-07 07:41] LABS: CHLORIDE 113 mEq/L (98-107)
[2019-01-07] MEDS: FERROUS SULFATE 300MG/5ML UDC PO SCH ×3 (09:41→17:23)
[2019-01-07] MEDS: DOCUSATE SODIUM SUGAR FREE 100MG/10ML UDC NG SCH (09:42)
[2019-01-07] MEDS: PANTOPRAZOLE SODIUM 40 MG/VIAL IV SCH (09:42)
[2019-01-07] MEDS: ACETAMINOPHEN 650MG SUPP PR PRN (09:43)
[2019-01-07] MEDS: NYSTATIN POWDER 15GM TOP SCH ×3 (09:43→17:23)
[2019-01-07] MEDS: LEVETIRACETAM 250 MG in SODIUM CHLORIDE 0.9% 100 ML IV SCH ×2 (09:43→21:28)
[2019-01-07] MEDS: CEFTRIAXONE 2 G in DEXTROSE 5% WATER 50 ML IV SCH (13:44)
[2019-01-07] MEDS ORDERED: POTASSIUM PHOS,M-BASIC-D-BASIC 20 MMOL in DEXT 5% WATER 243.3333 ML IV SCH (16:00)
[2019-01-07 16:18] LABS: CLARITY URINE CLEAR (CLEAR); COLOR URINE YELLOW (YELLOW); KETONES URINE TRACE (NEGATIVE); LEUKOCYTE ESTERASE URINE TRACE (NEGATIVE); NITRITE URINE NEGATIVE (NEGATIVE); OCCULT BLOOD URINE 2+ (NEGATIVE); PH URINE 6.5 (4.5-8.0); PROTEIN URINE 1+ (NEGATIVE); SPECIFIC GRAVITY URINE 1.014 (1.005-1.030); UROBILINOGEN URINE 0.2 E.U./dL (0.2-1.0)
[2019-01-07] MEDS: CEFEPIME 2,000 MG in DEXT 5% WATER 100 ML IV SCH (16:59)
[2019-01-07] MEDS: LATANOPROST 0.005% OPHTH DROPS 2.5ML BOTHEYE SCH (20:53)
[2019-01-08] VITALS (12 sets, daily range): BP systolic 108–158; BP diastolic 60–89
[2019-01-08] MEDS: IPRATROPIUM/ALBUTEROL 0.5-3(2.5)MG/3ML NEB HHN SCH ×4 (01:26→20:37)
[2019-01-08] MEDS: SUCRALFATE 1 G/10 ML UDC PEG SCH ×4 (05:28→23:43)
[2019-01-08] MEDS: HYDRALAZINE HCL 50MG TABLET GT SCH ×3 (05:30→20:46)
[2019-01-08] MEDS: METOCLOPRAMIDE HCL 10MG/2ML VIAL IV SCH ×4 (05:30→23:43)
[2019-01-08] MEDS: INSULIN LISPRO (MEDIUM DOSE) 100 UNITS/ML SUBCUT SCH ×4 (05:30→23:51)
[2019-01-08] MEDS: BLOOD SUGAR DIAGNOSTIC STRIP TEST SCH ×4 (05:30→23:52)
[2019-01-08 07:29] LABS: BASOPHILS % 0.6 % (0.0-2.0); EOSINOPHILS % 6.1 % (0.0-5.0); LYMPHOCYTES % 24.7 % (20.0-50.0); MEAN CORPUSCULAR HEMOGLOBIN 27.6 pg (28.0-32.0); MEAN PLATELET VOLUME 9.3 fl (7.4-10.4); MONOCYTES % 10.3 % (2.0-8.0); NEUTROPHILS % 58.3 % (40.0-76.0); PLATELET 226 x1000/uL (130-400); RED BLOOD CELL COUNT 3.31 mill/uL (4.2-5.4); RED CELL DISTRIBUTION WIDTH 15.6 % (11.6-14.6)
[2019-01-08 07:56] LABS: CHLORIDE 115 mEq/L (98-107)
[2019-01-08 08:01] LABS: PHOSPHORUS 2.1 mg/dL (2.5-4.9)
[2019-01-08 08:09] LABS: HEMATOCRIT. 28.8 % (36.0-48.0); HEMOGLOBIN. 9.1 g/dL (12.0-16.0)
[2019-01-08] MEDS: LEVETIRACETAM 250 MG in SODIUM CHLORIDE 0.9% 100 ML IV SCH ×2 (09:34→20:45)
[2019-01-08] MEDS: DOCUSATE SODIUM SUGAR FREE 100MG/10ML UDC NG SCH (09:34)
[2019-01-08] MEDS: FERROUS SULFATE 300MG/5ML UDC PO SCH ×3 (09:34→17:22)
[2019-01-08] MEDS: PANTOPRAZOLE SODIUM 40 MG/VIAL IV SCH (09:35)
[2019-01-08] MEDS: NYSTATIN POWDER 15GM TOP SCH ×3 (09:35→17:22)
[2019-01-08] MEDS: DEXT 5%/0.45% NACL KCL 40MEQ/L 1,000 ML IV SCH (12:57)
[2019-01-08] MEDS ORDERED: POTASSIUM PHOS,M-BASIC-D-BASIC 20 MMOL in DEXT 5% WATER 243.3333 ML IV NR (16:00)
[2019-01-08] MEDS: CEFEPIME 2,000 MG in DEXT 5% WATER 100 ML IV SCH (16:31)
[2019-01-08] MEDS: LATANOPROST 0.005% OPHTH DROPS 2.5ML BOTHEYE SCH (20:48)
[2019-01-09] VITALS (12 sets, daily range): BP systolic 121–174; BP diastolic 63–99
[2019-01-09] MEDS: IPRATROPIUM/ALBUTEROL 0.5-3(2.5)MG/3ML NEB HHN SCH ×4 (01:02→20:10)
[2019-01-09] MEDS: METOCLOPRAMIDE HCL 10MG/2ML VIAL IV SCH ×3 (05:12→18:56)
[2019-01-09] MEDS: BLOOD SUGAR DIAGNOSTIC STRIP TEST SCH ×3 (05:12→18:11)
[2019-01-09] MEDS: INSULIN LISPRO (MEDIUM DOSE) 100 UNITS/ML SUBCUT SCH ×3 (05:12→18:00)
[2019-01-09] MEDS: SUCRALFATE 1 G/10 ML UDC PEG SCH ×3 (05:12→18:45)
[2019-01-09] MEDS: HYDRALAZINE HCL 50MG TABLET GT SCH ×3 (05:13→22:12)
[2019-01-09] MEDS: DEXT 5%/0.45% NACL KCL 40MEQ/L 1,000 ML IV SCH ×2 (05:14→14:16)
[2019-01-09 07:05] LABS: BASOPHILS % 0.7 % (0.0-2.0); EOSINOPHILS % 6.9 % (0.0-5.0); HEMATOCRIT. 29.8 % (36.0-48.0); HEMOGLOBIN. 9.5 g/dL (12.0-16.0); LYMPHOCYTES % 27.9 % (20.0-50.0); MEAN CORPUSCULAR HEMOGLOBIN 27.4 pg (28.0-32.0); MEAN CORPUSCULAR VOLUME 86.5 fL (81.0-99.0); MEAN PLATELET VOLUME 9.7 fl (7.4-10.4); MONOCYTES % 8.9 % (2.0-8.0); NEUTROPHILS % 55.6 % (40.0-76.0); PLATELET 262 x1000/uL (130-400); RED BLOOD CELL COUNT 3.45 mill/uL (4.2-5.4); RED CELL DISTRIBUTION WIDTH 15.5 % (11.6-14.6)
[2019-01-09] MEDS: DOCUSATE SODIUM SUGAR FREE 100MG/10ML UDC NG SCH (09:29)
[2019-01-09] MEDS: FERROUS SULFATE 300MG/5ML UDC PO SCH ×3 (09:29→18:45)
[2019-01-09] MEDS: PANTOPRAZOLE SODIUM 40 MG/VIAL IV SCH (09:29)
[2019-01-09] MEDS: NYSTATIN POWDER 15GM TOP SCH ×3 (09:29→16:39)
[2019-01-09] MEDS: LEVETIRACETAM 250 MG in SODIUM CHLORIDE 0.9% 100 ML IV SCH ×2 (09:29→22:55)
[2019-01-09 10:12] LABS: CHLORIDE 116 mEq/L (98-107)
[2019-01-09 10:24] LABS: PHOSPHORUS 2.5 mg/dL (2.5-4.9)
[2019-01-09] MEDS: CEFEPIME 2,000 MG in DEXT 5% WATER 100 ML IV SCH (16:39)
[2019-01-09] MEDS: LATANOPROST 0.005% OPHTH DROPS 2.5ML BOTHEYE SCH (22:12)
[2019-01-10] VITALS (13 sets, daily range): BP systolic 136–171; BP diastolic 55–81
[2019-01-10] MEDS: METOCLOPRAMIDE HCL 10MG/2ML VIAL IV SCH ×5 (00:13→21:18)
[2019-01-10] MEDS: SUCRALFATE 1 G/10 ML UDC PEG SCH ×4 (00:13→16:52)
[2019-01-10] MEDS: IPRATROPIUM/ALBUTEROL 0.5-3(2.5)MG/3ML NEB HHN SCH ×3 (01:45→22:06)
[2019-01-10] MEDS: DEXT 5%/0.45% NACL KCL 40MEQ/L 1,000 ML IV SCH ×2 (03:45→13:27)
[2019-01-10] MEDS: HYDRALAZINE HCL 50MG TABLET GT SCH ×3 (05:23→21:10)
[2019-01-10] MEDS: BLOOD SUGAR DIAGNOSTIC STRIP TEST SCH ×4 (05:23→18:00)
[2019-01-10] MEDS: INSULIN LISPRO (MEDIUM DOSE) 100 UNITS/ML SUBCUT SCH ×4 (05:41→18:00)
[2019-01-10 06:57] LABS: HEMATOCRIT. 31.5 % (36.0-48.0); HEMOGLOBIN. 10.1 g/dL (12.0-16.0); MEAN CORPUSCULAR HEMOGLOBIN 27.8 pg (28.0-32.0); MEAN CORPUSCULAR VOLUME 86.4 fL (81.0-99.0); MEAN PLATELET VOLUME 9.8 fl (7.4-10.4); PLATELET 289 x1000/uL (130-400); RED BLOOD CELL COUNT 3.64 mill/uL (4.2-5.4); RED CELL DISTRIBUTION WIDTH 15.2 % (11.6-14.6)
[2019-01-10 07:10] LABS: CHLORIDE 113 mEq/L (98-107)
[2019-01-10] MEDS: FERROUS SULFATE 300MG/5ML UDC PO SCH ×3 (08:17→16:52)
[2019-01-10] MEDS: PANTOPRAZOLE SODIUM 40 MG/VIAL IV SCH (08:17)
[2019-01-10] MEDS: NYSTATIN POWDER 15GM TOP SCH ×3 (08:17→16:52)
[2019-01-10] MEDS: DOCUSATE SODIUM SUGAR FREE 100MG/10ML UDC NG SCH (08:17)
[2019-01-10 09:41] LABS: PLATELET ESTIMATE NORMAL
[2019-01-10] MEDS: LEVETIRACETAM 250 MG in SODIUM CHLORIDE 0.9% 100 ML IV SCH ×2 (09:55→21:04)
[2019-01-10] MEDS: CEFEPIME 2,000 MG in DEXT 5% WATER 100 ML IV SCH (15:45)
[2019-01-10] MEDS: LATANOPROST 0.005% OPHTH DROPS 2.5ML BOTHEYE SCH (20:33)
== END 2019-01-10 22:30 | DRG 870 ==
LOC: ER 00:05 → 5EST 01:18 → EDBEDREQ 01:31 → EDBEDREQTM 01:31 → ENRESERV 13:07
PROVIDERS: ADMIT Internal Medicine; ATTEND Internal Medicine
PROC: 5A1955Z Respiratory Ventilation, Greater than 96 Consecutive Hours (ICD-10-PCS; principal; 2018-12-28)
PROC: 02HV33Z Insertion of Infusion Device into Superior Vena Cava, Percutaneous Approach (ICD-10-PCS; 2018-12-29)
PROC: 0D20XUZ Change Feeding Device in Upper Intestinal Tract, External Approach (ICD-10-PCS; 2018-12-31)
PROC: 0DJ08ZZ Inspection of Upper Intestinal Tract, Via Natural or Artificial Opening Endoscopic (ICD-10-PCS; 2018-12-31)
PROC: 0D20XUZ Change Feeding Device in Upper Intestinal Tract, External Approach (ICD-10-PCS; 2019-01-10)
DX: A41.9 Sepsis, unspecified organism (principal); J96.21 Acute and chronic respiratory failure with hypoxia; J15.5 Pneumonia due to Escherichia coli; J69.0 Pneumonitis due to inhalation of food and vomit; J95.851 Ventilator associated pneumonia; G93.40 Encephalopathy, unspecified; E44.0 Moderate protein-calorie malnutrition; K92.0 Hematemesis; K94.23 Gastrostomy malfunction; T85.528A Displacement of other gastrointestinal prosthetic devices, implants and grafts, initial encounter; Z99.11 Dependence on respirator [ventilator] status; I95.9 Hypotension, unspecified; I10 Essential (primary) hypertension; R13.10 Dysphagia, unspecified; I25.10 Atherosclerotic heart disease of native coronary artery without angina pectoris; B95.2 Enterococcus as the cause of diseases classified elsewhere; E11.51 Type 2 diabetes mellitus with diabetic peripheral angiopathy without gangrene; Z16.21 Resistance to vancomycin; K21.9 Gastro-esophageal reflux disease without esophagitis; E87.6 Hypokalemia; D50.9 Iron deficiency anemia, unspecified; D63.8 Anemia in other chronic diseases classified elsewhere; F03.90 Unspecified dementia, unspecified severity, without behavioral disturbance, psychotic disturbance, mood disturbance, and anxiety; G40.909 Epilepsy, unspecified, not intractable, without status epilepticus; K59.00 Constipation, unspecified; Y83.8 Other surgical procedures as the cause of abnormal reaction of the patient, or of later complication, without mention of misadventure at the time of the procedure; Z93.0 Tracheostomy status; Z79.82 Long term (current) use of aspirin; Z79.899 Other long term (current) drug therapy; Z87.440 Personal history of urinary (tract) infections; Z86.73 Personal history of transient ischemic attack (TIA), and cerebral infarction without residual deficits; Z87.11 Personal history of peptic ulcer disease; Y92.89 Other specified places as the place of occurrence of the external cause; Z68.32 Body mass index [BMI] 32.0-32.9, adult
CPT/HCPCS: 36415; 36569; 36600; 71045; 74018; 76937; 80048; 80202; 82270; 82375; 82550; 82728; 82805; 82962; 83540; 83550; 83605; 83735; 83880; 84100; 84145; 84484; 85027; 87070; 87077; 87186; 93005; 93970; 94003; 94640; 96365; 96375; 99291; A6261; C1725; C1893; C9113; J0692; J0696; J1200; J1953; J2060; J2185; J2250; J2543; J2765; J3010; J3370; J3490; J7050; J7060; J7608; J7620; A4315

== ENCOUNTER 2019-04-08 00:48 | Inpatient (IN) | payer MEDICARE, BC, MEDICAID ==
[2019-04-08] VITALS (12 sets, daily range): BP systolic 94–131; BP diastolic 40–78
[~2019-04-08] VITALS: Ht 160 cm; Wt 84.8 kg
[~2019-04-08 00:48] MED LIST changes: -ASPI-1159 GT; +ASPI-1393 GT
[2019-04-08] MEDS ORDERED: ACETAMINOPHEN 650MG SUPP PR ONE (01:15)
[2019-04-08] MEDS ORDERED: SODIUM CHLORIDE 0.9% 1000ML BAG (SEPSIS BOLUS) IV ONE (02:00)
[2019-04-08 03:02] LABS: BG BASE EXCESS -0.5 mmol/L (-2.0-2.0); BG CARBOXYHEMOGLOBIN 0.3 % (0.5-1.5); BG DEOXYHEMOGLOBIN 2.5 % (0.0-5.0); BG FRACTION INSPIRED OXYGEN 40; BG HCO3 ACT 23.9 mmol/L (22.0-26.0); BG METHEMOGLOBIN 0.2 % (0.0-1.5); BG OXYGEN SATURATION 97.5 % (92.0-98.5); BG PH 7.416 (7.350-7.450); BG PO2 104.6 mmHg (75.0-100.0); BG SAMPLE SITE RIGHT RADIAL; BG TIDAL VOLUME(mL) 500 mL; BG TOTAL HEMOGLOBIN 9.9 g/dL (12.0-18.0); BG VENT MODE VENT - A/C; BG VENT RATE 12 set
[2019-04-08 03:24] LABS: BASOPHILS % 0.4 % (0.0-2.0); EOSINOPHILS % 0.1 % (0.0-5.0); HEMATOCRIT. 38.1 % (36.0-48.0); HEMOGLOBIN. 11.9 g/dL (12.0-16.0); LYMPHOCYTES % 7.3 % (20.0-50.0); MEAN CORPUSCULAR HEMOGLOBIN 28.3 pg (28.0-32.0); MEAN CORPUSCULAR VOLUME 90.3 fL (81.0-99.0); MEAN PLATELET VOLUME 9.8 fl (7.4-10.4); MONOCYTES % 5.9 % (2.0-8.0); NEUTROPHILS % 86.3 % (40.0-76.0); PLATELET 194 x1000/uL (130-400); RED BLOOD CELL COUNT 4.22 mill/uL (4.2-5.4); RED CELL DISTRIBUTION WIDTH 15.9 % (11.6-14.6)
[2019-04-08 03:30] LABS: CHLORIDE 113 mEq/L (98-107)
[2019-04-08 03:33] LABS: PARTIAL THROMBOPLASTIN TIME 27.9 sec (23.4-31.0); PROTHROMBIN TIME 10.8 sec (9.6-11.0)
[2019-04-08] MEDS ORDERED: PIPERACILLIN/TAZOBACTAM 3.375GM/50ML PREMIX IV ONE (03:45)
[2019-04-08] MEDS ORDERED: VANCOMYCIN 1 G PREMIX 200 ML IV SCH (03:45)
[2019-04-08] MEDS ORDERED: FAMOTIDINE 20MG/2ML VIAL IV NR (04:00)
[2019-04-08] MEDS ORDERED: PIPERACILLIN/TAZ 3.375G PREMIX 50 ML IV NR (04:00)
[2019-04-08] MEDS ORDERED: LORAZEPAM 2MG/ML CPJ IV PRN (06:30)
[2019-04-08] MEDS ORDERED: ONDANSETRON HCL 4MG/2ML INJ IV PRN (06:30)
[2019-04-08 06:48] LABS: CLARITY URINE CLEAR (CLEAR); COLOR URINE YELLOW (YELLOW); KETONES URINE NEGATIVE (NEGATIVE); LEUKOCYTE ESTERASE URINE TRACE (NEGATIVE); NITRITE URINE NEGATIVE (NEGATIVE); OCCULT BLOOD URINE 1+ (NEGATIVE); PROTEIN URINE TRACE (NEGATIVE); SPECIFIC GRAVITY URINE 1.032 (1.005-1.030)
[2019-04-08] MEDS: DEXT 5%/0.45% NACL 1000ML 1,000 ML IV SCH (10:59)
[2019-04-08] MEDS ORDERED: IPRATROPIUM/ALBUTEROL 0.5-3(2.5)MG/3ML NEB HHN PRN (14:45)
[2019-04-08] MEDS: LEVETIRACETAM 500 MG in SODIUM CHLORIDE 0.9% 100 ML IV SCH (17:40)
[2019-04-08] MEDS: VANCOMYCIN 1 G PREMIX 200 ML IV SCH (17:40)
[2019-04-08] MEDS: IPRATROPIUM/ALBUTEROL 0.5-3(2.5)MG/3ML NEB HHN SCH (19:42)
[2019-04-09] VITALS (11 sets, daily range): BP systolic 103–144; BP diastolic 57–87
[2019-04-09] MEDS: LEVETIRACETAM 500 MG in SODIUM CHLORIDE 0.9% 100 ML IV SCH ×3 (00:12→23:11)
[2019-04-09] MEDS: DEXT 5%/0.45% NACL 1000ML 1,000 ML IV SCH ×2 (00:13→19:04)
[2019-04-09] MEDS: IPRATROPIUM/ALBUTEROL 0.5-3(2.5)MG/3ML NEB HHN SCH ×4 (01:57→19:50)
[2019-04-09] MEDS: VANCOMYCIN 1 G PREMIX 200 ML IV SCH (06:00)
[2019-04-09 07:26] LABS: BASOPHILS % 0.4 % (0.0-2.0); EOSINOPHILS % 3.1 % (0.0-5.0); HEMATOCRIT. 27.6 % (36.0-48.0); HEMOGLOBIN. 8.9 g/dL (12.0-16.0); MEAN CORPUSCULAR HEMOGLOBIN 28.6 pg (28.0-32.0); MEAN CORPUSCULAR VOLUME 88.8 fL (81.0-99.0); MEAN PLATELET VOLUME 10.3 fl (7.4-10.4); NEUTROPHILS % 67.5 % (40.0-76.0); PLATELET 172 x1000/uL (130-400); RED BLOOD CELL COUNT 3.11 mill/uL (4.2-5.4); RED CELL DISTRIBUTION WIDTH 15.5 % (11.6-14.6)
[2019-04-09 07:34] LABS: CHLORIDE 115 mEq/L (98-107)
[2019-04-09] MEDS: ACETYLCYSTEINE 100MG/ML 10% VIAL 4ML INH SCH ×2 (08:05→14:11)
[2019-04-09] MEDS: VANCOMYCIN 750 MG PREMIX 150 ML IV SCH (19:03)
[2019-04-10] VITALS (12 sets, daily range): BP systolic 102–181; BP diastolic 50–89
[2019-04-10] MEDS: DEXT 5%/0.45% NACL 1000ML 1,000 ML IV SCH ×2 (01:00→14:40)
[2019-04-10] MEDS: IPRATROPIUM/ALBUTEROL 0.5-3(2.5)MG/3ML NEB HHN SCH ×4 (02:07→20:00)
[2019-04-10] MEDS: VANCOMYCIN 750 MG PREMIX 150 ML IV SCH ×2 (05:53→18:00)
[2019-04-10 06:26] LABS: CHLORIDE 112 mEq/L (98-107)
[2019-04-10 06:26] LABS: BASOPHILS % 0.4 % (0.0-2.0); EOSINOPHILS % 3.2 % (0.0-5.0); HEMATOCRIT. 27.5 % (36.0-48.0); HEMOGLOBIN. 8.9 g/dL (12.0-16.0); LYMPHOCYTES % 19.8 % (20.0-50.0); MEAN CORPUSCULAR HEMOGLOBIN 28.6 pg (28.0-32.0); MEAN CORPUSCULAR VOLUME 87.9 fL (81.0-99.0); MONOCYTES % 6.6 % (2.0-8.0); PLATELET 190 x1000/uL (130-400); RED BLOOD CELL COUNT 3.12 mill/uL (4.2-5.4); RED CELL DISTRIBUTION WIDTH 15.6 % (11.6-14.6)
[2019-04-10] MEDS: ACETYLCYSTEINE 100MG/ML 10% VIAL 4ML INH SCH (07:54)
[2019-04-10] MEDS: LEVETIRACETAM 500 MG in SODIUM CHLORIDE 0.9% 100 ML IV SCH ×2 (08:32→21:00)
[2019-04-10] MEDS ORDERED: POTASSIUM CHLORIDE INJ 40 MEQ in DEXT 5% WATER 250 ML IV SCH (10:00)
[2019-04-11] VITALS (13 sets, daily range): BP systolic 111–175; BP diastolic 54–91
[2019-04-11] MEDS: IPRATROPIUM/ALBUTEROL 0.5-3(2.5)MG/3ML NEB HHN SCH ×4 (02:24→20:32)
[2019-04-11] MEDS: ACETYLCYSTEINE 100MG/ML 10% VIAL 4ML INH SCH ×2 (02:24→17:49)
[2019-04-11] MEDS: DEXT 5%/0.45% NACL 1000ML 1,000 ML IV SCH ×2 (03:40→16:48)
[2019-04-11] MEDS: VANCOMYCIN 750 MG PREMIX 150 ML IV SCH ×2 (05:03→08:57)
[2019-04-11 07:19] LABS: CHLORIDE 113 mEq/L (98-107)
[2019-04-11 07:32] LABS: VANCOMYCIN TROUGH 13.9 ug/mL (5.0-10.0)
[2019-04-11] MEDS: LEVETIRACETAM 500 MG in SODIUM CHLORIDE 0.9% 100 ML IV SCH ×2 (08:50→20:31)
[2019-04-11 09:30] LABS: BASOPHILS % 0.3 % (0.0-2.0); EOSINOPHILS % 2.1 % (0.0-5.0); HEMATOCRIT. 29.6 % (36.0-48.0); HEMOGLOBIN. 9.5 g/dL (12.0-16.0); LYMPHOCYTES % 17.8 % (20.0-50.0); MEAN CORPUSCULAR HEMOGLOBIN 27.9 pg (28.0-32.0); MEAN CORPUSCULAR VOLUME 87.5 fL (81.0-99.0); MEAN PLATELET VOLUME 9.7 fl (7.4-10.4); MONOCYTES % 5.4 % (2.0-8.0); NEUTROPHILS % 74.4 % (40.0-76.0); PLATELET 224 x1000/uL (130-400); RED BLOOD CELL COUNT 3.39 mill/uL (4.2-5.4); RED CELL DISTRIBUTION WIDTH 15.5 % (11.6-14.6)
[2019-04-12] VITALS (7 sets, daily range): BP systolic 152–165; BP diastolic 81–98
[2019-04-12] MEDS: VANCOMYCIN 1 G PREMIX 200 ML IV SCH ×2 (00:08→17:44)
[2019-04-12] MEDS: ACETYLCYSTEINE 100MG/ML 10% VIAL 4ML INH SCH ×3 (00:24→12:50)
[2019-04-12] MEDS: IPRATROPIUM/ALBUTEROL 0.5-3(2.5)MG/3ML NEB HHN SCH ×8 (00:24→20:00)
[2019-04-12] MEDS: DEXT 5%/0.45% NACL 1000ML 1,000 ML IV SCH ×2 (05:42→21:26)
[2019-04-12 08:06] LABS: BASOPHILS % 0.5 % (0.0-2.0); EOSINOPHILS % 3.9 % (0.0-5.0); HEMATOCRIT. 29.1 % (36.0-48.0); HEMOGLOBIN. 9.3 g/dL (12.0-16.0); MEAN CORPUSCULAR HEMOGLOBIN 28.3 pg (28.0-32.0); MEAN CORPUSCULAR VOLUME 88.3 fL (81.0-99.0); MEAN PLATELET VOLUME 9.7 fl (7.4-10.4); MONOCYTES % 7.6 % (2.0-8.0); PLATELET 210 x1000/uL (130-400); RED CELL DISTRIBUTION WIDTH 15.2 % (11.6-14.6)
[2019-04-12 08:38] LABS: CHLORIDE 112 mEq/L (98-107)
[2019-04-12] MEDS: LEVETIRACETAM 500 MG in SODIUM CHLORIDE 0.9% 100 ML IV SCH ×2 (09:09→21:26)
[2019-04-12] MEDS ORDERED: POTASSIUM CHLORIDE INJ 40 MEQ in DEXT 5% WATER 250 ML IV NR (12:00)
[2019-04-13] VITALS (11 sets, daily range): BP systolic 101–183; BP diastolic 57–96
[2019-04-13] MEDS: IPRATROPIUM/ALBUTEROL 0.5-3(2.5)MG/3ML NEB HHN SCH ×6 (04:05→20:16)
[2019-04-13 07:58] LABS: BASOPHILS % 0.6 % (0.0-2.0); EOSINOPHILS % 1.4 % (0.0-5.0); HEMATOCRIT. 30.8 % (36.0-48.0); HEMOGLOBIN. 9.8 g/dL (12.0-16.0); LYMPHOCYTES % 9.1 % (20.0-50.0); MEAN CORPUSCULAR HEMOGLOBIN 28.3 pg (28.0-32.0); MEAN CORPUSCULAR VOLUME 88.7 fL (81.0-99.0); MEAN PLATELET VOLUME 9.9 fl (7.4-10.4); MONOCYTES % 5.2 % (2.0-8.0); NEUTROPHILS % 83.7 % (40.0-76.0); PLATELET 239 x1000/uL (130-400); RED BLOOD CELL COUNT 3.47 mill/uL (4.2-5.4); RED CELL DISTRIBUTION WIDTH 15.3 % (11.6-14.6)
[2019-04-13 08:05] LABS: CHLORIDE 111 mEq/L (98-107)
[2019-04-13] MEDS: ACETYLCYSTEINE 100MG/ML 10% VIAL 4ML INH SCH ×3 (08:41→12:42)
[2019-04-13] MEDS: LEVETIRACETAM 500 MG in SODIUM CHLORIDE 0.9% 100 ML IV SCH ×2 (14:29→20:45)
[2019-04-13] MEDS: DEXT 5%/0.45% NACL 1000ML 1,000 ML IV SCH ×2 (14:30→20:45)
[2019-04-13] MEDS: VANCOMYCIN 1 G PREMIX 200 ML IV SCH (15:36)
[2019-04-14] VITALS (12 sets, daily range): BP systolic 104–166; BP diastolic 56–98
[2019-04-14] MEDS: ACETYLCYSTEINE 100MG/ML 10% VIAL 4ML INH SCH ×4 (00:06→23:53)
[2019-04-14] MEDS: IPRATROPIUM/ALBUTEROL 0.5-3(2.5)MG/3ML NEB HHN SCH ×7 (00:06→23:53)
[2019-04-14] MEDS: VANCOMYCIN 1 G PREMIX 200 ML IV SCH (05:22)
[2019-04-14] MEDS: LEVETIRACETAM 500 MG in SODIUM CHLORIDE 0.9% 100 ML IV SCH ×2 (08:46→22:17)
[2019-04-14] MEDS: ACETAMINOPHEN 650MG SUPP PR PRN (11:13)
[2019-04-14] MEDS: DEXT 5%/0.45% NACL 1000ML 1,000 ML IV SCH (15:18)
[2019-04-14 16:53] LABS: BASOPHILS % 0.3 % (0.0-2.0); HEMATOCRIT. 28.4 % (36.0-48.0); HEMOGLOBIN. 8.9 g/dL (12.0-16.0); LYMPHOCYTES % 10.2 % (20.0-50.0); MEAN CORPUSCULAR HEMOGLOBIN 28.4 pg (28.0-32.0); MEAN CORPUSCULAR VOLUME 90.8 fL (81.0-99.0); MEAN PLATELET VOLUME 9.5 fl (7.4-10.4); NEUTROPHILS % 80.5 % (40.0-76.0); PLATELET 222 x1000/uL (130-400); RED BLOOD CELL COUNT 3.13 mill/uL (4.2-5.4); RED CELL DISTRIBUTION WIDTH 15.4 % (11.6-14.6)
[2019-04-14 17:01] LABS: CHLORIDE 111 mEq/L (98-107)
[2019-04-14] MEDS: RACEPINEPHRINE 2.25% 0.5ML NEB VIAL HHN PRN (17:43)
[2019-04-15] VITALS (12 sets, daily range): BP systolic 123–161; BP diastolic 65–90
[2019-04-15] MEDS: VANCOMYCIN 1 G PREMIX 200 ML IV SCH ×2 (00:05→18:57)
[2019-04-15] MEDS: IPRATROPIUM/ALBUTEROL 0.5-3(2.5)MG/3ML NEB HHN SCH ×6 (04:40→19:49)
[2019-04-15] MEDS: DEXT 5%/0.45% NACL 1000ML 1,000 ML IV SCH ×2 (04:48→18:57)
[2019-04-15] MEDS ORDERED: POTASSIUM CHLORIDE INJ 40 MEQ in DEXT 5%/0.9% NACL 1,000 ML IV STA (07:38)
[2019-04-15] MEDS: LEVETIRACETAM 500 MG in SODIUM CHLORIDE 0.9% 100 ML IV SCH ×2 (07:50→21:31)
[2019-04-15] MEDS ORDERED: DEXT 5% WATER + KCL 40MEQ/L 250 ML IV ONE (08:00)
[2019-04-15] MEDS: ACETYLCYSTEINE 100MG/ML 10% VIAL 4ML INH SCH ×2 (08:30→16:50)
[2019-04-15] MEDS ORDERED: POTASSIUM CHLORIDE INJ 40 MEQ in DEXT 5% WATER 250 ML IV NR (09:00)
[2019-04-16] VITALS (12 sets, daily range): BP systolic 99–164; BP diastolic 52–112
[2019-04-16] MEDS: ACETYLCYSTEINE 100MG/ML 10% VIAL 4ML INH SCH ×3 (00:10→16:48)
[2019-04-16] MEDS: IPRATROPIUM/ALBUTEROL 0.5-3(2.5)MG/3ML NEB HHN SCH ×6 (00:10→20:17)
[2019-04-16] MEDS: DEXT 5%/0.45% NACL 1000ML 1,000 ML IV SCH ×2 (04:28→18:02)
[2019-04-16 07:32] LABS: BASOPHILS % 0.5 % (0.0-2.0); EOSINOPHILS % 3.8 % (0.0-5.0); HEMATOCRIT. 29.4 % (36.0-48.0); HEMOGLOBIN. 9.3 g/dL (12.0-16.0); LYMPHOCYTES % 13.6 % (20.0-50.0); MEAN CORPUSCULAR HEMOGLOBIN 28.2 pg (28.0-32.0); MEAN CORPUSCULAR VOLUME 89.3 fL (81.0-99.0); MEAN PLATELET VOLUME 9.1 fl (7.4-10.4); MONOCYTES % 8.4 % (2.0-8.0); NEUTROPHILS % 73.7 % (40.0-76.0); PLATELET 273 x1000/uL (130-400); RED BLOOD CELL COUNT 3.29 mill/uL (4.2-5.4); RED CELL DISTRIBUTION WIDTH 15.5 % (11.6-14.6)
[2019-04-16 07:51] LABS: CHLORIDE 113 mEq/L (98-107)
[2019-04-16] MEDS: LEVETIRACETAM 500 MG in SODIUM CHLORIDE 0.9% 100 ML IV SCH ×2 (08:20→22:06)
[2019-04-16] MEDS ORDERED: BARIUM SULFATE 176 GM SUSP.RECON ONE (09:58)
[2019-04-16] MEDS ORDERED: POTASSIUM CHLORIDE INJ 40 MEQ in DEXT 5% WATER 250 ML IV NR (10:30)
[2019-04-16] MEDS: VANCOMYCIN 1 G PREMIX 200 ML IV SCH (11:24)
[2019-04-16] MEDS: NYSTATIN POWDER 15GM TOP SCH ×2 (13:00→18:03)
[2019-04-17] VITALS (22 sets, daily range): BP systolic 117–175; BP diastolic 56–130
[2019-04-17] MEDS: IPRATROPIUM/ALBUTEROL 0.5-3(2.5)MG/3ML NEB HHN SCH ×6 (00:51→22:24)
[2019-04-17] MEDS: VANCOMYCIN 1 G PREMIX 200 ML IV SCH (05:38)
[2019-04-17] MEDS: DEXT 5%/0.45% NACL 1000ML 1,000 ML IV SCH ×2 (05:39→21:51)
[2019-04-17] MEDS: NYSTATIN POWDER 15GM TOP SCH ×3 (09:00→17:23)
[2019-04-17] MEDS: LEVETIRACETAM 500 MG in SODIUM CHLORIDE 0.9% 100 ML IV SCH ×2 (10:46→21:51)
[2019-04-17] MEDS: ACETAMINOPHEN 650MG SUPP PR PRN (10:47)
[2019-04-17 12:35] LABS: CHLORIDE 115 mEq/L (98-107)
[2019-04-17] MEDS: RACEPINEPHRINE 2.25% 0.5ML NEB VIAL HHN PRN (13:17)
[2019-04-17] MEDS: PIPERACILLIN/TAZ 3.375G PREMIX 50 ML IV SCH ×2 (14:10→21:51)
[2019-04-17 19:43] LABS: BASOPHILS % 0.6 % (0.0-2.0); EOSINOPHILS % 2.5 % (0.0-5.0); HEMATOCRIT. 29.1 % (36.0-48.0); HEMOGLOBIN. 9.4 g/dL (12.0-16.0); LYMPHOCYTES % 16.7 % (20.0-50.0); MEAN CORPUSCULAR HEMOGLOBIN 28.3 pg (28.0-32.0); MEAN PLATELET VOLUME 8.3 fl (7.4-10.4); MONOCYTES % 10.5 % (2.0-8.0); NEUTROPHILS % 69.7 % (40.0-76.0); PLATELET 255 x1000/uL (130-400); RED BLOOD CELL COUNT 3.31 mill/uL (4.2-5.4); RED CELL DISTRIBUTION WIDTH 15.3 % (11.6-14.6)
[2019-04-18] VITALS (16 sets, daily range): BP systolic 128–180; BP diastolic 55–131
[2019-04-18] MEDS: IPRATROPIUM/ALBUTEROL 0.5-3(2.5)MG/3ML NEB HHN SCH ×6 (00:12→19:59)
[2019-04-18] MEDS: PIPERACILLIN/TAZ 3.375G PREMIX 50 ML IV SCH ×4 (02:08→20:15)
[2019-04-18] MEDS: VANCOMYCIN 1 G PREMIX 200 ML IV SCH (02:08)
[2019-04-18] MEDS: LEVETIRACETAM 500 MG in SODIUM CHLORIDE 0.9% 100 ML IV SCH ×2 (08:20→22:02)
[2019-04-18] MEDS: NYSTATIN POWDER 15GM TOP SCH ×3 (08:21→18:26)
[2019-04-18] MEDS: DEXT 5%/0.45% NACL 1000ML 1,000 ML IV SCH (13:21)
[2019-04-18] MEDS ORDERED: POTASSIUM CHLORIDE INJ 40 MEQ in DEXT 5% WATER 250 ML IV SCH (14:00)
[2019-04-18] MEDS: RACEPINEPHRINE 2.25% 0.5ML NEB VIAL HHN PRN (16:54)
[2019-04-18] MEDS: HYDRALAZINE 20MG/ML VIAL IV PRN (20:56)
[2019-04-18] MEDS: DEXT 10% WATER 1,000 ML IV SCH (23:23)
[2019-04-19] VITALS (15 sets, daily range): BP systolic 111–164; BP diastolic 54–113
[2019-04-19] MEDS: RACEPINEPHRINE 2.25% 0.5ML NEB VIAL HHN PRN (00:09)
[2019-04-19] MEDS: IPRATROPIUM/ALBUTEROL 0.5-3(2.5)MG/3ML NEB HHN SCH ×6 (00:23→20:08)
[2019-04-19] MEDS: PIPERACILLIN/TAZ 3.375G PREMIX 50 ML IV SCH ×4 (01:44→20:26)
[2019-04-19] MEDS: BLOOD SUGAR DIAGNOSTIC STRIP TEST SCH ×4 (06:35→17:36)
[2019-04-19 07:13] LABS: BASOPHILS % 0.7 % (0.0-2.0); EOSINOPHILS % 2.8 % (0.0-5.0); HEMATOCRIT. 27.1 % (36.0-48.0); HEMOGLOBIN. 8.5 g/dL (12.0-16.0); LYMPHOCYTES % 20.1 % (20.0-50.0); MEAN CORPUSCULAR VOLUME 88.6 fL (81.0-99.0); MEAN PLATELET VOLUME 9.1 fl (7.4-10.4); MONOCYTES % 9.5 % (2.0-8.0); NEUTROPHILS % 66.9 % (40.0-76.0); PLATELET 248 x1000/uL (130-400); RED BLOOD CELL COUNT 3.06 mill/uL (4.2-5.4); RED CELL DISTRIBUTION WIDTH 15.2 % (11.6-14.6)
[2019-04-19 07:26] LABS: CHLORIDE 116 mEq/L (98-107)
[2019-04-19] MEDS: NYSTATIN POWDER 15GM TOP SCH ×3 (08:11→17:36)
[2019-04-19] MEDS: LEVETIRACETAM 500 MG in SODIUM CHLORIDE 0.9% 100 ML IV SCH ×2 (08:11→20:26)
[2019-04-19] MEDS: POTASSIUM CHLORIDE INJ 40 MEQ in DEXT 5% WATER 250 ML IV SCH ×2 (09:30→13:36)
[2019-04-19] MEDS: DEXT 10% WATER 1,000 ML IV SCH (17:36)
[2019-04-19] MEDS ORDERED: TOTAL PARENTERAL NUTRITION 1,400 ML IV SCH (21:00)
[2019-04-20] VITALS (21 sets, daily range): BP systolic 102–205; BP diastolic 49–142
[2019-04-20] MEDS: BLOOD SUGAR DIAGNOSTIC STRIP TEST SCH ×4 (00:25→21:01)
[2019-04-20] MEDS: IPRATROPIUM/ALBUTEROL 0.5-3(2.5)MG/3ML NEB HHN SCH ×6 (00:29→20:41)
[2019-04-20] MEDS: RACEPINEPHRINE 2.25% 0.5ML NEB VIAL HHN PRN (00:34)
[2019-04-20] MEDS: PIPERACILLIN/TAZ 3.375G PREMIX 50 ML IV SCH ×4 (03:26→20:54)
[2019-04-20] MEDS: HYDRALAZINE 20MG/ML VIAL IV PRN (04:47)
[2019-04-20 06:24] LABS: BASOPHILS % 0.6 % (0.0-2.0); EOSINOPHILS % 6.4 % (0.0-5.0); HEMATOCRIT. 24.7 % (36.0-48.0); LYMPHOCYTES % 16.6 % (20.0-50.0); MEAN CORPUSCULAR HEMOGLOBIN 28.2 pg (28.0-32.0); MEAN CORPUSCULAR VOLUME 87.1 fL (81.0-99.0); MEAN PLATELET VOLUME 9.1 fl (7.4-10.4); MONOCYTES % 7.2 % (2.0-8.0); NEUTROPHILS % 69.2 % (40.0-76.0); PLATELET 254 x1000/uL (130-400); RED BLOOD CELL COUNT 2.83 mill/uL (4.2-5.4); RED CELL DISTRIBUTION WIDTH 15.3 % (11.6-14.6)
[2019-04-20] MEDS ORDERED: LABETALOL 5MG/ML SYR 20 MG/4 ML SYRINGE IV PRN (08:00)
[2019-04-20] MEDS: LEVETIRACETAM 500 MG in SODIUM CHLORIDE 0.9% 100 ML IV SCH ×2 (08:39→20:56)
[2019-04-20] MEDS: NYSTATIN POWDER 15GM TOP SCH ×3 (08:40→16:21)
[2019-04-20 09:54] LABS: CHLORIDE 116 mEq/L (98-107)
[2019-04-20 10:00] LABS: PHOSPHORUS 1.8 mg/dL (2.5-4.9)
[2019-04-20] MEDS: LORAZEPAM 2MG/ML CPJ IV PRN (13:18)
[2019-04-20] MEDS: KCL 20MEQ/100ML PREMIX 100 ML IV SCH ×2 (13:41→16:21)
[2019-04-20] MEDS ORDERED: VANCOMYCIN 1 G PREMIX 200 ML IV SCH (14:00)
[2019-04-20] MEDS: INSULIN LISPRO 100 UNITS/ML SUBCUT SCH ×2 (18:14→21:00)
[2019-04-20] MEDS ORDERED: TOTAL PARENTERAL NUTRITION 1,400 ML IV SCH (21:00)
[2019-04-21] VITALS (12 sets, daily range): BP systolic 133–183; BP diastolic 58–129
[2019-04-21] MEDS: IPRATROPIUM/ALBUTEROL 0.5-3(2.5)MG/3ML NEB HHN SCH ×6 (00:33→20:50)
[2019-04-21] MEDS: PIPERACILLIN/TAZ 3.375G PREMIX 50 ML IV SCH ×5 (02:00→21:16)
[2019-04-21] MEDS: BLOOD SUGAR DIAGNOSTIC STRIP TEST SCH ×4 (07:30→21:00)
[2019-04-21] MEDS: INSULIN LISPRO 100 UNITS/ML SUBCUT SCH ×4 (08:00→21:00)
[2019-04-21] MEDS: NYSTATIN POWDER 15GM TOP SCH ×3 (09:00→17:51)
[2019-04-21] MEDS: LEVETIRACETAM 500 MG in SODIUM CHLORIDE 0.9% 100 ML IV SCH ×2 (09:35→21:17)
[2019-04-21] MEDS: VANCOMYCIN 1 G PREMIX 200 ML IV NR ×3 (15:41→21:17)
[2019-04-21] MEDS ORDERED: FAT EMULSIONS 500 ML IV SCH (21:00)
[2019-04-21] MEDS ORDERED: TOTAL PARENTERAL NUTRITION 1,400 ML IV SCH (21:00)
[2019-04-22] VITALS (10 sets, daily range): BP systolic 128–150; BP diastolic 61–85
[2019-04-22] MEDS: IPRATROPIUM/ALBUTEROL 0.5-3(2.5)MG/3ML NEB HHN SCH ×6 (00:57→19:43)
[2019-04-22] MEDS: PIPERACILLIN/TAZ 3.375G PREMIX 50 ML IV SCH ×4 (03:22→20:21)
[2019-04-22] MEDS: INSULIN LISPRO 100 UNITS/ML SUBCUT SCH ×3 (08:00→17:38)
[2019-04-22] MEDS: BLOOD SUGAR DIAGNOSTIC STRIP TEST SCH ×3 (08:27→17:35)
[2019-04-22] MEDS: LEVETIRACETAM 500 MG in SODIUM CHLORIDE 0.9% 100 ML IV SCH ×2 (08:48→20:21)
[2019-04-22] MEDS: LORAZEPAM 2MG/ML CPJ IV PRN (10:57)
[2019-04-22] MEDS: NYSTATIN POWDER 15GM TOP SCH ×3 (10:58→17:36)
[2019-04-22] MEDS ORDERED: DEXT 10% WATER 1,000 ML IV PRN (16:00)
[2019-04-22] MEDS ORDERED: TOTAL PARENTERAL NUTRITION 1,400 ML IV SCH (21:00)
== END 2019-04-22 21:50 | DRG 870 ==
LOC: ER 00:48 → 5EST 05:11 → EDBEDREQTM 05:13 → EDBEDREQ 05:13 → ENRESERV 07:02
PROVIDERS: ADMIT Hospitalist; ATTEND Hospitalist
PROC: 5A1955Z Respiratory Ventilation, Greater than 96 Consecutive Hours (ICD-10-PCS; principal; 2019-04-08)
PROC: 02HV33Z Insertion of Infusion Device into Superior Vena Cava, Percutaneous Approach (ICD-10-PCS; 2019-04-13)
PROC: B548ZZA Ultrasonography of Superior Vena Cava, Guidance (ICD-10-PCS; 2019-04-13)
PROC: 0DP6XUZ Removal of Feeding Device from Stomach, External Approach (ICD-10-PCS; 2019-04-16)
PROC: 0DH63UZ Insertion of Feeding Device into Stomach, Percutaneous Approach (ICD-10-PCS; 2019-04-16)
DX: A41.9 Sepsis, unspecified organism (principal); E43 Unspecified severe protein-calorie malnutrition; J96.20 Acute and chronic respiratory failure, unspecified whether with hypoxia or hypercapnia; K94.23 Gastrostomy malfunction; G93.40 Encephalopathy, unspecified; E87.0 Hyperosmolality and hypernatremia; L03.311 Cellulitis of abdominal wall; K94.22 Gastrostomy infection; K92.2 Gastrointestinal hemorrhage, unspecified; Z99.11 Dependence on respirator [ventilator] status; K94.21 Gastrostomy hemorrhage; J44.9 Chronic obstructive pulmonary disease, unspecified; R13.10 Dysphagia, unspecified; E87.6 Hypokalemia; F03.90 Unspecified dementia, unspecified severity, without behavioral disturbance, psychotic disturbance, mood disturbance, and anxiety; E11.51 Type 2 diabetes mellitus with diabetic peripheral angiopathy without gangrene; I11.9 Hypertensive heart disease without heart failure; Y83.8 Other surgical procedures as the cause of abnormal reaction of the patient, or of later complication, without mention of misadventure at the time of the procedure; Y73.8 Miscellaneous gastroenterology and urology devices associated with adverse incidents, not elsewhere classified; H40.9 Unspecified glaucoma; I25.10 Atherosclerotic heart disease of native coronary artery without angina pectoris; R47.02 Dysphasia; T17.990A Other foreign object in respiratory tract, part unspecified in causing asphyxiation, initial encounter; Z68.33 Body mass index [BMI] 33.0-33.9, adult; Z79.899 Other long term (current) drug therapy; Z79.82 Long term (current) use of aspirin; Y92.89 Other specified places as the place of occurrence of the external cause; X58.XXXA Exposure to other specified factors, initial encounter; Y93.89 Activity, other specified; Y99.8 Other external cause status
CPT/HCPCS: 36415; 36600; 71045; 76937; 80048; 80202; 82375; 82805; 82962; 83605; 83735; 84100; 84134; 84145; 84478; 84484; 86850; 86900; 93005; 93970; 94003; 94640; 94667; 97163; A6261; C1725; C1893; J0360; J1815; J1953; J2060; J2543; J3370; J3480; J3490; J7030; J7050; J7060; J7608; J7620; A4315

== ENCOUNTER 2019-10-06 22:31 | Inpatient (IN) | payer MEDICARE, BC, MEDICAID ==
[~2019-10-06] VITALS: Ht 165.1 cm; Wt 65.8 kg
[2019-10-06] MEDS ORDERED: ONDANSETRON HCL 4MG/2ML INJ IV STA (23:04)
[2019-10-06] MEDS ORDERED: SODIUM CHLORIDE 0.9% 1,000 ML IV ONE (23:04)
[2019-10-06] MEDS ORDERED: PIPERACILLIN/TAZ 3.375G PREMIX 50 ML IV ONE (23:15)
[2019-10-06] MEDS ORDERED: VANCOMYCIN 1 G PREMIX 200 ML IV ONE (23:15)
[2019-10-07] VITALS (8 sets, daily range): BP systolic 115–148; BP diastolic 59–76
[2019-10-07 00:12] LABS: HEMATOCRIT. 36.7 % (36.0-48.0); HEMOGLOBIN. 11.7 g/dL (12.0-16.0); MEAN CORPUSCULAR HEMOGLOBIN 25.9 pg (28.0-32.0); MEAN CORPUSCULAR VOLUME 81.3 fL (81.0-99.0); MEAN PLATELET VOLUME 9.6 fl (7.4-10.4); PLATELET 248 x1000/uL (130-400); RED BLOOD CELL COUNT 4.52 mill/uL (4.2-5.4); RED CELL DISTRIBUTION WIDTH 19.6 % (11.6-14.6)
[2019-10-07] MEDS ORDERED: SODIUM CHLORIDE 0.9% 1000ML BAG (SEPSIS BOLUS) IV ONE (00:15)
[2019-10-07 00:18] LABS: CHLORIDE 101 mEq/L (98-107)
[2019-10-07 00:18] LABS: BG BASE EXCESS 2.3 mmol/L (-2.0-2.0); BG CARBOXYHEMOGLOBIN 0.5 % (0.5-1.5); BG DEOXYHEMOGLOBIN 3.1 % (0.0-5.0); BG FRACTION INSPIRED OXYGEN 50; BG HCO3 ACT 25.4 mmol/L (22.0-26.0); BG METHEMOGLOBIN 0.1 % (0.0-1.5); BG OXYGEN SATURATION 96.9 % (92.0-98.5); BG OXYHEMOGLOBIN 96.3 % (94.0-97.0); BG PCO2 34.5 mmHg (35.0-45.0); BG PH 7.485 (7.350-7.450); BG PO2 87.5 mmHg (75.0-100.0); BG SAMPLE SITE LEFT RADIAL; BG TOTAL HEMOGLOBIN 12.5 g/dL (12.0-18.0); BG VENT MODE MASK - TRACH
[2019-10-07 00:19] LABS: INR 1.2; PROTHROMBIN TIME 11.9 sec (9.6-11.0)
[2019-10-07 00:39] LABS: ATYPICAL LYMPHOCYTES 2; PLATELET ESTIMATE NORMAL
[2019-10-07] MEDS ORDERED: HYDRALAZINE 20MG/ML VIAL IV PRN (02:15)
[2019-10-07 06:01] LABS: CLARITY URINE CLEAR (CLEAR); COLOR URINE YELLOW (YELLOW); KETONES URINE NEGATIVE (NEGATIVE); LEUKOCYTE ESTERASE URINE NEGATIVE (NEGATIVE); NITRITE URINE NEGATIVE (NEGATIVE); OCCULT BLOOD URINE NEGATIVE (NEGATIVE); PH URINE >=9.0 (4.5-8.0); PROTEIN URINE NEGATIVE (NEGATIVE); SPECIFIC GRAVITY URINE 1.018 (1.005-1.030); UROBILINOGEN URINE 0.2 E.U./dL (0.2-1.0)
[2019-10-07] MEDS ORDERED: ONDANSETRON HCL 4MG/2ML INJ IV PRN (10:30)
[2019-10-07] MEDS ORDERED: ACETAMINOPHEN 325MG TABLET GT PRN (10:30)
[2019-10-07] MEDS ORDERED: CLONIDINE 0.1MG TABLET PO PRN (10:30)
[2019-10-07] MEDS ORDERED: PIPERACILLIN/TAZ 3.375G PREMIX 50 ML IV SCH (10:30)
[2019-10-07] MEDS ORDERED: IPRATROPIUM/ALBUTEROL 0.5-3(2.5)MG/3ML NEB NEB PRN (10:30)
[2019-10-07] MEDS: IPRATROPIUM/ALBUTEROL 0.5-3(2.5)MG/3ML NEB NEB SCH ×2 (15:18→20:27)
[2019-10-07] MEDS ORDERED: FAMO-135 GT (15:56)
[2019-10-07] MEDS ORDERED: METO25TA6 GT (15:56)
[2019-10-07] MEDS ORDERED: CLON0.2T GT (15:56)
[2019-10-07] MEDS ORDERED: BISA10SU62 RC (15:56)
[2019-10-07] MEDS ORDERED: ZINC220T4 GT (15:56)
[2019-10-07] MEDS ORDERED: TOPUD GT (15:56)
[2019-10-07] MEDS ORDERED: METO5TAB86 GT (15:56)
[2019-10-07] MEDS ORDERED: DOCU250C14 GT (15:56)
[2019-10-07] MEDS ORDERED: KEPPSOL GT (15:56)
[2019-10-07] MEDS ORDERED: MULT1TAB67 PO (15:56)
[2019-10-07] MEDS ORDERED: CHOL200077 GT (15:56)
[2019-10-07] MEDS ORDERED: ASCO-339 MT (15:56)
[2019-10-07] MEDS ORDERED: FURO-152 GT (15:56)
[2019-10-07] MEDS: METOCLOPRAMIDE HCL 5MG TABLET GT SCH ×2 (17:00→18:18)
[2019-10-07] MEDS: PIPERACILLIN/TAZOBACTAM 2.25 G in DEXTROSE 5% WATER 50 ML IV SCH ×3 (18:00→23:18)
[2019-10-07] MEDS: ENOXAPARIN 40MG/0.4ML SYR SUBCUT SCH (18:18)
[2019-10-07] MEDS: VANCOMYCIN 1 G PREMIX 200 ML IV SCH (18:18)
[2019-10-07] MEDS: LEVETIRACETAM 500MG PREMIX 100 ML IV SCH (20:53)
[2019-10-07] MEDS: DEXT 5%/0.45% NACL 1000ML 1,000 ML IV SCH (20:53)
[2019-10-07] MEDS: FUROSEMIDE 40MG/4ML VIAL IVP SCH (20:54)
[2019-10-07] MEDS: METOPROLOL TARTRATE 25MG TABLET GT SCH (20:57)
[2019-10-07] MEDS ORDERED: SODIUM CHLORIDE 10% FOR INH 15ML VIAL NEB INH NR (21:30)
[2019-10-08] VITALS (11 sets, daily range): BP systolic 114–146; BP diastolic 50–77
[2019-10-08] MEDS: IPRATROPIUM/ALBUTEROL 0.5-3(2.5)MG/3ML NEB NEB SCH ×6 (00:50→22:15)
[2019-10-08] MEDS: PIPERACILLIN/TAZOBACTAM 2.25 G in DEXTROSE 5% WATER 50 ML IV SCH ×4 (05:16→21:08)
[2019-10-08 07:05] LABS: CHLORIDE 109 mEq/L (98-107)
[2019-10-08 07:06] LABS: BASOPHILS % 0.6 % (0.0-2.0); EOSINOPHILS % 2.1 % (0.0-5.0); LYMPHOCYTES % 22.2 % (20.0-50.0); MEAN CORPUSCULAR HEMOGLOBIN 26.3 pg (28.0-32.0); MEAN CORPUSCULAR VOLUME 83.9 fL (81.0-99.0); MEAN PLATELET VOLUME 9.5 fl (7.4-10.4); MONOCYTES % 9.4 % (2.0-8.0); NEUTROPHILS % 65.7 % (40.0-76.0); PLATELET 151 x1000/uL (130-400); RED BLOOD CELL COUNT 4.18 mill/uL (4.2-5.4); RED CELL DISTRIBUTION WIDTH 19.8 % (11.6-14.6)
[2019-10-08] MEDS: METOPROLOL TARTRATE 25MG TABLET GT SCH ×2 (08:52→20:45)
[2019-10-08] MEDS: METOCLOPRAMIDE HCL 10MG/2ML VIAL IV SCH ×3 (09:02→17:16)
[2019-10-08] MEDS: PANTOPRAZOLE SODIUM 40 MG/VIAL IV SCH (09:02)
[2019-10-08] MEDS: FUROSEMIDE 40MG/4ML VIAL IVP SCH (09:03)
[2019-10-08] MEDS: LEVETIRACETAM 500MG PREMIX 100 ML IV SCH ×2 (09:04→20:03)
[2019-10-08] MEDS: DEXT 5%/0.45% NACL 1000ML 1,000 ML IV SCH (12:42)
[2019-10-08] MEDS: ENOXAPARIN 40MG/0.4ML SYR SUBCUT SCH (12:42)
[2019-10-08] MEDS: VANCOMYCIN 1 G PREMIX 200 ML IV SCH (12:42)
[2019-10-09] VITALS (12 sets, daily range): BP systolic 100–155; BP diastolic 46–87
[2019-10-09] MEDS: IPRATROPIUM/ALBUTEROL 0.5-3(2.5)MG/3ML NEB NEB SCH ×6 (01:23→20:12)
[2019-10-09 04:26] LABS: BASOPHILS % 0.8 % (0.0-2.0); HEMATOCRIT. 33.4 % (36.0-48.0); HEMOGLOBIN. 10.7 g/dL (12.0-16.0); LYMPHOCYTES % 21.2 % (20.0-50.0); MEAN CORPUSCULAR HEMOGLOBIN 26.3 pg (28.0-32.0); MEAN CORPUSCULAR VOLUME 81.9 fL (81.0-99.0); MEAN PLATELET VOLUME 9.1 fl (7.4-10.4); MONOCYTES % 8.9 % (2.0-8.0); NEUTROPHILS % 65.1 % (40.0-76.0); PLATELET 182 x1000/uL (130-400); RED BLOOD CELL COUNT 4.08 mill/uL (4.2-5.4)
[2019-10-09 04:35] LABS: CHLORIDE 109 mEq/L (98-107)
[2019-10-09 04:46] LABS: VANCOMYCIN TROUGH 23.3 ug/mL (5.0-10.0)
[2019-10-09] MEDS: PIPERACILLIN/TAZOBACTAM 2.25 G in DEXTROSE 5% WATER 50 ML IV SCH ×3 (06:02→21:12)
[2019-10-09] MEDS: LEVETIRACETAM 500MG PREMIX 100 ML IV SCH ×2 (08:43→20:26)
[2019-10-09] MEDS: PANTOPRAZOLE SODIUM 40 MG/VIAL IV SCH (08:43)
[2019-10-09] MEDS: METOCLOPRAMIDE HCL 10MG/2ML VIAL IV SCH ×3 (08:43→17:00)
[2019-10-09] MEDS: FUROSEMIDE 20MG/2ML VIAL IVP SCH (08:44)
[2019-10-09] MEDS: METOPROLOL TARTRATE 25MG TABLET GT SCH ×2 (08:48→20:26)
[2019-10-09] MEDS: DEXT 5%/0.45% NACL 1000ML 1,000 ML IV SCH ×2 (10:50→18:24)
[2019-10-09] MEDS: ENOXAPARIN 40MG/0.4ML SYR SUBCUT SCH (10:50)
[2019-10-09] MEDS: POTASSIUM CHLORIDE 20MEQ/PACKET GT SCH (17:00)
[2019-10-09] MEDS ORDERED: ACETAMINOPHEN 650MG/20.3ML UDC GT PRN (18:00)
[2019-10-09] MEDS: VANCOMYCIN 1 G PREMIX 200 ML IV SCH (18:20)
[2019-10-10] VITALS (12 sets, daily range): BP systolic 103–141; BP diastolic 54–91
[2019-10-10] MEDS: ACETYLCYSTEINE 100MG/ML 10% VIAL 4ML INH SCH ×3 (00:44→16:45)
[2019-10-10] MEDS: IPRATROPIUM/ALBUTEROL 0.5-3(2.5)MG/3ML NEB NEB SCH ×5 (00:44→16:45)
[2019-10-10] MEDS: PIPERACILLIN/TAZOBACTAM 2.25 G in DEXTROSE 5% WATER 50 ML IV SCH ×3 (05:20→21:11)
[2019-10-10 07:24] LABS: BASOPHILS % 0.6 % (0.0-2.0); EOSINOPHILS % 3.8 % (0.0-5.0); HEMOGLOBIN. 10.3 g/dL (12.0-16.0); LYMPHOCYTES % 21.2 % (20.0-50.0); MEAN CORPUSCULAR HEMOGLOBIN 26.5 pg (28.0-32.0); MEAN CORPUSCULAR VOLUME 82.3 fL (81.0-99.0); MEAN PLATELET VOLUME 9.5 fl (7.4-10.4); MONOCYTES % 7.2 % (2.0-8.0); NEUTROPHILS % 67.2 % (40.0-76.0); PLATELET 199 x1000/uL (130-400); RED BLOOD CELL COUNT 3.89 mill/uL (4.2-5.4); RED CELL DISTRIBUTION WIDTH 18.4 % (11.6-14.6)
[2019-10-10 07:42] LABS: CHLORIDE 111 mEq/L (98-107)
[2019-10-10] MEDS: METOCLOPRAMIDE HCL 10MG/2ML VIAL IV SCH ×3 (08:13→17:15)
[2019-10-10] MEDS: METOPROLOL TARTRATE 25MG TABLET GT SCH ×2 (08:13→20:42)
[2019-10-10] MEDS: POTASSIUM CHLORIDE 20MEQ/PACKET GT SCH ×5 (08:13→20:40)
[2019-10-10] MEDS: PANTOPRAZOLE SODIUM 40 MG/VIAL IV SCH (08:14)
[2019-10-10] MEDS: FUROSEMIDE 20MG/2ML VIAL IVP SCH (08:14)
[2019-10-10] MEDS: LEVETIRACETAM 500MG PREMIX 100 ML IV SCH ×2 (08:23→20:41)
[2019-10-10] MEDS: ENOXAPARIN 40MG/0.4ML SYR SUBCUT SCH (11:32)
[2019-10-10] MEDS: VANCOMYCIN 1 G PREMIX 200 ML IV SCH (17:15)
[2019-10-10] MEDS: DEXT 5%/0.45% NACL 1000ML 1,000 ML IV SCH (17:16)
[2019-10-11] VITALS (12 sets, daily range): BP systolic 129–154; BP diastolic 73–92
[2019-10-11] MEDS: IPRATROPIUM/ALBUTEROL 0.5-3(2.5)MG/3ML NEB NEB SCH ×6 (01:25→20:15)
[2019-10-11] MEDS: PIPERACILLIN/TAZOBACTAM 2.25 G in DEXTROSE 5% WATER 50 ML IV SCH ×2 (06:01→13:57)
[2019-10-11] MEDS: ACETYLCYSTEINE 100MG/ML 10% VIAL 4ML INH SCH ×2 (07:57→16:29)
[2019-10-11] MEDS: POTASSIUM CHLORIDE 20MEQ/PACKET GT SCH ×4 (08:24→20:59)
[2019-10-11] MEDS: PANTOPRAZOLE SODIUM 40 MG/VIAL IV SCH (08:25)
[2019-10-11] MEDS: METOPROLOL TARTRATE 25MG TABLET GT SCH ×2 (08:25→20:59)
[2019-10-11] MEDS: FUROSEMIDE 20MG/2ML VIAL IVP SCH (08:25)
[2019-10-11] MEDS: METOCLOPRAMIDE HCL 10MG/2ML VIAL IV SCH ×3 (08:25→17:42)
[2019-10-11] MEDS: LEVETIRACETAM 500MG PREMIX 100 ML IV SCH ×2 (08:26→21:00)
[2019-10-11 09:07] LABS: BASOPHILS % 0.7 % (0.0-2.0); EOSINOPHILS % 2.8 % (0.0-5.0); HEMATOCRIT. 32.5 % (36.0-48.0); HEMOGLOBIN. 10.4 g/dL (12.0-16.0); LYMPHOCYTES % 17.6 % (20.0-50.0); MEAN CORPUSCULAR HEMOGLOBIN 26.3 pg (28.0-32.0); MEAN CORPUSCULAR VOLUME 82.5 fL (81.0-99.0); MEAN PLATELET VOLUME 9.4 fl (7.4-10.4); MONOCYTES % 7.6 % (2.0-8.0); NEUTROPHILS % 71.3 % (40.0-76.0); PLATELET 212 x1000/uL (130-400); RED BLOOD CELL COUNT 3.94 mill/uL (4.2-5.4); RED CELL DISTRIBUTION WIDTH 18.2 % (11.6-14.6)
[2019-10-11 09:24] LABS: CHLORIDE 113 mEq/L (98-107)
[2019-10-11 09:33] LABS: PHOSPHORUS 2.7 mg/dL (2.5-4.9)
[2019-10-11] MEDS: ENOXAPARIN 40MG/0.4ML SYR SUBCUT SCH (10:39)
[2019-10-12] VITALS (14 sets, daily range): BP systolic 91–166; BP diastolic 54–104
[2019-10-12] MEDS: IPRATROPIUM/ALBUTEROL 0.5-3(2.5)MG/3ML NEB NEB SCH ×7 (00:15→20:08)
[2019-10-12] MEDS: ACETYLCYSTEINE 100MG/ML 10% VIAL 4ML INH SCH ×4 (00:15→16:46)
[2019-10-12] MEDS: METOCLOPRAMIDE HCL 10MG/2ML VIAL IV SCH ×3 (09:08→17:13)
[2019-10-12] MEDS: POTASSIUM CHLORIDE 20MEQ/PACKET GT SCH ×4 (09:08→20:59)
[2019-10-12] MEDS: PANTOPRAZOLE SODIUM 40 MG/VIAL IV SCH (09:08)
[2019-10-12] MEDS: FUROSEMIDE 20MG/2ML VIAL IVP SCH (09:08)
[2019-10-12] MEDS: METOPROLOL TARTRATE 25MG TABLET GT SCH ×2 (09:08→20:59)
[2019-10-12] MEDS: LEVETIRACETAM 500MG PREMIX 100 ML IV SCH ×2 (11:38→21:00)
[2019-10-13] VITALS (13 sets, daily range): BP systolic 97–155; BP diastolic 57–92
[2019-10-13] MEDS: IPRATROPIUM/ALBUTEROL 0.5-3(2.5)MG/3ML NEB NEB SCH ×5 (04:25→20:41)
[2019-10-13 06:04] LABS: BASOPHILS % 0.7 % (0.0-2.0); EOSINOPHILS % 3.1 % (0.0-5.0); HEMATOCRIT. 36.8 % (36.0-48.0); HEMOGLOBIN. 11.6 g/dL (12.0-16.0); LYMPHOCYTES % 23.4 % (20.0-50.0); MEAN CORPUSCULAR HEMOGLOBIN 26.4 pg (28.0-32.0); MEAN CORPUSCULAR VOLUME 83.7 fL (81.0-99.0); MONOCYTES % 7.6 % (2.0-8.0); NEUTROPHILS % 65.2 % (40.0-76.0); RED CELL DISTRIBUTION WIDTH 18.5 % (11.6-14.6)
[2019-10-13 06:41] LABS: CHLORIDE 116 mEq/L (98-107)
[2019-10-13 08:38] LABS: PLATELET 183 x1000/uL (130-400)
[2019-10-13] MEDS: ACETYLCYSTEINE 100MG/ML 10% VIAL 4ML INH SCH ×2 (08:47→15:17)
[2019-10-13] MEDS: LEVETIRACETAM 500MG PREMIX 100 ML IV SCH (09:52)
[2019-10-13] MEDS: PANTOPRAZOLE SODIUM 40 MG/VIAL IV SCH (09:53)
[2019-10-13] MEDS: METOPROLOL TARTRATE 25MG TABLET GT SCH ×2 (09:53→22:03)
[2019-10-13] MEDS: POTASSIUM CHLORIDE 20MEQ/PACKET GT SCH ×2 (09:53→13:21)
[2019-10-13] MEDS: METOCLOPRAMIDE HCL 10MG/2ML VIAL IV SCH ×3 (09:53→17:00)
[2019-10-13] MEDS: FUROSEMIDE 20MG/2ML VIAL IVP SCH (09:53)
[2019-10-13] MEDS: LEVETIRACETAM 500MG/5ML CUP GT SCH (22:03)
[2019-10-14] VITALS (7 sets, daily range): BP systolic 108–129; BP diastolic 51–74
[2019-10-14] MEDS: IPRATROPIUM/ALBUTEROL 0.5-3(2.5)MG/3ML NEB NEB SCH ×3 (00:24→09:19)
[2019-10-14] MEDS: ACETYLCYSTEINE 100MG/ML 10% VIAL 4ML INH SCH (00:24)
[2019-10-14] MEDS: METOCLOPRAMIDE HCL 10MG/2ML VIAL IV SCH ×2 (08:15→09:00)
[2019-10-14] MEDS: PANTOPRAZOLE SODIUM 40 MG/VIAL IV SCH ×2 (08:15→09:00)
[2019-10-14] MEDS: METOPROLOL TARTRATE 25MG TABLET GT SCH (08:16)
[2019-10-14] MEDS: LEVETIRACETAM 500MG/5ML CUP GT SCH (08:32)
== END 2019-10-14 12:15 | DRG 871 ==
LOC: ER 22:31 → 3WST 10-07 00:48 → EDBEDREQTM 10-07 06:43 → EDBEDREQSVC 10-07 06:43 → ENRESERV 10-07 08:31 → CANRESERV 10-07 08:31 → ENRESERV 10-07 09:36 → 5EST 10-09 22:49
PROVIDERS: ADMIT Internal Medicine; ATTEND Internal Medicine
PROC: 06HY33Z Insertion of Infusion Device into Lower Vein, Percutaneous Approach (ICD-10-PCS; principal; 2019-10-07)
PROC: 0D20XUZ Change Feeding Device in Upper Intestinal Tract, External Approach (ICD-10-PCS; 2019-10-09)
DX: A41.1 Sepsis due to other specified staphylococcus (principal); J96.21 Acute and chronic respiratory failure with hypoxia; J69.0 Pneumonitis due to inhalation of food and vomit; J95.851 Ventilator associated pneumonia; K92.2 Gastrointestinal hemorrhage, unspecified; G93.40 Encephalopathy, unspecified; I50.22 Chronic systolic (congestive) heart failure; K94.23 Gastrostomy malfunction; E11.52 Type 2 diabetes mellitus with diabetic peripheral angiopathy with gangrene; E87.6 Hypokalemia; F03.90 Unspecified dementia, unspecified severity, without behavioral disturbance, psychotic disturbance, mood disturbance, and anxiety; G40.909 Epilepsy, unspecified, not intractable, without status epilepticus; I11.0 Hypertensive heart disease with heart failure; I25.10 Atherosclerotic heart disease of native coronary artery without angina pectoris; R13.10 Dysphagia, unspecified; K21.9 Gastro-esophageal reflux disease without esophagitis; Y83.3 Surgical operation with formation of external stoma as the cause of abnormal reaction of the patient, or of later complication, without mention of misadventure at the time of the procedure; J44.9 Chronic obstructive pulmonary disease, unspecified; B96.5 Pseudomonas (aeruginosa) (mallei) (pseudomallei) as the cause of diseases classified elsewhere; R47.02 Dysphasia; Z79.899 Other long term (current) drug therapy; Z86.73 Personal history of transient ischemic attack (TIA), and cerebral infarction without residual deficits; Z87.11 Personal history of peptic ulcer disease; Z93.0 Tracheostomy status; Y92.89 Other specified places as the place of occurrence of the external cause
CPT/HCPCS: 36415; 36556; 36600; 71045; 80048; 80053; 80202; 81003; 82375; 82805; 83605; 83735; 83880; 84100; 84145; 84484; 85025; 86850; 86900; 87070; 87077; 87186; 87804; 93005; 94640; 99291; C9113; J0360; J1650; J1940; J1953; J2405; J2543; J2765; J3370; J7030; J7040; J7060; J7131; J7608; J8597; A4315